=== PATIENT | male | born 1930 | race Caucasian/White ===

== ENCOUNTER 2016-12-16 08:09 | Emergency (ER) | payer OTHER ==
[2016-12-16 08:38] VITALS: TEMP 98; BMI 21.9
[2016-12-16] MEDS ORDERED: SODIUM CHLORIDE 1,000 ML IV STA (09:17)
--- NOTE | 2016-12-16 09:18 | PDOC ---
History of Present Illness - General Chief Complaint: Hematuria Stated Complaint: BLEEDING Time Seen by Provider: 12/16/16 08:31 - History of Present Illness Initial Comments: 12/16/16 09:13 85 yo M with h/o HTN, BPH, and Dementia who presents with hematuria. Patient is poor historian and speech is unclear. Patient a resident of [facility]. States that he is unsure why he presents to ED today. Denies current urinary complaints, but occasional endorses dysuria. Reports that he normally has davis catheter in place. + urinary hesitancy. + constipation with last BM 3 -4 days ago, + increased thirst with minimal oral PO hydration. Denies N/V, fevers/chills, chest pain, diaphoresis, SOB, lightheadedness, syncope, increased urinary frequency or urgency. PCP Dr. Stella Riddle. Paperwork from [facility] documents that last urinary output was 400 cc emptied at 7:30 AM. Currently 200 CC in davis bag. Per jail telephone encounter. The patient was transferred to the facility (12/13 )with 70 cc of blood in davis the following day (12/14). Orders were placed to hold ASA and observe. Patient davis was occluded internally with sediment and deflated on (12/15) with 800 cc tea colored urine drained. Recently admitted on 12/04-12/13 for AMS with bladder U/S revealing mod BL hydronephrosis 2/2 chronic bladder obx and diverticlua of bladder. Was recommenced he get cystocopic evaluation. Past History - Past Medical History Allergies/Adverse Reactions: Allergies Allergy/AdvReac Type Severity Reaction Status Date / Time No Known Allergies Allergy Verified 12/16/16 08:32 Home Medications: Ambulatory Orders Metoprolol Tartrate [Lopressor -] 50 mg PO DAILY 09/05/12 Memantine HCl [Namenda -] 5 mg PO BID #30 tab 12/13/16 Acetaminophen [Tylenol] 650 mg PO Q6H PRN 12/16/16 Levofloxacin [Levaquin] 750 mg PO DAILY #4 tab 12/16/16 Tamsulosin HCl [Flomax] 0.4 mg PO DAILY 12/16/16 Anemia: Yes COPD: No Dementia: Yes (ALZHEIMERS.) Disorders: Yes (BPH.) HTN: Yes Hypercholesterolemia: Yes - Suicide/Smoking/Psychosocial Hx Smoking History: Never smoked Have you smoked in the past 12 months: No Hx Alcohol Use: No Drug/Substance Use Hx: No Substance Use Type: None Hx Substance Use Treatment: No Review of Systems - Review of Systems Comments:: 12/16/16 09:20 GENERAL/CONSTITUTIONAL: No fever or chills. No weakness. HEAD, EYES, EARS, NOSE AND THROAT: No change in vision. No ear pain or discharge. No sore throat.- CARDIOVASCULAR: No chest pain or shortness of breath RESPIRATORY: No cough, wheezing, or hemoptysis. GASTROINTESTINAL: No nausea, vomiting, diarrhea or constipation. GENITOURINARY: + urinary hesitancy, No dysuria, frequency, or change in urination. MUSCULOSKELETAL: No joint or muscle swelling or pain. No neck or back pain. SKIN: No rash NEUROLOGIC: No headache, vertigo, loss of consciousness, or change in strength/ sensation. ENDOCRINE: No increased thirst. No abnormal weight change HEMATOLOGIC/LYMPHATIC: No anemia, easy bleeding, or history of blood clots. ALLERGIC/IMMUNOLOGIC: No hives or skin allergy. *Physical Exam - Vital Signs Last Vital Signs Temp Pulse Resp BP Pulse Ox 98 F 84 18 131/74 98 12/16/16 08:29 12/16/16 08:29 12/16/16 08:29 12/16/16 08:29 12/16/16 08:29 - Physical Exam Comments: 12/16/16 09:20 GENERAL: Awake, alert, and fully oriented, in no acute distress HEAD: No signs of trauma, normocephalic, atraumatic EYES: + conjuctival pallor. PERRLA, EOMI, sclera anicteric. ENT: Mucosal membranes dry. Auricles normal inspection, hearing grossly normal, nares patent, oropharynx clear without exudates. NECK: Normal ROM, supple, no lymphadenopathy, JVD, or masses LUNGS: No distress, speaks full sentences, clear to auscultation bilaterally HEART: Regular rate and rhythm, normal S1 and S2, no murmurs, rubs or gallops, peripheral pulses normal and equal bilaterally. ABDOMEN: + Davis catheter with dark red urine draining.200cc. Absent sediment or clots. + Suprpapubic ttp. Soft, nontender, normoactive bowel sounds. No guarding, no rebound. No masses. Neg CVA ttp. EXTREMITIES : Normal inspection, Normal range of motion, no edema. No clubbing or cyanosis. SKIN: Warm, Dry, normal turgor, no rashes or lesions noted. ED Treatment Course - LABORATORY CBC & Chemistry Diagram: 12/16/16 09:39 12/16/16 09:39 Medical Decision Making - Medical Decision Making 85 yo M with h/o HTN, BPH, and Dementia who presents with hematuria. Patient is poor historian and speech is unclear. No urinary complaints today, but occasionally endorses dysuria. No systemic complaints of fevers/chills, chest pain, diaphoresis, SOB, lightheadedness, syncope. Patient appears dehydrated with dry mucosal membranes and + suprapubic ttp. Davis catheter reveals dark red urine. Davis with obstruction (12/15). CT ( 12/07) Mod BL hydronephrosis 2/ 2 bladder obx. DDx: Hemmorhagic cystitis, UTI, Urolithiasis, davis obx. ED Course: UA, Urine Cx 12/16/16 10:39 CBC/CMP Unremarkable. UA: 12/16/16 10:39 + Nitirite, 3+ blood, 1 + Ketones Levofloxacin 750 mg. 12/16/16 11:59 Renal U/S bladder: Resolution of BL hydronephrosis ( 12/07). Continued slight prominence of right upper collecting system. *DC/Admit/Observation/Transfer Diagnosis at time of Disposition: Cystitis - Discharge Dispostion Disposition: HOME Admit: No - Prescriptions Prescriptions: Levofloxacin [Levaquin] 750 mg PO DAILY #4 tab - Referrals Referrals: Sean Riddle MD [Primary Care Provider] - - Patient Instructions Printed Discharge Instructions: DI for Acute Cystitis, DI for Hemorrhagic Cystitis Additional Instructions: Please return to ED if you experience fevers/chills, increased blood in urine, flank pain, worsening abdominal pain, or worsening symptoms. Please take Levauqin 750 mg PO QD x 4 days starting ( 12/17). - Attestations Physician Attestion: 12/16/16 12:29 I attest to the information in this chart
[2016-12-16 09:51] LABS: BASOPHIL 0.4 % (0-2.0); EOSINOPHIL 0.7 % (0-4.5); MCH 28.7 pg (25.7-33.7); MCHC 33.2 g/dl (32.0-35.9); MEAN CELL VOLUME 86.6 fl (80-96); MEAN PLT VOLUME 7.9 fl (7.5-11.1); NEUTROPHILS 82.3 % (42.8-82.8); PLATELET COUNT 280 K/MM3 (134-434); RDW 13.6 % (11.9-15.9); WHITE BLOOD COUNT 10.4 K/mm3 (4.0-10.0)
[2016-12-16 09:52] LABS: PH,URINE 6.5 (5.0-8.0); URINE BILIRUBIN 3+ (NEGATIVE); URINE BLOOD 3+ (NEGATIVE); URINE COLOR DK. RED; URINE GLUCOSE (UA) TRACE (NEGATIVE); URINE KETONE 1+ (NEGATIVE); URINE UROBILINOGEN 4.0 E.U/dl mg/dL (0.2-1.0)
[2016-12-16 09:53] LABS: URINE APPEARANCE HAZY; URINE NITRITE POSITIVE (NEGATIVE); URINE PROTEIN 3+ (NEGATIVE)
[2016-12-16 10:17] LABS: ALBUMIN 3.2 g/dl (3.4-5.0); ALK PHOS 70 U/L (45-117); ANION GAP 6 (8-16); BILIRUBIN,TOTAL 0.7 mg/dL (0.2-1.0); CALCIUM 9.1 mg/dL (8.5-10.1); CO2 28 mmol/L (21-32); CREATININE 1.1 mg/dL (0.7-1.3); GLUCOSE,RANDOM 112 mg/dL (74-106); SGOT/AST 18 U/L (15-37); SGPT/ALT 25 U/L (12-78); TOT PROT 6.4 g/dl (6.4-8.2)
[2016-12-16] MEDS ORDERED: LEVOFLOXACIN 750 MG TABLET PO SCH (11:00)
[2016-12-16] MEDS ORDERED: PRESCRIPTION PAD 1 EACH EACH NR ONE (12:28)
--- NOTE | 2016-12-16 12:35 | PDOC ---
Attending Attestation - Resident Resident Name: Adán Coello - ED Attending Attestation I have performed the following: I have examined & evaluated the patient, The case was reviewed & discussed with the resident, I agree w/resident's findings & plan, Exceptions are as noted - HPI HPI: 12/16/16 12:36 85 M with h/o HTN, BPH with chronic indwelling davis, presents to ER with hematuria. Pt denies abdominal pain. Denies F/C. Per longterm report, davis has still been draining freely without signs of obstruction. - Physicial Exam PE: 12/16/16 12:37 "GENERAL: Awake, alert, and fully oriented, in no acute distress HEAD: No signs of trauma EYES: PERRLA, EOMI, sclera anicteric, conjunctiva clear ENT: Auricles normal inspection, hearing grossly normal, nares patent, oropharynx clear without exudates. Moist mucosa NECK: Nontender, no stepoffs, Normal ROM, supple, no lymphadenopathy, JVD, or masses LUNGS: Breath sounds equal, clear to auscultation bilaterally. No wheezes, and no crackles HEART: Regular rate and rhythm, normal S1 and S2, no murmurs, rubs or gallops ABDOMEN: Soft, nontender, normoactive bowel sounds. No guarding, no rebound. No masses : Davis in place, draining red urine, no clots EXTREMITIES: Normal range of motion, no edema. No clubbing or cyanosis. No cords, erythema, or tenderness NEUROLOGICAL: Cranial nerves II through XII intact. 5/5 strength and sensation in all extremities, Normal speech, normal gait SKIN: Warm, Dry, normal turgor, no rashes or lesions noted. " - Medical Decision Making 12/16/16 12:45 85 M with hematuria. Likely UTI. Pt with no signs of obstruction at this time, davis flowing freely. - Renal US - UA 12/16/16 15:00 UA consistent with hemorrhagic cystitis. Pt reassessed - appears at baseline mentation with no complaints at this time. Davis continues to drain blood tinged urine, no evidence of clots or obstruction. Vitals normal, pt clinically stable for DC. Abx sent to pharmacy
[2016-12-16] MEDS ORDERED: LEVOFLOXACIN 250 MG TABLET (FP) ONE (12:53)
[2016-12-16] MEDS ORDERED: LEVOFLOXACIN 500 MG TABLET (FP) ONE (12:53)
[2016-12-16 13:37] VITALS: BP 129/67; PULSE 80
[2016-12-16 14:04] LABS: URINE LEUK ESTERASE 3+ (NEGATIVE)
--- NOTE | 2016-12-18 07:20 | PDOC ---
Patient Follow-up (Call Back) - Post ED Follow - Up Chief Complaint: Hematuria Condition at time of discharge: Stable Disposition at time of original discharge: SNF FACILITY Reason for Call Back: Abnwl. Microbiology (Urine cx (+) for staph coagulase neg. with colony count >100,000. Pt. appropriately treated with Levofloxacin.)
--- NOTE | 2016-12-24 11:57 | EKG ---
Test Reason : Blood Pressure : / mmHG Vent. Rate : 083 BPM Atrial Rate : 083 BPM P-R Int : 190 ms QRS Dur : 086 ms QT Int : 378 ms P-R-T Axes : 057 -19 039 degrees QTc Int : 444 ms NORMAL SINUS RHYTHM INFERIOR INFARCT , AGE UNDETERMINED ABNORMAL ECG WHEN COMPARED WITH ECG OF 06-DEC-2016 09:29, NO SIGNIFICANT CHANGE WAS FOUND Confirmed by JAMIE ROBLES MD ([id number]) on 12/24/2016 11:57:10 AM Referred By: Confirmed By:JAMIE ROBLES MD
== END 2016-12-16 13:43 ==
LOC: JER 08:09
PROC: 3E0337Z Introduction of Electrolytic and Water Balance Substance into Peripheral Vein, Percutaneous Approach (ICD-10-PCS; principal; 2016-12-16)
DX: N30.01 Acute cystitis with hematuria (principal); I10 Essential (primary) hypertension; E78.00 Pure hypercholesterolemia, unspecified; G30.9 Alzheimer's disease, unspecified; F02.80 Dementia in other diseases classified elsewhere, unspecified severity, without behavioral disturbance, psychotic disturbance, mood disturbance, and anxiety
CPT/HCPCS: 36415; 76775-TC; 80053; 81003; 81015; 85025; 87086; 87186; 93005; 93010; 99284-25

== ENCOUNTER 2017-01-31 11:52 | Day surgery (SDC) | payer OTHER ==
[2016-12-29 16:23] VITALS: BMI 22.8
[2017-01-31] MEDS ORDERED: PROPOFOL 20 ML ONE (13:24)
[2017-01-31] MEDS ORDERED: oxyCODONE HCL 5 MG TABLET PO PRN (14:32)
[2017-01-31] MEDS ORDERED: LIDOCAINE HCL/PF 2% SDV 5ML VIAL ONE (14:35)
[2017-01-31] MEDS ORDERED: LEVOFLOXACIN 500 MG IVPB 500 MG/100 ML BAG IVPB ONE ×2 (14:43→15:11)
[2017-01-31] MEDS ORDERED: LACTATED RINGERS SOLUTION 1,000 ML IV SCH (14:45)
[2017-01-31] MEDS ORDERED: LEVOFLOXACIN 500 MG PREMIX BAG IVPB ONE (14:50)
[2017-01-31] MEDS ORDERED: GENTAMICIN SO4 80 MG/2 ML VIAL IVPB ONE (15:07)
[2017-01-31] MEDS ORDERED: DEXAMETHASONE SOD PHOSPHATE 4 MG/1 ML VIAL ONE (15:10)
[2017-01-31] MEDS ORDERED: GENTAMICIN SO4 80 MG/2 ML VIAL ONE (15:11)
[2017-01-31 17:06] VITALS: TEMP 97.7
--- NOTE | 2017-01-31 17:09 | OP ---
Operative Note - Note: Operative Date: 01/31/17 Pre-Operative Diagnosis: left 1.5 cm ureteral stone Operation: cystoscopy/left retrograde pyelogram/left ureteroscopic laser lithotripsy/left ureteral stent placement Findings: 1.5cm left ureteral stone with 4/5 hydroureteronephrosis. Residual stones migrated to the left kidney Post-Operative Diagnosis: Same as Pre-op Surgeon: Jose Cruz Anesthesia: General Drains & Tubes with Location: 6 fr/24 cm left ureteral stent
[2017-01-31 19:55] VITALS: BP 153/73; PULSE 83
--- NOTE | 2017-01-31 22:46 | OP ---
DATE OF OPERATION: 01/31/2017 PREOPERATIVE DIAGNOSIS: Left ureteral stone. POSTOPERATIVE DIAGNOSIS: Left ureteral stone with a grade 4/5 hydroureteronephrosis. PROCEDURE: Cystoscopy, left retrograde pyelogram, left ureteroscopy, left ureteroscopic laser lithotripsy, left ureteral stone basketing, and left ureteral stent placement. ATTENDING: Jose Dias MD ANESTHESIA: General. DESCRIPTION OF OPERATION: The patient was brought in the operating room and placed in supine position on the operating room table. General anesthesia was administered, and the patient was placed in a dorsal lithotomy position. The patient was given a dose of gentamicin. The patient had been on Levaquin preoperatively. At this point, cystoscopy was performed. A 3+ obstructive prostate with 3+ bladder trabeculation was noted. The anatomy of the bladder was very difficult. There was gross pyuria noted on emptying the bladder. The bladder was irrigated free of all infected urine. At this point, a retrograde pyelogram was performed, which showed a 1.5+ lower left ureteral stone. A retrograde pyelogram showed a grade 4/5 hydroureteronephrosis. At this point, a wire was passed with difficulty into the kidney. With this accomplished, ureteroscopy was performed, and a large stone was noted. A holmium laser was utilized, and the stone was fragmented into multiple pieces. Stone basketing was then performed, and all remnants sent to the lab for pathology. A few fragments migrated into the kidney and will require shock wave lithotripsy at a later date. A 6-Serbian 26-cm stent was left in place. No complications were noted. The patient tolerated the procedure very well. Marybel [id number]
--- NOTE | 2017-02-02 18:06 | PATH ---
Surgical Pathology Report Patient Name: DAVID SOLIS [facility]. Rec. #: [id number] /Age/Gender: 1930 (Age: 86) / M Account: [id number] Location: U SURGICAL Taken: 01/31/2017 Received: 02/01/2017 Reported: 02/02/2017 Physicians: Jose Cruz Specimen(s) Received URETERAL STONE Clinical History Calculus of kidney Final Diagnosis URETERAL STONES, REMOVAL: URETERAL CALCULI. MACROSCOPIC DIAGNOSIS. Electronically Signed Maricruz Tuttle M.D. Gross Description Received fresh labeled "ureteral stones," is a 1.5 x 0.8 x 0.3 cm aggregate of black, irregular to fragmented calculi. The specimen is sent for chemical analysis. 02/01/201702/01/2017
[2017-02-11 00:06] LABS: CA OXALATE MONOHYDR. 95 % (.)
== END 2017-01-31 17:30 ==
LOC: JASU-SURG 11:52
PROVIDERS: ATTEND Urology
PROC: 0TF78ZZ Fragmentation in Left Ureter, Via Natural or Artificial Opening Endoscopic (ICD-10-PCS; principal; 2017-01-31 09:00)
PROC: 0T778DZ Dilation of Left Ureter with Intraluminal Device, Via Natural or Artificial Opening Endoscopic (ICD-10-PCS; 2017-01-31 09:00)
DX: N13.2 Hydronephrosis with renal and ureteral calculous obstruction (principal)
CPT/HCPCS: 36415; 76000-TC; 82360; 87086; 87186; 88300-TC; 94760

== ENCOUNTER 2017-02-04 12:19 | Inpatient (IN) | payer OTHER ==
--- NOTE | 2017-02-04 12:41 | PDOC ---
History of Present Illness - General Chief Complaint: Syncope/Near Syncope Stated Complaint: SYNCOPE Time Seen by Provider: 02/04/17 12:32 - History of Present Illness Initial Comments: 02/04/17 13:06 The patient is an 86 year old male with a history of dementia, UTI, BBH, CVA, HTN, Anemia who presents from [facility] for evaluation following a syncopal episode. The patient is a poor historian and the retirement was contacted for the history. The patient had a recent uretal stent placed on . They report that the patient had an unwitnessed fall earlier today at 3am. They report that the patient then had a syncopal episode after an hour of PT prompting his presentation to the ED today. It is unclear if the patient experienced any head trauma. The patient denies any complaints at this time besides some mild generalized weakness and does not recall the event. He denies fevers, chills, headache, SOB, chest pain, abdominal pain. Past History - Past Medical History Allergies/Adverse Reactions: Allergies Allergy/AdvReac Type Severity Reaction Status Date / Time No Known Allergies Allergy Verified 02/04/17 12:22 Home Medications: Ambulatory Orders Metoprolol Tartrate [Lopressor -] 50 mg PO DAILY 09/05/12 Memantine HCl [Namenda -] 5 mg PO BID #30 tab 12/13/16 Acetaminophen [Tylenol] 650 mg PO Q6H PRN 12/16/16 Tamsulosin HCl [Flomax] 0.4 mg PO DAILY 12/16/16 Atorvastatin Ca [Lipitor] 10 mg PO HS 12/20/16 Donepezil HCl [Aricept -] 5 mg PO DAILY 12/20/16 Mirtazapine [Remeron -] 15 mg PO HS 12/20/16 Bacitracin - [Bacitracin Topical Ointment -] 1 applic TP BID 02/04/17 Docusate Sodium [Colace -] 200 mg PO BID 02/04/17 Levofloxacin [Levaquin -] 500 mg PO DAILY 02/04/17 Polyethylene Glycol 3350 [Miralax (For Daily Use) -] 17 gm PO BID 02/04/17 Sennosides [Senna] 2 tab PO DAILY 02/04/17 Anemia: Yes CVA: No COPD: No Dementia: Yes (ALZHEIMERS.) Diabetes: No GI Disorders: No Disorders: Yes (BPH.) HTN: Yes Hypercholesterolemia: Yes Liver Disease: No Seizures: No Thyroid Disease: No - Surgical History Abdominal Surgery: No Appendectomy: No Cardiac Surgery: No Cholecystectomy: No Lung Surgery: No Neurologic Surgery: No Orthopedic Surgery: No - Suicide/Smoking/Psychosocial Hx Smoking History: Never smoked Have you smoked in the past 12 months: No Hx Alcohol Use: No Drug/Substance Use Hx: No Substance Use Type: None Hx Substance Use Treatment: No Review of Systems - Review of Systems Comments:: 02/04/17 13:12 Constitutional: No fevers, chills, fatigue, malaise HEENT: No Rhinorrhea, nasal congestion, visual changes Cardiovascular: Syncope. No chest pain, palpitations, lightheadedness Respiratory: No Cough, SOB, Hemoptysis, Gastrointestinal: No Abdominal pain, Nausea, Vomiting, Constipation, Diarrhea, Melena Genitourinary: No Dysuria, Frequency, Urgency, Hesitancy, Hematuria, Flank pain Musculoskeletal: No Myalgia, arthralgia Skin: No rashes, bruising, pallor Neurologic: No Headache, Dizziness, Numbness, or Tingling Psychiatric: No Hallucinations. No SI or HI *Physical Exam - Vital Signs Last Vital Signs Temp Pulse Resp BP Pulse Ox 97.8 F 74 18 116/71 100 02/04/17 12:22 02/04/17 12:22 02/04/17 12:22 02/04/17 12:22 02/04/17 12:22 - Physical Exam Comments: 02/04/17 13:14 General Appearance: Nourished. No Apparent Distress HEENT: EOMI, ASHLYN. No Pharyngeal Erythema, Tonsillar Exudate, Tonsillar Erythema Neck: No Cervical Lymphadenopathy Respiratory/Chest: Lungs Clear, Normal Breath Sounds. No Crackles, Rales, Rhonchi, Wheezing Cardiovascular: Regular Rhythm, Regular Rate. 2/6 systolic murmur noted on exam. No Gallops, Rubs Gastrointestinal/Abdominal: Normal Bowel Sounds, Soft. No Guarding, Rebound, Tenderness Musculoskeletal: No CVA Tenderness Extremity: Normal Capillary Refill Integumentary: Normal Color, Dry, Warm Neurologic: envelope addresser II-XII NML intact, Fully Oriented, Alert, Normal Mood/Affect, Normal Response, Heart Score/ECG Review #1 ECG reviewed & interpreted by me at: 14:01 General ECG Interpretation: Sinus Rhythm, Normal Rate, Normal Intervals, No acute ischemic changes Compared to previous ECG there are: No significant change (12/20/16) ED Treatment Course - LABORATORY CBC & Chemistry Diagram: 02/04/17 13:30 02/04/17 13:30 Medical Decision Making - Medical Decision Making 02/04/17 13:16 The patient is an 86 year old male with a history of dementia, UTI, BBH, CVA, HTN, Anemia who presents from [facility] for evaluation following a syncopal episode. Differential includes but is not limited to: Arrhythmia, ACS , dehydration, UTI, intracranial process, infectious, metabolic derangement. Given the patient's unclear history of head trauma we will obtain a head CT to evaluate for intracranial process. It is possible the patient's syncopal episode is due to his hour of PT, but given the unclear history, it is also possible that he experienced an acs or arrhythmic event. We will obtain a cbc, cmp, ua, urine culture, cardiac enzymes and EKG to evaluate for possible etiologies. We will continue to monitor and reassess. 02/04/17 18:24 cbc demonstrates an elevated wbc to 14. cmp, ua, troponin, ekg are unremarkable. Head CT is unremarkable. We believe that given the patient's syncopal episode, he requires tele obs admission for further monitoring and management. We have paged the admitting team and are awaiting callback. 02/04/17 21:28 Discussed the case with the hospitalist team who accepted the patient for admission. *DC/Admit/Observation/Transfer Diagnosis at time of Disposition: Syncope Qualifiers: Syncope type: unspecified Qualified Code(s): R55 - Syncope and collapse Fall Qualifiers: Encounter type: initial encounter Qualified Code(s): W19.XXXA - Unspecified fall, initial encounter - Discharge Dispostion Condition at time of disposition: Stable Admit: Yes - Referrals - Patient Instructions - Post Discharge Activity
[2017-02-04 13:53] LABS: BASO % 0.1 % (0-2.0); EOS % 0.1 % (0-4.5); HEMATOCRIT 31.8 % (35.4-49); HEMOGLOBIN 10.1 GM/dL (11.7-16.9); LYMPH % 3.8 % (8-40); MCH 26.8 pg (25.7-33.7); MCHC 31.6 g/dl (32.0-35.9); MEAN CELL VOLUME 84.6 fl (80-96); MEAN PLT VOLUME 8.1 fl (7.5-11.1); MONO % 3.1 % (3.8-10.2); NEUT % 92.9 % (42.8-82.8); PLATELET COUNT 243 K/MM3 (134-434); RBC 3.76 M/mm3 (4.00-5.60); RDW 14.9 % (11.9-15.9); WHITE BLOOD COUNT 14.8 K/mm3 (4.0-10.0)
[2017-02-04 14:31] LABS: ALBUMIN 2.5 g/dl (3.4-5.0); ANION GAP 11 (8-16); BILIRUBIN,TOTAL 0.4 mg/dL (0.2-1.0); BLOOD UREA NITROGEN 59 mg/dL (7-18); CALCIUM 8.7 mg/dL (8.5-10.1); CHLORIDE 106 mmol/L (98-107); CO2 25 mmol/L (21-32); CREATININE 2.2 mg/dL (0.7-1.3); GLUCOSE,RANDOM 116 mg/dL (74-106); POTASSIUM 4.5 mmol/L (3.5-5.1); SGOT/AST 31 U/L (15-37); SGPT/ALT 32 U/L (12-78); SODIUM 142 mmol/L (136-145); TOT PROT 6.9 g/dl (6.4-8.2)
[2017-02-04 14:34] LABS: ALK PHOS 87 U/L (45-117)
[2017-02-04] MEDS ORDERED: SODIUM CHLORIDE 500 ML IV STA (14:53)
--- NOTE | 2017-02-04 15:14 | PDOC ---
Attending Attestation - Resident Resident Name: Jose G Braga - ED Attending Attestation I have performed the following: I have examined & evaluated the patient, The case was reviewed & discussed with the resident, I agree w/resident's findings & plan, Exceptions are as noted - HPI HPI: 02/04/17 15:12 86-year-old with past medical history of urinary tract infection, dementia, hypertension, anemia, stroke, diabetes presents with fall versus syncope. There is a question at the retirement if the patient fell approximately 3 in the morning but the patient is unable to characterize. He also reportedly had syncope. Otherwise, per unable to obtain rest review systems given his dementia. - Physicial Exam PE: 02/04/17 15:12 GENERAL: Awake, alert. No apparent distress HEAD: No signs of trauma EYES: PERRLA, EOMI ENT: Auricles normal inspection, hearing grossly normal, nares patent, NECK: Normal ROM, supple LUNGS: Breath sounds equal, clear to auscultation bilaterally. No wheezes, and no crackles HEART: Regular rate and rhythm, normal S1 and S2, no murmurs, rubs or gallops ABDOMEN: Soft, nontender, normoactive bowel sounds. No guarding, no rebound. No masses EXTREMITIES: Normal range of motion, no edema. No clubbing or cyanosis. No cords, erythema, or tenderness NEUROLOGICAL: Cranial nerves II through XII grossly intact. SKIN: Warm, Dry, normal turgor, no rashes or lesions noted. - Medical Decision Making 02/04/17 15:12 Vital Signs Temp Pulse Resp BP Pulse Ox 97.8 F 74 18 116/71 100 02/04/17 12:22 02/04/17 12:22 02/04/17 12:22 02/04/17 12:22 02/04/17 12:22 We'll need to evaluate for syncope and potential cardiac etiology. Given the fall, we'll obtain a head CT. Labs including troponin. Cardiac telemetry. We'll obtain aUA to rule out urinary tract infection. Ultimately, the patient should be admitted to the hospital for further observation. Heart Score/ECG Review #1 ECG reviewed & interpreted by me at: 13:45 02/04/17 15:14 NSR 75, no std/tr, T wave aVL, QTC 422 msec
[2017-02-04 17:27] LABS: URINE APPEARANCE CLOUDY; URINE BILIRUBIN NEGATIVE (NEGATIVE); URINE BLOOD 2+ (NEGATIVE); URINE COLOR YELLOW; URINE GLUCOSE (UA) NEGATIVE (NEGATIVE); URINE KETONE NEGATIVE (NEGATIVE); URINE NITRITE NEGATIVE (NEGATIVE); URINE UROBILINOGEN NEGATIVE mg/dL (0.2-1.0)
[2017-02-04 18:04] LABS: URINE LEUK ESTERASE 3+ (NEGATIVE); URINE PROTEIN 2+ (NEGATIVE)
[2017-02-04 18:25] LABS: EPI CELLS RARE /HPF (FEW); URINE MUCUS RARE
[2017-02-04] MEDS ORDERED: VANCOMYCIN 1 GRAM (PRE-DOCKED) 1,000 MG/250 ML BAG IVPB ONE (20:10)
[2017-02-04] MEDS ORDERED: PIPERACIL/TAZOB 3.375 GM 3.375 GM/50 ML PREMIX IVPB ONE (20:11)
[2017-02-04] MEDS ORDERED: SODIUM CHLORIDE 1,000 ML IV SCH (20:15)
[2017-02-04] MEDS ORDERED: PIPERACILLIN/TAZOB 3.375 GM 3.375 GM in DEXTROSE 5%-WATER - 100 ML IVPB ONE (20:30)
[2017-02-04] MEDS ORDERED: VANCOMYCIN 1,000 MG in DEXTROSE 5%-WATER - 250 ML IVPB ONE (20:30)
[2017-02-04] MEDS ORDERED: PIPERACILLIN/TAZOB 3.375 GM 3.375 GM/50 ML BAG IVPB ONE (20:54)
--- NOTE | 2017-02-04 21:29 | HP ---
CHIEF COMPLAINT: PCP: HISTORY OF PRESENT ILLNESS: ER course was notable for: (1) (2) (3) Recent Travel: PAST MEDICAL HISTORY: PAST SURGICAL HISTORY: Social History: Smoking: Alcohol: Drugs: Family History: Allergies No Known Allergies Allergy (Verified 02/04/17 12:22) HOME MEDICATIONS: Home Medications Medication Instructions Recorded Metoprolol Tartrate [Lopressor -] 50 mg PO DAILY 09/05/12 Memantine HCl [Namenda -] 5 mg PO BID #30 tab 12/13/16 Acetaminophen [Tylenol] 650 mg PO Q6H PRN 12/16/16 Tamsulosin HCl [Flomax] 0.4 mg PO DAILY 12/16/16 Atorvastatin Ca [Lipitor] 10 mg PO HS 12/20/16 Donepezil HCl [Aricept -] 5 mg PO DAILY 12/20/16 Mirtazapine [Remeron -] 15 mg PO HS 12/20/16 Bacitracin - [Bacitracin Topical 1 applic TP BID 02/04/17 Ointment -] Docusate Sodium [Colace -] 200 mg PO BID 02/04/17 Levofloxacin [Levaquin -] 500 mg PO DAILY 02/04/17 Polyethylene Glycol 3350 [Miralax 17 gm PO BID 02/04/17 (For Daily Use) -] Sennosides [Senna] 2 tab PO DAILY 02/04/17 REVIEW OF SYSTEMS CONSTITUTIONAL: Absent: fever, chills, diaphoresis, generalized weakness, malaise, loss of appetite, weight change HEENT: Absent: rhinorrhea, nasal congestion, throat pain, throat swelling, difficulty swallowing, mouth swelling, ear pain, eye pain, visual changes CARDIOVASCULAR: Absent: chest pain, syncope, palpitations, irregular heart rate, lightheadedness , peripheral edema RESPIRATORY: Absent: cough, shortness of breath, dyspnea with exertion, orthopnea, wheezing, stridor, hemoptysis GASTROINTESTINAL: Absent: abdominal pain, abdominal distension, nausea, vomiting, diarrhea, constipation, melena, hematochezia GENITOURINARY: Absent: dysuria, frequency, urgency, hesitancy, hematuria, flank pain, genital pain MUSCULOSKELETAL: Absent: myalgia, arthralgia, joint swelling, back pain, neck pain SKIN: Absent: rash, itching, pallor HEMATOLOGIC/IMMUNOLOGIC: Absent: easy bleeding, easy bruising, lymphadenopathy, frequent infections ENDOCRINE: Absent: unexplained weight gain, unexplained weight loss, heat intolerance, cold intolerance NEUROLOGIC: Absent: headache, focal weakness or paresthesias, dizziness, unsteady gait, seizure, mental status changes, bladder or bowel incontinence PSYCHIATRIC: Absent: anxiety, depression, suicidal or homicidal ideation, hallucinations. PHYSICAL EXAMINATION Vital Signs - 24 hr 02/04/17 02/04/17 02/04/17 12:22 17:09 20:33 Temperature 97.8 F 98.9 F Pulse Rate 74 Pulse Rate [ 88 72 Apical] Respiratory 18 20 18 Rate Blood Pressure 116/71 Blood Pressure 146/92 98/67 [Left Arm] O2 Sat by Pulse 100 96 98 Oximetry (%) GENERAL: Awake, alert, and fully oriented, in no acute distress. HEAD: Normal with no signs of trauma. EYES: Pupils equal, round and reactive to light, extraocular movements intact, sclera anicteric, conjunctiva clear. No lid lag. EARS, NOSE, THROAT: Ears normal, nares patent, oropharynx clear without exudates. Moist mucous membranes. NECK: Normal range of motion, supple without lymphadenopathy, JVD, or masses. LUNGS: Breath sounds equal, clear to auscultation bilaterally. No wheezes, and no crackles. No accessory muscle use. HEART: Regular rate and rhythm, normal S1 and S2 without murmur, rub or gallop. ABDOMEN: Soft, nontender, not distended, normoactive bowel sounds, no guarding, no rebound, no masses. No hepatomegaly or splenomegaly. MUSCULOSKELETAL: Normal range of motion at all joints. No bony deformities or tenderness. No CVA tenderness. UPPER EXTREMITIES: 2+ pulses, warm, well-perfused. No cyanosis. No clubbing. No peripheral edema. LOWER EXTREMITIES: 2+ pulses, warm, well-perfused. No calf tenderness. No peripheral edema. NEUROLOGICAL: Cranial nerves II-XII intact. Normal speech. Normal gait. PSYCHIATRIC: Cooperative. Good eye contact. Appropriate mood and affect. SKIN: Warm, dry, normal turgor, no rashes or lesions noted, normal capillary refill. Laboratory Results - last 24 hr 02/04/17 02/04/17 02/04/17 13:30 13:30 17:00 WBC 14.8 H D RBC 3.76 L Hgb 10.1 L D Hct 31.8 L D MCV 84.6 MCH 26.8 MCHC 31.6 L RDW 14.9 Plt Count 243 D MPV 8.1 Absolute Neuts (auto) 13.7 L Absolute Lymphs (auto) 0.6 L Absolute Monos (auto) 0.5 L Absolute Eos (auto) 0.0 Absolute Basos (auto) 0.0 L Neutrophils % 92.9 H Lymphocytes % 3.8 L D Monocytes % 3.1 L Eosinophils % 0.1 Basophils % 0.1 Sodium 142 Potassium 4.5 Chloride 106 Carbon Dioxide 25 Anion Gap 11 BUN 59 H D Creatinine 2.2 H D Creat Clearance w eGFR 28.52 Random Glucose 116 H Calcium 8.7 Total Bilirubin 0.4 D AST 31 D ALT 32 D Alkaline Phosphatase 87 Creatine Kinase 32 L Troponin I < 0.02 Total Protein 6.9 Albumin 2.5 L D Urine Color Yellow Urine Appearance Cloudy Urine pH 5.0 Ur Specific [place] 1.015 Urine Protein 2+ H Urine Glucose (UA) Negative Urine Ketones Negative Urine Blood 2+ H Urine Nitrite Negative Urine Bilirubin Negative Urine Urobilinogen Negative Ur Leukocyte Esterase 2+ H Urine WBC (Auto) 163 Urine RBC (Auto) 10 Ur Epithelial Cells Rare Urine Mucus Rare ASSESSMENT/PLAN:
--- NOTE | 2017-02-04 22:12 | HP ---
CHIEF COMPLAINT: syncope PCP: Elkin Willimason HISTORY OF PRESENT ILLNESS: 86M w/ hx of dementia, UTI, BPH, nephrolithiasis s/p recent ureteral stent (), DM, CVA, BPH, HTN, anemia, and HLD presenting from [facility] after syncopal episode. Pt is a poor historian, and so history gathered from EMR and PA. Per PA, pt had an unwitnessed fall at 3am. It is unknown if the pt underwent head trauma or LOC. Later on, pt had physical therapy for one hour, after which he had a syncopal episode. The pt denies headache, fevers, chills, chest pain, SOB, abdominal pain, n/v/d/c, dysuria, urgency, and frequency. He endorses generalized weakness. ER course was notable for: (1) leukocytosis (2) KIMBERLY, UA (3) CK, Hgb Recent Travel: no PAST MEDICAL HISTORY: dementia, UTI, BPH, nephrolithiasis s/p recent ureteral stent (01/31/17), DM, CVA, BPH, HTN, anemia,, and HLD PAST SURGICAL HISTORY: Social History: Smoking: no Alcohol: no Drugs: no Family History: Allergies No Known Allergies Allergy (Verified 02/04/17 12:22) HOME MEDICATIONS: Home Medications Medication Instructions Recorded Metoprolol Tartrate [Lopressor -] 50 mg PO DAILY 09/05/12 Memantine HCl [Namenda -] 5 mg PO BID #30 tab 12/13/16 Acetaminophen [Tylenol] 650 mg PO Q6H PRN 12/16/16 Tamsulosin HCl [Flomax] 0.4 mg PO DAILY 12/16/16 Atorvastatin Ca [Lipitor] 10 mg PO HS 12/20/16 Donepezil HCl [Aricept -] 5 mg PO DAILY 12/20/16 Mirtazapine [Remeron -] 15 mg PO HS 12/20/16 Bacitracin - [Bacitracin Topical 1 applic TP BID 02/04/17 Ointment -] Docusate Sodium [Colace -] 200 mg PO BID 02/04/17 Levofloxacin [Levaquin -] 500 mg PO DAILY 02/04/17 Polyethylene Glycol 3350 [Miralax 17 gm PO BID 02/04/17 (For Daily Use) -] Sennosides [Senna] 2 tab PO DAILY 02/04/17 REVIEW OF SYSTEMS CONSTITUTIONAL: Absent: fever, chills, diaphoresis, malaise, loss of appetite, weight change present: generalized weakness HEENT: Absent: rhinorrhea, nasal congestion, throat pain, throat swelling, difficulty swallowing, mouth swelling, ear pain, eye pain, visual changes CARDIOVASCULAR: Absent: chest pain, syncope, palpitations, irregular heart rate, lightheadedness , peripheral edema RESPIRATORY: Absent: cough, shortness of breath, dyspnea with exertion, orthopnea, wheezing, stridor, hemoptysis GASTROINTESTINAL: Absent: abdominal pain, abdominal distension, nausea, vomiting, diarrhea, constipation, melena, hematochezia GENITOURINARY: Absent: dysuria, frequency, urgency, hesitancy, hematuria, flank pain, genital pain MUSCULOSKELETAL: Absent: myalgia, arthralgia, joint swelling, back pain, neck pain SKIN: Absent: rash, itching, pallor HEMATOLOGIC/IMMUNOLOGIC: Absent: easy bleeding, easy bruising, lymphadenopathy, frequent infections ENDOCRINE: Absent: unexplained weight gain, unexplained weight loss, heat intolerance, cold intolerance NEUROLOGIC: Absent: headache, focal weakness or paresthesias, dizziness, unsteady gait, seizure, mental status changes, bladder or bowel incontinence PSYCHIATRIC: Absent: anxiety, depression, suicidal or homicidal ideation, hallucinations. PHYSICAL EXAMINATION Vital Signs - 24 hr 02/04/17 02/04/17 02/04/17 12:22 17:09 20:33 Temperature 97.8 F 98.9 F Pulse Rate 74 Pulse Rate [ 88 72 Apical] Respiratory 18 20 18 Rate Blood Pressure 116/71 Blood Pressure 146/92 98/67 [Left Arm] O2 Sat by Pulse 100 96 98 Oximetry (%) GENERAL: elderly male, lying in bed, awake, alert, AAOx1 (name) HEENT: dry mucous membranes NECK: Normal range of motion, supple without lymphadenopathy, JVD, or masses. LUNGS: Breath sounds equal, clear to auscultation bilaterally. No wheezes, and no crackles. No accessory muscle use. HEART: Regular rate and rhythm, normal S1 and S2 without murmur, rub or gallop. ABDOMEN: Soft, nontender, not distended, normoactive bowel sounds, no guarding, no rebound, no masses. No hepatomegaly or splenomegaly. davis inserted. MUSCULOSKELETAL: no LE edema NEUROLOGICAL: Cranial nerves II-XII intact. mumbled speech, gait not observed SKIN: stage 2 sacral decubitus ulcer Laboratory Results - last 24 hr 02/04/17 02/04/17 02/04/17 13:30 13:30 17:00 WBC 14.8 H D RBC 3.76 L Hgb 10.1 L D Hct 31.8 L D MCV 84.6 MCH 26.8 MCHC 31.6 L RDW 14.9 Plt Count 243 D MPV 8.1 Absolute Neuts (auto) 13.7 L Absolute Lymphs (auto) 0.6 L Absolute Monos (auto) 0.5 L Absolute Eos (auto) 0.0 Absolute Basos (auto) 0.0 L Neutrophils % 92.9 H Lymphocytes % 3.8 L D Monocytes % 3.1 L Eosinophils % 0.1 Basophils % 0.1 Sodium 142 Potassium 4.5 Chloride 106 Carbon Dioxide 25 Anion Gap 11 BUN 59 H D Creatinine 2.2 H D Creat Clearance w eGFR 28.52 Random Glucose 116 H Calcium 8.7 Total Bilirubin 0.4 D AST 31 D ALT 32 D Alkaline Phosphatase 87 Creatine Kinase 32 L Troponin I < 0.02 Total Protein 6.9 Albumin 2.5 L D Urine Color Yellow Urine Appearance Cloudy Urine pH 5.0 Ur Specific [place] 1.015 Urine Protein 2+ H Urine Glucose (UA) Negative Urine Ketones Negative Urine Blood 2+ H Urine Nitrite Negative Urine Bilirubin Negative Urine Urobilinogen Negative Ur Leukocyte Esterase 2+ H Urine WBC (Auto) 163 Urine RBC (Auto) 10 Ur Epithelial Cells Rare Urine Mucus Rare CXR: negative for acute pathology CT Head: negative for any acute pathology ASSESSMENT/PLAN: 86M w/ hx of dementia, UTI, BPH, nephrolithiasis s/p recent ureteral stent (), DM, CVA, BPH, HTN, anemia, and HLD presenting from [facility] after syncopal episode, found to have leukocytosis, elevated creatinine, and UA consistent with UTI. #syncopal episode -likely 2/2 volume depletion in setting of UTI -orthostatics -EKG -echo #UTI -UA shows 2+ leukocyte esterase, 163 wbc, rare epithelial cells -leukocytosis of 14.8 with left shift -afebrile, does not meet other criteria for sepsis -vancomycin and zosyn for empiric coverage considering pt presenting from NH -normal saline @ 100cc/hr -APAP for fever -f/u Ucx, Bcx and sensitivities #KIMBERLY -creatinine of 2.2, baseline of 1 -likely pre-renal in setting of UTI and supported by BUN:creatinine of more than 20:1 -normal saline @ 100cc/hr -trend creatinine -hold nephrotoxic drugs #normocytic anemia -Hgb of 10.1, most recently 13 in 12/2016 -FOBT -trend Hgb for now -iron studies, folate, B12 -if continues to downtrend, consider GI consult #dementia -memantine aand aricept #BPH -flomax #HTN -continue home lopressor #HLD -continue home lipitor #FEN/ppx -NS @ 100 -electrolytes wnl -sodium controlled diet -no GI ppx -heparin 5000U TID -Sarbjit Washington MD PGY1 Visit type - Emergency Visit Emergency Visit: Yes ED Registration Date: 02/04/17 Care time: The patient presented to the Emergency Department on the above date and was hospitalized for further evaluation of their emergent condition. - New Patient This patient is new to me today: Yes Date on this admission: 02/04/17 - Critical Care Critical Care patient: No
--- NOTE | 2017-02-05 01:40 | PN ---
Teaching Attending Note Name of Resident: Sarbjit Washington ATTENDING PHYSICIAN STATEMENT I saw and evaluated the patient. I reviewed the resident's note and discussed the case with the resident. I agree with the resident's findings and plan as documented. SUBJECTIVE: patient presented to the ER for fall vs syncope was found to have elevated WBC, and dehydrated with KIMBERLY OBJECTIVE: class II decubitus ulcer AAOx2 lungs CTA abdomen soft non-tender s1 and S2 RRR ASSESSMENT AND PLAN: 86 y/o male patient presented for fall patient was found to be in KIMBERLY, elevated WBC admitted for SEPSIS with KIMBERLY start Vancomycin renal dose start zosyn renal dose ID evaluation IVF hydration CXR fal risk
[2017-02-05 02:14] VITALS: BMI 18.1
[2017-02-05] MEDS: HEPARIN NA (PORCINE) 5,000 UNITS/ML 1ML VIAL SQ SCH ×3 (06:40→22:16)
[2017-02-05 08:09] LABS: BASO % 0.4 % (0-2.0); EOS % 0.4 % (0-4.5); HEMATOCRIT 28.4 % (35.4-49); HEMOGLOBIN 9.2 GM/dL (11.7-16.9); LYMPH % 7.5 % (8-40); MCH 27.4 pg (25.7-33.7); MCHC 32.5 g/dl (32.0-35.9); MEAN CELL VOLUME 84.4 fl (80-96); NEUT % 87.7 % (42.8-82.8); PLATELET COUNT 227 K/MM3 (134-434); RBC 3.36 M/mm3 (4.00-5.60); RDW 14.8 % (11.9-15.9); WHITE BLOOD COUNT 8.5 K/mm3 (4.0-10.0)
[2017-02-05 08:33] LABS: CHLORIDE 112 mmol/L (98-107); POTASSIUM 3.6 mmol/L (3.5-5.1); SODIUM 147 mmol/L (136-145)
[2017-02-05 08:52] LABS: ALBUMIN 2.2 g/dl (3.4-5.0); ALK PHOS 75 U/L (45-117); ANION GAP 10 (8-16); BILIRUBIN,TOTAL 0.5 mg/dL (0.2-1.0); BLOOD UREA NITROGEN 51 mg/dL (7-18); CALCIUM 8.7 mg/dL (8.5-10.1); CO2 25 mmol/L (21-32); CREATININE 1.7 mg/dL (0.7-1.3); GLUCOSE,RANDOM 92 mg/dL (74-106); MAGNESIUM 2.4 mg/dL (1.8-2.4); PHOSPHOROUS 2.6 mg/dL (2.5-4.9); SGOT/AST 43 U/L (15-37); SGPT/ALT 39 U/L (12-78)
[2017-02-05] MEDS ORDERED: PNEUMOC 13-VAL CONJ-DIP CRM/PF 0.5 ML DISP.SYRIN IM ONE (09:00)
[2017-02-05] MEDS ORDERED: FLU VACCINE QUAD 60 MCG/0.5 ML (MDV 17-18) IM ONE (09:00)
[2017-02-05] MEDS ORDERED: PT OWN MED DRAWER 7, Y5N ONE (09:42)
[2017-02-05] MEDS: DOCUSATE SODIUM 100 MG CAPSULE (FP) PO SCH ×3 (10:05→22:26)
[2017-02-05] MEDS: METOPROLOL TARTRATE 50 MG TABLET (FP) PO SCH (10:06)
[2017-02-05] MEDS: MEMANTINE HCL 5 MG TABLET (UD) PO SCH ×2 (10:06→22:16)
[2017-02-05] MEDS: SENNOSIDES 8.6MG TABLET (FP) PO SCH (10:06)
[2017-02-05] MEDS: TAMSULOSIN HCL 0.4 MG CAP.ER.24H (FP) PO SCH (10:06)
[2017-02-05] MEDS: POLYETHYLENE GLYCOL 3350 119 GM BTL PO SCH ×2 (10:06→22:25)
[2017-02-05] MEDS: DEXTROSE 5%-0.45% SALINE 1,000 ML IV SCH (11:39)
[2017-02-05] MEDS: CEFTRIAXONE 1 G/50 ML PREMIX 50 ML IVPB SCH (13:40)
--- NOTE | 2017-02-05 15:22 | PN ---
Progress Note (short form) - Note Progress Note: pt seen/ examined chart reviewed awake/ comfortable poor historian. low grade temp. Vital Signs Temp 99.2 F 02/05/17 09:00 Pulse 85 02/05/17 09:00 Resp 20 02/05/17 09:00 BP 132/71 02/05/17 09:00 Pulse Ox 97 02/05/17 09:00 Intake & Output 02/04/17 02/05/17 02/05/17 23:59 11:59 23:59 Intake Total 0 50 Output Total 500 300 Balance -500 -300 50 Weight 150 lb 123 lb 3.2 oz Intake: IV 0 Normal Saline - 1,000 ml 0 @ 100 mls/hr IV ASDIR [facility] Rx#:[id number] Oral 50 Output: Urine 500 300 Singh 500 300 Other: Voiding Method Indwelling Catheter Indwelling Catheter Indwelling Catheter Bowel Movement No Height 5 ft 9 in 5 ft 9 in Body Mass Index (BMI) 22.1 18.1 Weight Measurement Method Standing Scale Active Medications Atorvastatin Calcium (Lipitor -) 10 mg PO HS [facility] Docusate Sodium (Colace -) 200 mg PO BID [facility] Last Admin: 02/05/17 10:05 Dose: 200 mg Donepezil HCl (Aricept -) 5 mg PO HS [facility] Heparin Sodium (Porcine) (Heparin -) 5,000 unit SQ TID [facility] Last Admin: 02/05/17 14:16 Dose: 5,000 unit CEFTRIAXONE 1 G/50 ML PREMIX (Ceftriaxone 1 Gm-D5w Bag) 50 mls @ 100 mls/hr IVPB DAILY [facility] Last Admin: 02/05/17 13:40 Dose: 100 mls/hr Dextrose/Sodium Chloride (D5-1/2ns -) 1,000 mls @ 100 mls/hr IV ASDIR [facility] Last Admin: 02/05/17 11:39 Dose: 100 mls/hr Memantine (Namenda -) 5 mg PO BID [facility] Last Admin: 02/05/17 10:06 Dose: 5 mg Metoprolol Tartrate (Lopressor -) 50 mg PO DAILY [facility] Last Admin: 02/05/17 10:06 Dose: 50 mg Mirtazapine (Remeron -) 15 mg PO HS [facility] Polyethylene Glycol (Miralax (For Daily Use) -) 17 gm PO BID [facility] Last Admin: 02/05/17 10:06 Dose: 17 grams Senna (Senna -) 2 tab PO DAILY [facility] Last Admin: 02/05/17 10:06 Dose: 2 tab Tamsulosin HCl (Flomax -) 0.4 mg PO DAILY@0830 [facility] Last Admin: 02/05/17 10:06 Dose: 0.4 mg CBC, BMP 02/05/17 05:48 02/05/17 05:48 u/s - carotid -ok Physical Exam. awake/ comfortable. lungs- claer cvs- s1, s2 rrr abd - soft ext- no edema neuro- awake. not oriented ASSESSMENT/PLAN: 86M w/ hx of dementia, UTI, BPH, nephrolithiasis s/p recent ureteral stent (), DM, CVA, BPH, HTN, anemia, and HLD presenting from [facility] after syncopal episode, found to have leukocytosis, elevated creatinine, and UA consistent with UTI. #syncopal episode -likely 2/2 volume depletion in setting of UTI -orthostatics -EKG -echo -abx f/u cultures change fluids due to hypernatremia cr better increased ferritin-- repeat continue other meds cardiology consult monitor on tele dvt prophylaxis. will follow. Problem List - Problems (1) Dementia Code(s): F03.90 - UNSPECIFIED DEMENTIA WITHOUT BEHAVIORAL DISTURBANCE (2) Fall Code(s): W19.XXXA - UNSPECIFIED FALL, INITIAL ENCOUNTER Qualifiers: Encounter type: initial encounter Qualified Code(s): W19.XXXA - Unspecified fall, initial encounter (3) Syncope Code(s): R55 - SYNCOPE AND COLLAPSE Qualifiers: Syncope type: unspecified Qualified Code(s): R55 - Syncope and collapse (4) Diabetes mellitus Code(s): E11.9 - TYPE 2 DIABETES MELLITUS WITHOUT COMPLICATIONS (5) Urinary retention due to benign prostatic hyperplasia Code(s): N40.1 - BENIGN PROSTATIC HYPERPLASIA WITH LOWER URINARY TRACT SYMP; R33.8 - OTHER RETENTION OF URINE
--- NOTE | 2017-02-05 16:27 | EKG ---
Test Reason : Blood Pressure : / mmHG Vent. Rate : 075 BPM Atrial Rate : 075 BPM P-R Int : 148 ms QRS Dur : 084 ms QT Int : 378 ms P-R-T Axes : 035 -02 064 degrees QTc Int : 422 ms NORMAL SINUS RHYTHM NORMAL ECG WHEN COMPARED WITH ECG OF 20-DEC-2016 05:06, NO SIGNIFICANT CHANGE WAS FOUND Confirmed by RAJ GONZALEZ MD ([id number]) on 02/05/2017 4:26:36 PM Referred By: Confirmed By:RAJ GONZALEZ MD
--- NOTE | 2017-02-05 17:14 | CON.CARD ---
Consult Consult Specialty:: cardiology Reason for Consultation:: syncope - History of Present Illness Chief Complaint: Pt is not aware of fall. History of Present Illness: The patient is an 86 year old white male with a history of dementia, UTI, BBH, CVA, HTN, Anemia who presents from [facility] for evaluation following a syncopal episode. The patient is a poor historian and the retirement was contacted for the history. The patient had a ureteral stent placed on 01/31/17. They report that the patient had an unwitnessed fall earlier today at 3am. They report that the patient then had a syncopal episode after an hour of PT prompting his presentation to the ED today. It is unclear if the patient experienced any head trauma. The patient denies any complaints at this time besides some mild generalized weakness and does not recall the event. He denies fevers, chills, headache, SOB, chest pain, abdominal pain. - History Source History Provided By: Family Member, Medical Record Limitations to Obtaining History: Dementia - Past Medical History [employer]: Yes: Dementia, Syncope Cardio/Vascular: Yes: HTN Heme/Onc: Yes: Anemia Psych: Yes: Other (dementia) Endocrine: Yes: Diabetes Mellitus (NIIDM) - Alcohol/Substance Use Hx Alcohol Use: No - Smoking History Smoking history: Never smoked Have you smoked in the past 12 months: No Home Medications - Allergies Allergies/Adverse Reactions: Allergies Allergy/AdvReac Type Severity Reaction Status Date / Time No Known Allergies Allergy Verified 02/04/17 12:22 - Home Medications Home Medications: Ambulatory Orders Metoprolol Tartrate [Lopressor -] 50 mg PO DAILY 09/05/12 Memantine HCl [Namenda -] 5 mg PO BID #30 tab 12/13/16 Acetaminophen [Tylenol] 650 mg PO Q6H PRN 12/16/16 Tamsulosin HCl [Flomax] 0.4 mg PO DAILY 12/16/16 Atorvastatin Ca [Lipitor] 10 mg PO HS 12/20/16 Donepezil HCl [Aricept -] 5 mg PO DAILY 12/20/16 Mirtazapine [Remeron -] 15 mg PO HS 12/20/16 Bacitracin - [Bacitracin Topical Ointment -] 1 applic TP BID 02/04/17 Docusate Sodium [Colace -] 200 mg PO BID 02/04/17 Polyethylene Glycol 3350 [Miralax 119 gm Btl -] 17 gm PO BID 02/04/17 Sennosides [Senna -] 2 tab PO DAILY 02/04/17 Alprazolam [Xanax] 0.25 mg PO Q8H PRN #30 tablet MDD 3 02/10/17 Heparin - 5,000 unit SQ TID vial 02/10/17 Family Disease History - Family Disease History Family History: Denies Review of Systems - Review of Systems Constitutional: reports: Weakness, Other (dementia) Eyes: reports: No Symptoms HENT: reports: No Symptoms Neck: reports: No Symptoms Cardiovascular: reports: No Symptoms Respiratory: reports: No Symptoms Gastrointestinal: reports: No Symptoms Genitourinary: reports: No Symptoms Breasts: reports: No Symptoms Reported Musculoskeletal: reports: Muscle Weakness Neurological: reports: Confusion, Syncope, Weakness Psychiatric: reports: Other - Risk Factors Known Risk Factors: Yes: Age, Gender, Physical Inactivity, Other (dementia; syncope) Vital Signs: Vital Signs Temperature 98.6 F 02/05/17 14:00 Pulse Rate 79 02/05/17 14:00 Respiratory Rate 20 02/05/17 09:00 Blood Pressure 126/54 02/05/17 14:00 O2 Sat by Pulse Oximetry (%) 97 02/05/17 09:00 Constitutional: Yes: Anxious, Thin Eyes: Yes: WNL HENT: Yes: WNL Neck: Yes: WNL Respiratory: Yes: Regular Gastrointestinal: Yes: Soft Renal/: No: Anuria Cardiovascular: Yes: Regular Rate and Rhythm JVD: No Carotid Bruit: No PMI: Non-Displaced Heart Sounds: Yes: S1, S2 Murmur: Yes: Systolic Murmur, Grade 1 Musculoskeletal: Yes: Muscle Weakness Extremities: Yes: Cool Edema: No Peripheral Pulses WNL: No Peripheral Pulses: 1+ Left Doralis Pedis, 1+ Right Dorsalis Pedis Integumentary: Yes: WNL Neurological: Yes: Confusion, Weakness Psychiatric: Yes: Other - Other Data Labs, Other Data: CBC, BMP 02/05/17 05:48 02/05/17 05:48 Abnormal Lab Results 02/16/17 02/18/17 02/18/17 06:00 07:05 07:05 RBC 2.92 L Hgb 8.0 L Hct 24.5 L Chloride 109 H Random Glucose 113 H D Calcium 7.7 L AST 45 H D Total Protein 5.5 L Albumin 1.7 L Hepatitis A Ab Total Positive H Imaging - Results Chest X-ray: Image Reviewed (no acute pathology) EKG: Image Reviewed (normal study) Problem List - Problems (1) Dementia Assessment/Plan: f/u with psychiatry,neurology. Code(s): F03.90 - UNSPECIFIED DEMENTIA WITHOUT BEHAVIORAL DISTURBANCE (2) Anemia Code(s): D64.9 - ANEMIA, UNSPECIFIED Qualifiers: Other causes of anemia: acute posthemorrhagic (3) Fall Code(s): W19.XXXA - UNSPECIFIED FALL, INITIAL ENCOUNTER Qualifiers: Encounter type: initial encounter Qualified Code(s): W19.XXXA - Unspecified fall, initial encounter (4) Syncope Assessment/Plan: orthostatic VS EKG: normal study. CXR: no acute changes. Normal LVEF on ECHO; no significant . Maintain hydration. F/u carotid US. F/u CT headf Code(s): R55 - SYNCOPE AND COLLAPSE Qualifiers: Syncope type: unspecified Qualified Code(s): R55 - Syncope and collapse (5) Diabetes mellitus Code(s): E11.9 - TYPE 2 DIABETES MELLITUS WITHOUT COMPLICATIONS
[2017-02-05] MEDS: MIRTAZAPINE 15 MG TABLET (FP) PO SCH (22:16)
[2017-02-05] MEDS: DONEPEZIL HCL 5 MG TABLET (FP) PO SCH (22:16)
[2017-02-05] MEDS: ATORVASTATIN CA 10 MG TABLET (FP) PO SCH (22:16)
[2017-02-06] MEDS: HEPARIN NA (PORCINE) 5,000 UNITS/ML 1ML VIAL SQ SCH ×3 (06:31→22:37)
[2017-02-06 06:36] LABS: SERUM IRON SATURATION 32 % (15-55); TOTAL IRON BINDING CAPACITY 129 ug/dL (250-450); UIBC 88 ug/dL (111-343)
[2017-02-06 07:59] LABS: BASO % 0.4 % (0-2.0); EOS % 1.4 % (0-4.5); HEMOGLOBIN 8.8 GM/dL (11.7-16.9); LYMPH % 11.6 % (8-40); MCH 26.8 pg (25.7-33.7); MCHC 31.6 g/dl (32.0-35.9); MEAN CELL VOLUME 84.8 fl (80-96); MONO % 5.6 % (3.8-10.2); PLATELET COUNT 224 K/MM3 (134-434); RDW 15.2 % (11.9-15.9); WHITE BLOOD COUNT 7.6 K/mm3 (4.0-10.0)
[2017-02-06 08:25] LABS: ALBUMIN 2.1 g/dl (3.4-5.0); ALK PHOS 66 U/L (45-117); ANION GAP 8 (8-16); BILIRUBIN,TOTAL 0.4 mg/dL (0.2-1.0); BLOOD UREA NITROGEN 38 mg/dL (7-18); CALCIUM 7.8 mg/dL (8.5-10.1); CHLORIDE 114 mmol/L (98-107); CO2 26 mmol/L (21-32); CREATININE 1.4 mg/dL (0.7-1.3); GLUCOSE,RANDOM 125 mg/dL (74-106); POTASSIUM 3.5 mmol/L (3.5-5.1); SGOT/AST 26 U/L (15-37); SGPT/ALT 33 U/L (12-78); SODIUM 148 mmol/L (136-145); TOT PROT 5.5 g/dl (6.4-8.2)
[2017-02-06] MEDS: POLYETHYLENE GLYCOL 3350 119 GM BTL PO SCH ×2 (09:09→22:37)
[2017-02-06] MEDS: SENNOSIDES 8.6MG TABLET (FP) PO SCH (09:09)
[2017-02-06] MEDS: MEMANTINE HCL 5 MG TABLET (UD) PO SCH ×2 (09:09→22:37)
[2017-02-06] MEDS: TAMSULOSIN HCL 0.4 MG CAP.ER.24H (FP) PO SCH (09:09)
[2017-02-06] MEDS: METOPROLOL TARTRATE 50 MG TABLET (FP) PO SCH (09:09)
[2017-02-06] MEDS: DOCUSATE SODIUM 100 MG CAPSULE (FP) PO SCH ×2 (09:09→22:37)
[2017-02-06] MEDS: CEFTRIAXONE 1 G/50 ML PREMIX 50 ML IVPB SCH (09:09)
[2017-02-06] MEDS: DEXTROSE 5%-0.45% SALINE 1,000 ML IV SCH (09:17)
--- NOTE | 2017-02-06 13:01 | CONSULT ---
Consult Consult Specialty:: Hematology Referred by:: Medicine Reason for Consultation:: Elevated ferritin - History of Present Illness Chief Complaint: Patient with history as reported by admitting MD below: "The patient is an 86 year old male with a history of dementia, UTI, BBH, CVA, HTN, Anemia who presents from [facility] for evaluation following a syncopal episode. The patient is a poor historian and the [facility] was contacted for the history. The patient had a recent uretal stent placed on . They report that the patient had an unwitnessed fall earlier today at 3am. They report that the patient then had a syncopal episode after an hour of PT prompting his presentation to the ED today. It is unclear if the patient experienced any head trauma. The patient denies any complaints at this time besides some mild generalized weakness and does not recall the event. He denies fevers, chills, headache, SOB, chest pain, abdominal pain.". Since admission has been treated with empiric Abics and IV fluids, with resolution of leukocytosis and improvementin mental status. Current consult for reported ferritin > 3000 yesterday. - History Source History Provided By: Medical Record Limitations to Obtaining History: Dementia - Past Medical History Cardio/Vascular: Yes: HTN Endocrine: Yes: Diabetes Mellitus (NIIDM) - Alcohol/Substance Use Hx Alcohol Use: No - Smoking History Smoking history: Never smoked Have you smoked in the past 12 months: No Home Medications - Allergies Allergies/Adverse Reactions: Allergies Allergy/AdvReac Type Severity Reaction Status Date / Time No Known Allergies Allergy Verified 02/04/17 12:22 - Home Medications Home Medications: Ambulatory Orders Metoprolol Tartrate [Lopressor -] 50 mg PO DAILY 09/05/12 Memantine HCl [Namenda -] 5 mg PO BID #30 tab 12/13/16 Acetaminophen [Tylenol] 650 mg PO Q6H PRN 12/16/16 Tamsulosin HCl [Flomax] 0.4 mg PO DAILY 12/16/16 Atorvastatin Ca [Lipitor] 10 mg PO HS 12/20/16 Donepezil HCl [Aricept -] 5 mg PO DAILY 12/20/16 Mirtazapine [Remeron -] 15 mg PO HS 12/20/16 Bacitracin - [Bacitracin Topical Ointment -] 1 applic TP BID 02/04/17 Docusate Sodium [Colace -] 200 mg PO BID 02/04/17 Levofloxacin [Levaquin -] 500 mg PO DAILY 02/04/17 Polyethylene Glycol 3350 [Miralax (For Daily Use) -] 17 gm PO BID 02/04/17 Sennosides [Senna] 2 tab PO DAILY 02/04/17 Physical Exam Vital Signs: Vital Signs Temperature 98.3 F 02/06/17 07:14 Pulse Rate 67 02/06/17 07:14 Respiratory Rate 18 02/06/17 07:19 Blood Pressure 134/66 02/06/17 07:14 O2 Sat by Pulse Oximetry (%) 98 02/06/17 07:19 Constitutional: Yes: No Distress, Cachectic, Other (Dry mucosa) Eyes: Yes: Conjunctiva Clear, EOM Intact HENT: Yes: Normocephalic Neck: Yes: Supple, Trachea Midline. No: Lymphadenopathy Cardiovascular: Yes: Regular Rate and Rhythm, S1, S2. No: Gallop, Murmur Respiratory: Yes: Regular, CTA Bilaterally. No: Diminished, Rales, Rhonchi Gastrointestinal: Yes: Normal Bowel Sounds, Soft. No: Ascites, Hepatomegaly, Palpable Mass, Splenomegaly Edema: No Peripheral Pulses WNL: Yes Integumentary: No: Rash Neurological: Yes: Alert, Confusion, Dysarthria. No: Oriented ...Motor Strength: WNL Psychiatric: No: Agitated Labs: CBC, BMP 02/06/17 05:45 02/06/17 05:45 Assessment/Plan Elderly male, [place] resident, dementia, presnents with syncopal epsiode, likely attributable to URI (Pseudomonas in urine) and dehydration. Doing better with Abics an dIV fluid. Appears to still be behind on fluids. Elevated ferritin is attributable to inflammation and not reflective of increased iron stores - would expect serum ferritin levels to diminish rapidly with resolution of his acute issue. Observe only. Noted to have mild normocytic anemia - possibly anemia of chronic disease, but with possibly elevated protein gap would not be unreasonable to screen for myeloma.
--- NOTE | 2017-02-06 13:15 | PN ---
Progress Note (short form) - Note Progress Note: comfortable no complains poor historian. denies pain. Vital Signs Temp 98.3 F 02/06/17 07:14 Pulse 67 02/06/17 07:14 Resp 18 02/06/17 07:19 BP 134/66 02/06/17 07:14 Pulse Ox 98 02/06/17 07:19 Intake & Output 02/05/17 02/06/17 02/06/17 23:59 11:59 23:59 Intake Total 810 820 Output Total 500 375 Balance 310 445 Intake: IV 400 700 D5-1/2Ns - 1,000 ml @ 100 400 700 mls/hr IV ASDIR [facility] Rx#: [id number] Oral 410 120 Output: Urine 500 375 Davis 500 375 Other: Voiding Method Indwelling Catheter Indwelling Catheter Bowel Movement No Active Medications Atorvastatin Calcium (Lipitor -) 10 mg PO HS [facility] Last Admin: 02/05/17 22:16 Dose: 10 mg Docusate Sodium (Colace -) 200 mg PO BID [facility] Last Admin: 02/06/17 09:09 Dose: 200 mg Donepezil HCl (Aricept -) 5 mg PO HS [facility] Last Admin: 02/05/17 22:16 Dose: 5 mg Heparin Sodium (Porcine) (Heparin -) 5,000 unit SQ TID [facility] Last Admin: 02/06/17 06:31 Dose: 5,000 unit CEFTRIAXONE 1 G/50 ML PREMIX (Ceftriaxone 1 Gm-D5w Bag) 50 mls @ 100 mls/hr IVPB DAILY [facility] Last Admin: 02/06/17 09:09 Dose: 100 mls/hr Dextrose/Sodium Chloride (D5-1/2ns -) 1,000 mls @ 100 mls/hr IV ASDIR [facility] Last Admin: 02/06/17 09:17 Dose: 100 mls/hr Memantine (Namenda -) 5 mg PO BID [facility] Last Admin: 02/06/17 09:09 Dose: 5 mg Metoprolol Tartrate (Lopressor -) 50 mg PO DAILY [facility] Last Admin: 02/06/17 09:09 Dose: 50 mg Mirtazapine (Remeron -) 15 mg PO HS [facility] Last Admin: 02/05/17 22:16 Dose: 15 mg Polyethylene Glycol (Miralax (For Daily Use) -) 17 gm PO BID [facility] Last Admin: 02/06/17 09:09 Dose: 17 grams Senna (Senna -) 2 tab PO DAILY [facility] Last Admin: 02/06/17 09:09 Dose: 2 tab Tamsulosin HCl (Flomax -) 0.4 mg PO DAILY@0830 [facility] Last Admin: 02/06/17 09:09 Dose: 0.4 mg CBC, BMP 02/06/17 05:45 02/06/17 05:45 Microbiology 02/04/17 17:00 Urine Culture - Preliminary Urine - Urine Davis Pseudomonas Species 02/04/17 20:30 Blood Culture - Preliminary Blood - Peripheral Venous NO GROWTH OBTAINED AFTER 24 HOURS, INCUBATION TO CONTINUE FOR 4 DAYS. 02/04/17 20:30 Blood Culture - Preliminary Blood - Peripheral Venous NO GROWTH OBTAINED AFTER 24 HOURS, INCUBATION TO CONTINUE FOR 4 DAYS. Physical Exam. awake/ comfortable. lungs- clear cvs- s1, s2 rrr abd - soft/ non tender ext- no edema neuro- awake. not oriented. davis + ASSESSMENT/PLAN: 86M w/ hx of dementia, UTI, BPH, nephrolithiasis s/p recent ureteral stent (), DM, CVA, BPH, HTN, anemia, and HLD presenting from [facility] after syncopal episode, found to have leukocytosis, elevated creatinine, and UA consistent with UTI. #syncopal episode -likely 2/2 volume depletion in setting of UTI -orthostatics -EKG -echo -abx f/u cultures-- growing psudo- sensitivity pending . change fluids due to hypernatremia cr better increased ferritin-- repeat continue other meds cardiology consult-- monitor on tele dvt prophylaxis. will follow. will consult urology also to follow- recent stent/ davis hematology consult also requested for elevated ferritin significantly high for me to say that its only reactive will follow. Problem List - Problems (1) Dementia Code(s): F03.90 - UNSPECIFIED DEMENTIA WITHOUT BEHAVIORAL DISTURBANCE (2) Fall Code(s): W19.XXXA - UNSPECIFIED FALL, INITIAL ENCOUNTER Qualifiers: Encounter type: initial encounter Qualified Code(s): W19.XXXA - Unspecified fall, initial encounter (3) Syncope Code(s): R55 - SYNCOPE AND COLLAPSE Qualifiers: Syncope type: unspecified Qualified Code(s): R55 - Syncope and collapse (4) Diabetes mellitus Code(s): E11.9 - TYPE 2 DIABETES MELLITUS WITHOUT COMPLICATIONS (5) Urinary retention due to benign prostatic hyperplasia Code(s): N40.1 - BENIGN PROSTATIC HYPERPLASIA WITH LOWER URINARY TRACT SYMP; R33.8 - OTHER RETENTION OF URINE
[2017-02-06] MEDS: MIRTAZAPINE 15 MG TABLET (FP) PO SCH (22:37)
[2017-02-06] MEDS: DONEPEZIL HCL 5 MG TABLET (FP) PO SCH (22:37)
[2017-02-06] MEDS: ATORVASTATIN CA 10 MG TABLET (FP) PO SCH (22:37)
[2017-02-07] MEDS: HEPARIN NA (PORCINE) 5,000 UNITS/ML 1ML VIAL SQ SCH ×3 (06:14→22:09)
[2017-02-07 07:44] LABS: BASO % 0.4 % (0-2.0); EOS % 1.7 % (0-4.5); HEMATOCRIT 26.7 % (35.4-49); HEMOGLOBIN 8.4 GM/dL (11.7-16.9); LYMPH % 13.1 % (8-40); MCH 26.8 pg (25.7-33.7); MCHC 31.6 g/dl (32.0-35.9); MEAN CELL VOLUME 84.7 fl (80-96); MEAN PLT VOLUME 7.8 fl (7.5-11.1); MONO % 7.2 % (3.8-10.2); NEUT % 77.6 % (42.8-82.8); PLATELET COUNT 213 K/MM3 (134-434); RBC 3.15 M/mm3 (4.00-5.60); RDW 14.9 % (11.9-15.9); WHITE BLOOD COUNT 6.9 K/mm3 (4.0-10.0)
[2017-02-07 08:48] LABS: ALBUMIN 1.9 g/dl (3.4-5.0); ALK PHOS 68 U/L (45-117); ANION GAP 6 (8-16); BILIRUBIN,TOTAL 0.3 mg/dL (0.2-1.0); BLOOD UREA NITROGEN 28 mg/dL (7-18); CALCIUM 7.3 mg/dL (8.5-10.1); CHLORIDE 117 mmol/L (98-107); CO2 25 mmol/L (21-32); CREATININE 1.2 mg/dL (0.7-1.3); GLUCOSE,RANDOM 110 mg/dL (74-106); POTASSIUM 3.6 mmol/L (3.5-5.1); SGOT/AST 32 U/L (15-37); SGPT/ALT 38 U/L (12-78); SODIUM 148 mmol/L (136-145); TOT PROT 5.3 g/dl (6.4-8.2)
[2017-02-07] MEDS: MEMANTINE HCL 5 MG TABLET (UD) PO SCH ×2 (09:08→22:09)
[2017-02-07] MEDS: DEXTROSE 5%-0.45% SALINE 1,000 ML IV SCH ×2 (09:08→11:10)
[2017-02-07] MEDS: TAMSULOSIN HCL 0.4 MG CAP.ER.24H (FP) PO SCH (09:08)
[2017-02-07] MEDS: SENNOSIDES 8.6MG TABLET (FP) PO SCH (09:08)
[2017-02-07] MEDS: METOPROLOL TARTRATE 50 MG TABLET (FP) PO SCH (09:08)
[2017-02-07] MEDS: DOCUSATE SODIUM 100 MG CAPSULE (FP) PO SCH ×2 (09:08→22:09)
[2017-02-07] MEDS: CEFTRIAXONE 1 G/50 ML PREMIX 50 ML IVPB SCH (09:08)
[2017-02-07] MEDS: POLYETHYLENE GLYCOL 3350 119 GM BTL PO SCH ×2 (09:09→22:10)
--- NOTE | 2017-02-07 12:35 | PN ---
Progress Note (short form) - Note Progress Note: comfortable no complains feels ok eating lunch poor historian. denies pain. Vital Signs Temp 97.6 F 02/07/17 07:15 Pulse 70 02/07/17 07:15 Resp 18 02/07/17 07:17 BP 123/69 02/07/17 07:15 Pulse Ox 96 02/07/17 07:17 Intake & Output 02/06/17 02/07/17 02/07/17 23:59 11:59 23:59 Intake Total 1260 820 Output Total 175 200 Balance 1085 620 Intake: IV 800 820 D5-1/2Ns - 1,000 ml @ 100 800 820 mls/hr IV ASDIR [facility] Rx#: [id number] IVPB 100 Oral 360 Output: Urine 175 200 Davis 175 200 Other: Voiding Method Indwelling Catheter Indwelling Catheter # Unmeasured Voids Davis 1 Bowel Movement No Active Medications Atorvastatin Calcium (Lipitor -) 10 mg PO HS [facility] Last Admin: 02/06/17 22:37 Dose: 10 mg Docusate Sodium (Colace -) 200 mg PO BID [facility] Last Admin: 02/07/17 09:08 Dose: 200 mg Donepezil HCl (Aricept -) 5 mg PO HS [facility] Last Admin: 02/06/17 22:37 Dose: 5 mg Heparin Sodium (Porcine) (Heparin -) 5,000 unit SQ TID [facility] Last Admin: 02/07/17 06:14 Dose: 5,000 unit CEFTRIAXONE 1 G/50 ML PREMIX (Ceftriaxone 1 Gm-D5w Bag) 50 mls @ 100 mls/hr IVPB DAILY [facility] Last Admin: 02/07/17 09:08 Dose: 100 mls/hr Dextrose/Sodium Chloride (D5-1/2ns -) 1,000 mls @ 100 mls/hr IV ASDIR [facility] Last Admin: 02/07/17 11:10 Dose: Not Given Memantine (Namenda -) 5 mg PO BID [facility] Last Admin: 02/07/17 09:08 Dose: 5 mg Metoprolol Tartrate (Lopressor -) 50 mg PO DAILY [facility] Last Admin: 02/07/17 09:08 Dose: 50 mg Mirtazapine (Remeron -) 15 mg PO HS [facility] Last Admin: 02/06/17 22:37 Dose: 15 mg Polyethylene Glycol (Miralax (For Daily Use) -) 17 gm PO BID [facility] Last Admin: 02/07/17 09:09 Dose: 17 grams Senna (Senna -) 2 tab PO DAILY [facility] Last Admin: 02/07/17 09:08 Dose: 2 tab Tamsulosin HCl (Flomax -) 0.4 mg PO DAILY@0830 [facility] Last Admin: 02/07/17 09:08 Dose: 0.4 mg CBC, BMP 02/07/17 05:45 02/07/17 05:45 Microbiology 02/04/17 17:00 Urine Culture - Final Urine - Urine [facility] Pseudomonas Aeruginosa 02/04/17 20:30 Blood Culture - Preliminary Blood - Peripheral Venous NO GROWTH OBTAINED AFTER 48 HOURS, INCUBATION TO CONTINUE FOR 3 DAYS. 02/04/17 20:30 Blood Culture - Preliminary Blood - Peripheral Venous NO GROWTH OBTAINED AFTER 48 HOURS, INCUBATION TO CONTINUE FOR 3 DAYS. Physical Exam. awake/ comfortable. lungs- clear cvs- s1, s2 rrr abd - soft/ non tender ext- no edema neuro- awake. not oriented. davis + ASSESSMENT/PLAN: clinically stable abx decrease in h/h no jean bleeding stool for occult blood pending f/u [facility] urology consult pending will follow Problem List - Problems (1) Dementia Code(s): F03.90 - UNSPECIFIED DEMENTIA WITHOUT BEHAVIORAL DISTURBANCE (2) Fall Code(s): W19.XXXA - UNSPECIFIED FALL, INITIAL ENCOUNTER Qualifiers: Encounter type: initial encounter Qualified Code(s): W19.XXXA - Unspecified fall, initial encounter (3) Syncope Code(s): R55 - SYNCOPE AND COLLAPSE Qualifiers: Syncope type: unspecified Qualified Code(s): R55 - Syncope and collapse (4) Diabetes mellitus Code(s): E11.9 - TYPE 2 DIABETES MELLITUS WITHOUT COMPLICATIONS (5) Urinary retention due to benign prostatic hyperplasia Code(s): N40.1 - BENIGN PROSTATIC HYPERPLASIA WITH LOWER URINARY TRACT SYMP; R33.8 - OTHER RETENTION OF URINE
--- NOTE | 2017-02-07 14:36 | PN ---
Progress Note (short form) - Note Progress Note: Last Vital Signs Temp Pulse Resp BP Pulse Ox 97.6 F 70 18 123/69 96 02/07/17 07:15 02/07/17 07:15 02/07/17 07:17 02/07/17 07:15 02/07/17 07:17 CBC, BMP 02/07/17 05:45 02/07/17 05:45 Current Medications Generic Name Dose Route Start Last Admin Trade Name Donaldo PRN Reason Stop Dose Admin Atorvastatin Calcium 10 mg 02/05/17 22:00 02/06/17 22:37 Lipitor - PO 10 mg HS [facility] Administration Docusate Sodium 200 mg 02/05/17 10:00 02/07/17 09:08 Colace - PO 200 mg BID [facility] Administration Donepezil HCl 5 mg 02/05/17 22:00 02/06/17 22:37 Aricept - PO 5 mg HS [facility] Administration Heparin Sodium (Porcine) 5,000 unit 02/05/17 06:00 02/07/17 13:38 Heparin - SQ 5,000 unit TID [facility] Administration CEFTRIAXONE 1 G/50 ML PREMIX 50 mls @ 100 mls/hr 02/05/17 10:45 02/07/17 09: 08 Ceftriaxone 1 Gm-D5w Bag IVPB 100 mls/hr DAILY [facility] Administration Dextrose/Sodium Chloride 1,000 mls @ 100 mls/hr 02/05/17 10:15 02/07/17 11:10 D5-1/2ns - IV Not Given ASDIR [facility] Memantine 5 mg 02/05/17 10:00 02/07/17 09:08 Namenda - PO 5 mg BID [facility] Administration Metoprolol Tartrate 50 mg 02/05/17 10:00 02/07/17 09:08 Lopressor - PO 50 mg DAILY [facility] Administration Mirtazapine 15 mg 02/05/17 22:00 02/06/17 22:37 Remeron - PO 15 mg HS [facility] Administration Polyethylene Glycol 17 gm 02/05/17 10:00 02/07/17 09:09 Miralax (For Daily Use) - PO 17 grams BID [facility] Administration Senna 2 tab 02/05/17 10:00 02/07/17 09:08 Senna - PO 2 tab DAILY [facility] Administration Tamsulosin HCl 0.4 mg 02/05/17 08:30 02/07/17 09:08 Flomax - PO 0.4 mg DAILY@0830 [facility] Administration
[2017-02-07] MEDS: DONEPEZIL HCL 5 MG TABLET (FP) PO SCH (22:09)
[2017-02-07] MEDS: ATORVASTATIN CA 10 MG TABLET (FP) PO SCH (22:09)
[2017-02-07] MEDS: MIRTAZAPINE 15 MG TABLET (FP) PO SCH (22:09)
[2017-02-08] MEDS: HEPARIN NA (PORCINE) 5,000 UNITS/ML 1ML VIAL SQ SCH ×3 (06:24→22:17)
[2017-02-08 06:54] LABS: BASO % 0.3 % (0-2.0); EOS % 2.3 % (0-4.5); HEMATOCRIT 27.6 % (35.4-49); LYMPH % 14.1 % (8-40); MCH 27.6 pg (25.7-33.7); MCHC 32.7 g/dl (32.0-35.9); MEAN CELL VOLUME 84.6 fl (80-96); MEAN PLT VOLUME 7.8 fl (7.5-11.1); MONO % 6.1 % (3.8-10.2); NEUT % 77.2 % (42.8-82.8); PLATELET COUNT 242 K/MM3 (134-434); RBC 3.27 M/mm3 (4.00-5.60); RDW 15.1 % (11.9-15.9); WHITE BLOOD COUNT 6.2 K/mm3 (4.0-10.0)
[2017-02-08 07:25] LABS: CHLORIDE 112 mmol/L (98-107); POTASSIUM 3.7 mmol/L (3.5-5.1); SODIUM 145 mmol/L (136-145)
[2017-02-08 07:35] LABS: ALK PHOS 68 U/L (45-117); ANION GAP 9 (8-16); BILIRUBIN,TOTAL 0.6 mg/dL (0.2-1.0); BLOOD UREA NITROGEN 20 mg/dL (7-18); CALCIUM 7.9 mg/dL (8.5-10.1); CO2 24 mmol/L (21-32); GLUCOSE,RANDOM 92 mg/dL (74-106); SGOT/AST 27 U/L (15-37); SGPT/ALT 34 U/L (12-78); TOT PROT 5.5 g/dl (6.4-8.2)
[2017-02-08] MEDS ORDERED: PT OWN MED DRAWER 7, Y5N ONE (08:31)
[2017-02-08] MEDS: TAMSULOSIN HCL 0.4 MG CAP.ER.24H (FP) PO SCH (08:41)
[2017-02-08] MEDS: DOCUSATE SODIUM 100 MG CAPSULE (FP) PO SCH ×2 (09:25→22:16)
[2017-02-08] MEDS: METOPROLOL TARTRATE 50 MG TABLET (FP) PO SCH (09:25)
[2017-02-08] MEDS: SENNOSIDES 8.6MG TABLET (FP) PO SCH (09:25)
[2017-02-08] MEDS: CEFTRIAXONE 1 G/50 ML PREMIX 50 ML IVPB SCH (09:26)
[2017-02-08] MEDS: MEMANTINE HCL 5 MG TABLET (UD) PO SCH ×2 (09:26→22:16)
[2017-02-08] MEDS: POLYETHYLENE GLYCOL 3350 119 GM BTL PO SCH ×2 (09:33→22:17)
--- NOTE | 2017-02-08 11:03 | PN ---
Progress Note (short form) - Note Progress Note: patient seen and examined. Comfortable Sitting in the chair. No complaints Vital Signs Temp 97.4 F L 02/08/17 10:00 Pulse 68 02/08/17 10:00 Resp 20 02/08/17 10:00 BP 132/66 02/08/17 10:00 Pulse Ox 95 02/08/17 09:00 Intake & Output 02/07/17 02/07/17 02/08/17 11:59 23:59 11:59 Intake Total 820 800 Output Total 200 750 700 Balance 620 50 -700 Intake: IV 820 800 D5-1/2Ns - 1,000 ml @ 100 820 800 mls/hr IV ASDIR [facility] Rx#: [id number] Output: Urine 200 750 700 Davis 200 750 700 Other: Voiding Method Indwelling Catheter Indwelling Catheter Indwelling Catheter Bowel Movement Yes Active Medications Atorvastatin Calcium (Lipitor -) 10 mg PO HS [facility] Last Admin: 02/07/17 22:09 Dose: 10 mg Docusate Sodium (Colace -) 200 mg PO BID [facility] Last Admin: 02/08/17 09:25 Dose: 200 mg Donepezil HCl (Aricept -) 5 mg PO HS [facility] Last Admin: 02/07/17 22:09 Dose: 5 mg Heparin Sodium (Porcine) (Heparin -) 5,000 unit SQ TID [facility] Last Admin: 02/08/17 06:24 Dose: 5,000 unit CEFTRIAXONE 1 G/50 ML PREMIX (Ceftriaxone 1 Gm-D5w Bag) 50 mls @ 100 mls/hr IVPB DAILY [facility] Last Admin: 02/08/17 09:26 Dose: 100 mls/hr Dextrose/Sodium Chloride (D5-1/2ns -) 1,000 mls @ 100 mls/hr IV ASDIR [facility] Last Admin: 02/07/17 11:10 Dose: Not Given Memantine (Namenda -) 5 mg PO BID [facility] Last Admin: 02/08/17 09:26 Dose: 5 mg Metoprolol Tartrate (Lopressor -) 50 mg PO DAILY [facility] Last Admin: 02/08/17 09:25 Dose: 50 mg Mirtazapine (Remeron -) 15 mg PO HS [facility] Last Admin: 02/07/17 22:09 Dose: 15 mg Polyethylene Glycol (Miralax (For Daily Use) -) 17 gm PO BID [facility] Last Admin: 02/08/17 09:33 Dose: 17 grams Senna (Senna -) 2 tab PO DAILY [facility] Last Admin: 02/08/17 09:25 Dose: 2 tab Tamsulosin HCl (Flomax -) 0.4 mg PO DAILY@0830 [facility] Last Admin: 02/08/17 08:41 Dose: 0.4 mg CBC, BMP 02/08/17 06:40 02/08/17 06:40 sob - ve. Physical Exam. awake/ comfortable. lungs- clear cvs- s1, s2 rrr abd - soft/ non tender ext- no edema neuro- awake. not oriented. davis + ASSESSMENT/PLAN: clinically stable abx---discontinue in a.m. hemoglobin stable stool for occult blood negative hematology on case--for elevated ferritin urology consult pending discontinue IV fluids Discharge planning Family requesting to go to different [facility]. will follow Problem List - Problems (1) Dementia Code(s): F03.90 - UNSPECIFIED DEMENTIA WITHOUT BEHAVIORAL DISTURBANCE (2) Fall Code(s): W19.XXXA - UNSPECIFIED FALL, INITIAL ENCOUNTER Qualifiers: Encounter type: initial encounter Qualified Code(s): W19.XXXA - Unspecified fall, initial encounter (3) Syncope Code(s): R55 - SYNCOPE AND COLLAPSE Qualifiers: Syncope type: unspecified Qualified Code(s): R55 - Syncope and collapse (4) Diabetes mellitus Code(s): E11.9 - TYPE 2 DIABETES MELLITUS WITHOUT COMPLICATIONS (5) Urinary retention due to benign prostatic hyperplasia Code(s): N40.1 - BENIGN PROSTATIC HYPERPLASIA WITH LOWER URINARY TRACT SYMP; R33.8 - OTHER RETENTION OF URINE
[2017-02-08] MEDS: DEXTROSE 5%-0.45% SALINE 1,000 ML IV SCH (11:56)
[2017-02-08] MEDS: ATORVASTATIN CA 10 MG TABLET (FP) PO SCH (22:16)
[2017-02-08] MEDS: MIRTAZAPINE 15 MG TABLET (FP) PO SCH (22:16)
[2017-02-08] MEDS: DONEPEZIL HCL 5 MG TABLET (FP) PO SCH (22:17)
[2017-02-09] MEDS: HEPARIN NA (PORCINE) 5,000 UNITS/ML 1ML VIAL SQ SCH ×3 (06:33→21:44)
[2017-02-09] MEDS: TAMSULOSIN HCL 0.4 MG CAP.ER.24H (FP) PO SCH (09:50)
--- NOTE | 2017-02-09 09:58 | PN ---
Progress Note, Physician Chief Complaint: Pt responds to verbal quiries; denies chest pain or SOB History of Present Illness: The patient is an 86 year old male with a history of dementia, UTI, BBH, CVA, HTN, Anemia who presents from [facility] for evaluation following a syncopal episode. The patient is a poor historian and the [facility] was contacted for the history. The patient had a ureteral stent placed on . They report that the patient had an unwitnessed fall earlier today at 3am. They report that the patient then had a syncopal episode after an hour of PT prompting his presentation to the ED today. It is unclear if the patient experienced any head trauma. The patient denies any complaints at this time besides some mild generalized weakness and does not recall the event. He denies fevers, chills, headache, SOB, chest pain, abdominal pain. - Current Medication List Current Medications: Active Medications Atorvastatin Calcium (Lipitor -) 10 mg PO HS [facility] Last Admin: 02/08/17 22:16 Dose: 10 mg Docusate Sodium (Colace -) 200 mg PO BID [facility] Last Admin: 02/08/17 22:16 Dose: 200 mg Donepezil HCl (Aricept -) 5 mg PO HS [facility] Last Admin: 02/08/17 22:17 Dose: 5 mg Heparin Sodium (Porcine) (Heparin -) 5,000 unit SQ TID [facility] Last Admin: 02/09/17 06:33 Dose: 5,000 unit CEFTRIAXONE 1 G/50 ML PREMIX (Ceftriaxone 1 Gm-D5w Bag) 50 mls @ 100 mls/hr IVPB DAILY [facility] Last Admin: 02/08/17 09:26 Dose: 100 mls/hr Memantine (Namenda -) 5 mg PO BID [facility] Last Admin: 02/08/17 22:16 Dose: 5 mg Metoprolol Tartrate (Lopressor -) 50 mg PO DAILY [facility] Last Admin: 02/08/17 09:25 Dose: 50 mg Mirtazapine (Remeron -) 15 mg PO HS [facility] Last Admin: 02/08/17 22:16 Dose: 15 mg Polyethylene Glycol (Miralax (For Daily Use) -) 17 gm PO BID [facility] Last Admin: 02/08/17 22:17 Dose: 17 grams Senna (Senna -) 2 tab PO DAILY [facility] Last Admin: 02/08/17 09:25 Dose: 2 tab Tamsulosin HCl (Flomax -) 0.4 mg PO DAILY@0830 [facility] Last Admin: 02/09/17 09:50 Dose: 0.4 mg - Objective Vital Signs: Vital Signs Temperature 98.1 F 02/09/17 06:00 Pulse Rate 105 H 02/09/17 06:00 Respiratory Rate 18 02/09/17 06:00 Blood Pressure 124/93 02/09/17 06:00 O2 Sat by Pulse Oximetry (%) 96 02/08/17 21:00 Constitutional: Yes: Calm Eyes: Yes: WNL HENT: Yes: WNL Neck: Yes: WNL Cardiovascular: Yes: Pulse Irregular Respiratory: Yes: Regular Gastrointestinal: Yes: Soft Genitourinary: No: Anuria Musculoskeletal: Yes: Back Pain Extremities: Yes: Cool Edema: No Peripheral Pulses WNL: No Peripheral Pulses: Left Doralis Pedis: 1+, Right Dorsalis Pedis: 1+ Neurological: Yes: Weakness Psychiatric: Yes: Other Labs: CBC, BMP 02/08/17 06:40 02/08/17 06:40 Problem List - Problems (1) Dementia Code(s): F03.90 - UNSPECIFIED DEMENTIA WITHOUT BEHAVIORAL DISTURBANCE (2) Anemia Code(s): D64.9 - ANEMIA, UNSPECIFIED (3) Fall Code(s): W19.XXXA - UNSPECIFIED FALL, INITIAL ENCOUNTER Qualifiers: Encounter type: initial encounter Qualified Code(s): W19.XXXA - Unspecified fall, initial encounter (4) Syncope Assessment/Plan: orthostatic VS Normal LVEF on ECHo; no significant . Maintain hydration. Code(s): R55 - SYNCOPE AND COLLAPSE Qualifiers: Syncope type: unspecified Qualified Code(s): R55 - Syncope and collapse (5) Diabetes mellitus Code(s): E11.9 - TYPE 2 DIABETES MELLITUS WITHOUT COMPLICATIONS
[2017-02-09] MEDS: DOCUSATE SODIUM 100 MG CAPSULE (FP) PO SCH ×2 (10:15→21:44)
[2017-02-09] MEDS: METOPROLOL TARTRATE 50 MG TABLET (FP) PO SCH (10:15)
[2017-02-09] MEDS: SENNOSIDES 8.6MG TABLET (FP) PO SCH (10:16)
[2017-02-09] MEDS: POLYETHYLENE GLYCOL 3350 119 GM BTL PO SCH ×2 (10:16→22:14)
[2017-02-09] MEDS: MEMANTINE HCL 5 MG TABLET (UD) PO SCH ×2 (10:17→21:44)
[2017-02-09] MEDS: CEFTRIAXONE 1 G/50 ML PREMIX 50 ML IVPB SCH (10:17)
--- NOTE | 2017-02-09 11:19 | PN ---
Progress Note (short form) - Note Progress Note: comfortable no distress poor historian periods of agitation Vital Signs Temp 98.1 F 02/09/17 06:00 Pulse 105 H 02/09/17 06:00 Resp 18 02/09/17 06:00 BP 124/93 02/09/17 06:00 Pulse Ox 96 02/08/17 21:00 Intake & Output 02/08/17 02/08/17 02/09/17 11:59 23:59 11:59 Intake Total 308 820 Output Total 700 1200 500 Balance -700 -892 320 Intake: IV 700 D5-1/2Ns - 1,000 ml @ 100 700 mls/hr IV ASDIR [facility] Rx#: [id number] IVPB 100 Oral 208 120 Output: Urine 700 1200 500 Davis 700 1200 500 Other: Voiding Method Indwelling Catheter External Catheter Indwelling Catheter Bowel Movement Yes Yes Active Medications Alprazolam (Xanax -) 0.25 mg PO Q8H PRN PRN Reason: ANXIETY Atorvastatin Calcium (Lipitor -) 10 mg PO [facility] Last Admin: 02/08/17 22:16 Dose: 10 mg Docusate Sodium (Colace -) 200 mg PO BID [facility] Last Admin: 02/09/17 10:15 Dose: Not Given Donepezil HCl (Aricept -) 5 mg PO [facility] Last Admin: 02/08/17 22:17 Dose: 5 mg Heparin Sodium (Porcine) (Heparin -) 5,000 unit SQ TID [facility] Last Admin: 02/09/17 06:33 Dose: 5,000 unit Memantine (Namenda -) 5 mg PO BID [facility] Last Admin: 02/09/17 10:17 Dose: 5 mg Metoprolol Tartrate (Lopressor -) 50 mg PO DAILY [facility] Last Admin: 02/09/17 10:15 Dose: 50 mg Mirtazapine (Remeron -) 15 mg PO [facility] Last Admin: 02/08/17 22:16 Dose: 15 mg Polyethylene Glycol (Miralax (For Daily Use) -) 17 gm PO BID [facility] Last Admin: 02/09/17 10:16 Dose: Not Given Senna (Senna -) 2 tab PO DAILY [facility] Last Admin: 02/09/17 10:16 Dose: Not Given Tamsulosin HCl (Flomax -) 0.4 mg PO DAILY@0830 [facility] Last Admin: 02/09/17 09:50 Dose: 0.4 mg CBC, BMP 02/08/17 06:40 02/08/17 06:40 Microbiology 02/04/17 20:30 Blood Culture - Preliminary Blood - Peripheral Venous NO GROWTH OBTAINED AFTER 96 HOURS, INCUBATION TO CONTINUE FOR 1 DAYS. 02/04/17 20:30 Blood Culture - Preliminary Blood - Peripheral Venous NO GROWTH OBTAINED AFTER 96 HOURS, INCUBATION TO CONTINUE FOR 1 DAYS. Physical Exam. awake/ comfortable. lungs- clear cvs- s1, s2 rrr abd - soft/ non tender ext- no edema neuro- awake. not oriented. davis + ASSESSMENT/PLAN: clinically stable d/c abx--- hemoglobin stable stool for occult blood negative hematology on case--for elevated ferritin urology consult pending Discharge planning Family requesting to go to different [facility] anticipate d/c tomorrow will follow Problem List - Problems (1) Dementia Code(s): F03.90 - UNSPECIFIED DEMENTIA WITHOUT BEHAVIORAL DISTURBANCE (2) Fall Code(s): W19.XXXA - UNSPECIFIED FALL, INITIAL ENCOUNTER Qualifiers: Encounter type: initial encounter Qualified Code(s): W19.XXXA - Unspecified fall, initial encounter (3) Syncope Code(s): R55 - SYNCOPE AND COLLAPSE Qualifiers: Syncope type: unspecified Qualified Code(s): R55 - Syncope and collapse (4) Diabetes mellitus Code(s): E11.9 - TYPE 2 DIABETES MELLITUS WITHOUT COMPLICATIONS (5) Urinary retention due to benign prostatic hyperplasia Code(s): N40.1 - BENIGN PROSTATIC HYPERPLASIA WITH LOWER URINARY TRACT SYMP; R33.8 - OTHER RETENTION OF URINE
[2017-02-09] MEDS: ALPRAZolam 0.25 MG TABLET PO PRN ×2 (11:43→21:44)
--- NOTE | 2017-02-09 16:18 | PN ---
Progress Note, Physician History of Present Illness: The patient is an 86 year old male with a history of dementia, UTI, BBH, CVA, HTN, Anemia who presents from [facility] for evaluation following a syncopal episode. The patient is a poor historian and the long-term was contacted for the history. The patient had a ureteral stent placed on . They report that the patient had an unwitnessed fall earlier today at 3am. They report that the patient then had a syncopal episode after an hour of PT prompting his presentation to the ED today. It is unclear if the patient experienced any head trauma. The patient denies any complaints at this time besides some mild generalized weakness and does not recall the event. He denies fevers, chills, headache, SOB, chest pain, abdominal pain. - Current Medication List Current Medications: Active Medications Alprazolam (Xanax -) 0.25 mg PO Q8H PRN PRN Reason: ANXIETY Last Admin: 02/09/17 11:43 Dose: 0.25 mg Atorvastatin Calcium (Lipitor -) 10 mg PO HS [facility] Last Admin: 02/08/17 22:16 Dose: 10 mg Docusate Sodium (Colace -) 200 mg PO BID [facility] Last Admin: 02/09/17 10:15 Dose: Not Given Donepezil HCl (Aricept -) 5 mg PO HS [facility] Last Admin: 02/08/17 22:17 Dose: 5 mg Heparin Sodium (Porcine) (Heparin -) 5,000 unit SQ TID [facility] Last Admin: 02/09/17 06:33 Dose: 5,000 unit Memantine (Namenda -) 5 mg PO BID [facility] Last Admin: 02/09/17 10:17 Dose: 5 mg Metoprolol Tartrate (Lopressor -) 50 mg PO DAILY [facility] Last Admin: 02/09/17 10:15 Dose: 50 mg Mirtazapine (Remeron -) 15 mg PO HS [facility] Last Admin: 02/08/17 22:16 Dose: 15 mg Polyethylene Glycol (Miralax (For Daily Use) -) 17 gm PO BID [facility] Last Admin: 02/09/17 10:16 Dose: Not Given Senna (Senna -) 2 tab PO DAILY [facility] Last Admin: 02/09/17 10:16 Dose: Not Given Tamsulosin HCl (Flomax -) 0.4 mg PO DAILY@0830 [facility] Last Admin: 02/09/17 09:50 Dose: 0.4 mg - Objective Vital Signs: Vital Signs Temperature 99.7 F H 02/09/17 14:06 Pulse Rate 83 02/09/17 14:06 Respiratory Rate 22 02/09/17 14:06 Blood Pressure 143/72 02/09/17 14:06 O2 Sat by Pulse Oximetry (%) 94 L 02/09/17 09:00 Eyes: Yes: WNL, Conjunctiva Clear, EOM Intact HENT: Yes: WNL, Atraumatic, Normocephalic Neck: Yes: WNL, Supple, Trachea Midline Cardiovascular: Yes: WNL, Regular Rate and Rhythm Respiratory: Yes: WNL, Regular, CTA Bilaterally Gastrointestinal: Yes: WNL, Normal Bowel Sounds Genitourinary: Yes: WNL Musculoskeletal: Yes: WNL Extremities: Yes: WNL Edema: No Integumentary: Yes: WNL ...Motor Strength: WNL Psychiatric: Yes: WNL Labs: CBC, BMP 02/08/17 06:40 02/08/17 06:40 Assessment/Plan - Problems (1) Dementia Code(s): F03.90 - UNSPECIFIED DEMENTIA WITHOUT BEHAVIORAL DISTURBANCE (2) Anemia Code(s): D64.9 - ANEMIA, UNSPECIFIED (3) Fall Code(s): W19.XXXA - UNSPECIFIED FALL, INITIAL ENCOUNTER Qualifiers: Encounter type: initial encounter Qualified Code(s): W19.XXXA - Unspecified fall, initial encounter (4) Syncope Assessment/Plan: orthostatic VS Normal LVEF on ECHo; no significant . Maintain hydration. Code(s): R55 - SYNCOPE AND COLLAPSE Qualifiers: Syncope type: unspecified Qualified Code(s): R55 - Syncope and collapse (5) Diabetes mellitus Code(s): E11.9 - TYPE 2 DIABETES MELLITUS WITHOUT COMPLICATIONS
[2017-02-09] MEDS: ATORVASTATIN CA 10 MG TABLET (FP) PO SCH (21:44)
[2017-02-09] MEDS: MIRTAZAPINE 15 MG TABLET (FP) PO SCH (21:44)
[2017-02-09] MEDS: DONEPEZIL HCL 5 MG TABLET (FP) PO SCH (21:44)
[2017-02-10 00:06] LABS: FREE KAPPA,SERUM 91.5 mg/L (3.3-19.4)
[2017-02-10] MEDS: HEPARIN NA (PORCINE) 5,000 UNITS/ML 1ML VIAL SQ SCH ×3 (05:13→21:55)
[2017-02-10] MEDS: TAMSULOSIN HCL 0.4 MG CAP.ER.24H (FP) PO SCH (08:20)
[2017-02-10] MEDS: ALPRAZolam 0.25 MG TABLET PO PRN (08:20)
--- NOTE | 2017-02-10 08:27 | CONSULT ---
Consult Consult Specialty:: urology Referred by:: Venkatesh Reason for Consultation:: bph - History of Present Illness Chief Complaint: urinary retention History of Present Illness: Patient is s/p left ureteral stone laser lithotripsy with stone basketing and stent. Patient is a poor historian. Patient had the davis catheter removed. Patient has voided. Patient is comfortable. - History Source History Provided By: Medical Record, Caregiver Limitations to Obtaining History: Dementia - Past Medical History Cardio/Vascular: Yes: HTN Endocrine: Yes: Diabetes Mellitus (NIIDM) - Alcohol/Substance Use Hx Alcohol Use: No - Smoking History Smoking history: Never smoked Have you smoked in the past 12 months: No Home Medications - Allergies Allergies/Adverse Reactions: Allergies Allergy/AdvReac Type Severity Reaction Status Date / Time No Known Allergies Allergy Verified 02/04/17 12:22 - Home Medications Home Medications: Ambulatory Orders Metoprolol Tartrate [Lopressor -] 50 mg PO DAILY 09/05/12 Memantine HCl [Namenda -] 5 mg PO BID #30 tab 12/13/16 Acetaminophen [Tylenol] 650 mg PO Q6H PRN 12/16/16 Tamsulosin HCl [Flomax] 0.4 mg PO DAILY 12/16/16 Atorvastatin Ca [Lipitor] 10 mg PO HS 12/20/16 Donepezil HCl [Aricept -] 5 mg PO DAILY 12/20/16 Mirtazapine [Remeron -] 15 mg PO HS 12/20/16 Bacitracin - [Bacitracin Topical Ointment -] 1 applic TP BID 02/04/17 Docusate Sodium [Colace -] 200 mg PO BID 02/04/17 Levofloxacin [Levaquin -] 500 mg PO DAILY 02/04/17 Polyethylene Glycol 3350 [Miralax (For Daily Use) -] 17 gm PO BID 02/04/17 Sennosides [Senna] 2 tab PO DAILY 02/04/17 Physical Exam Vital Signs: Vital Signs Temperature 98.4 F 02/10/17 06:00 Pulse Rate 92 H 02/10/17 06:00 Respiratory Rate 18 02/10/17 06:00 Blood Pressure 151/90 02/10/17 06:00 O2 Sat by Pulse Oximetry (%) 95 02/09/17 22:00 Constitutional: Yes: Calm Eyes: Yes: WNL HENT: Yes: WNL Neck: Yes: WNL Gastrointestinal: Yes: Normal Bowel Sounds, Soft Renal/: Yes: WNL (bladder not palpable) Labs: CBC, BMP 02/08/17 06:40 02/08/17 06:40 Assessment/Plan imp bph s/p left stent s/p laser lithotripsy plan continue with flomax will follow-up as outpatient
[2017-02-10] MEDS: SENNOSIDES 8.6MG TABLET (FP) PO SCH (09:05)
[2017-02-10] MEDS: DOCUSATE SODIUM 100 MG CAPSULE (FP) PO SCH ×2 (09:05→21:54)
[2017-02-10] MEDS: MEMANTINE HCL 5 MG TABLET (UD) PO SCH ×2 (09:05→21:55)
[2017-02-10] MEDS: METOPROLOL TARTRATE 50 MG TABLET (FP) PO SCH (09:05)
--- NOTE | 2017-02-10 10:48 | DS ---
Physical Examination Vital Signs: Vital Signs Temperature 97.8 F 02/10/17 10:00 Pulse Rate 90 02/10/17 10:00 Respiratory Rate 18 02/10/17 10:00 Blood Pressure 146/88 02/10/17 10:00 O2 Sat by Pulse Oximetry (%) 95 02/09/17 22:00 Findings/Remarks: pt sitting in chair comfortable poor historian davis removed passing urine off abx Constitutional: Yes: No Distress, Calm Neck: Yes: Supple Cardiovascular: Yes: Regular Rate and Rhythm Respiratory: Yes: CTA Bilaterally Gastrointestinal: Yes: Soft Edema: No Neurological: No: Alert (not oriented) Labs: CBC, BMP 02/08/17 06:40 02/08/17 06:40 Discharge Summary Reason For Visit: SYNCOPE,FALL Current Active Problems Anemia (Acute) Dementia (Acute) Fall (Acute) Syncope (Acute) Hospital Course: 86M w/ hx of dementia, UTI, BPH, nephrolithiasis s/p recent ureteral stent (), DM, CVA, BPH, HTN, anemia, and HLD presenting from [facility] after syncopal episode. admitted to tele cardiology followed work up +ve for uti- treated with uti davis removed pt also anemic guaic -ve gi work up as out pt if needed per his pmd decubitus care now stable for d/c family request different usp discussed with nursing staff/ pillowcase cutter meds reconcilled need urology f/u as out pt with Dr. Mike Zimmerman d/c time 35 min in examining/ documenting and coordinate care Condition: Stable - Instructions Referrals: Sean Riddle MD [Primary Care Provider] - Disposition: CARE HOME FACILITY - Home Medications Comprehensive Discharge Medication List: Ambulatory Orders Metoprolol Tartrate [Lopressor -] 50 mg PO DAILY 09/05/12 Memantine HCl [Namenda -] 5 mg PO BID #30 tab 12/13/16 Acetaminophen [Tylenol] 650 mg PO Q6H PRN 12/16/16 Tamsulosin HCl [Flomax] 0.4 mg PO DAILY 12/16/16 Atorvastatin Ca [Lipitor] 10 mg PO HS 12/20/16 Donepezil HCl [Aricept -] 5 mg PO DAILY 12/20/16 Mirtazapine [Remeron -] 15 mg PO HS 12/20/16 Bacitracin - [Bacitracin Topical Ointment -] 1 applic TP BID 02/04/17 Docusate Sodium [Colace -] 200 mg PO BID 02/04/17 Polyethylene Glycol 3350 [Miralax 119 gm Btl -] 17 gm PO BID 02/04/17 Sennosides [Senna -] 2 tab PO DAILY 02/04/17 Alprazolam [Xanax] 0.25 mg PO Q8H PRN #30 tablet MDD 3 02/10/17 Heparin - 5,000 unit SQ TID vial 02/10/17
[2017-02-10] MEDS: POLYETHYLENE GLYCOL 3350 119 GM BTL PO SCH ×3 (11:29→22:20)
[2017-02-10] MEDS: CLOTRIMAZOLE 1% CREAM 15 GM TUBE TP SCH ×2 (13:54→21:55)
[2017-02-10] MEDS ORDERED: PT OWN MED DRAWER 7, Y5N ONE (20:54)
[2017-02-10] MEDS: ATORVASTATIN CA 10 MG TABLET (FP) PO SCH (21:55)
[2017-02-10] MEDS: MIRTAZAPINE 15 MG TABLET (FP) PO SCH (21:55)
[2017-02-10] MEDS: DONEPEZIL HCL 5 MG TABLET (FP) PO SCH (21:55)
[2017-02-11 00:06] LABS: ALPHA-1-GLOBULINS 0.3 g/dL (0.0-0.4); ALPHA-2-GLOBULINS 0.9 g/dL (0.4-1.0); BETA GLOBULINS 0.5 g/dL (0.7-1.3); GAMMA GLOBULINS 1.4 g/dL (0.4-1.8)
[2017-02-11] MEDS: HEPARIN NA (PORCINE) 5,000 UNITS/ML 1ML VIAL SQ SCH ×2 (07:03→15:00)
--- NOTE | 2017-02-11 10:17 | PN ---
Progress Note (short form) - Note Progress Note: patient seen and examined comfortable No new issues Short-term rehabilitation has been denied--- by insurance Recommended to go home with VNS Vital Signs Temp 97.9 F 02/11/17 05:56 Pulse 95 H 02/11/17 05:56 Resp 20 02/11/17 05:56 BP 107/66 02/11/17 05:56 Pulse Ox 95 02/10/17 21:00 Intake & Output 02/10/17 02/10/17 02/11/17 11:59 23:59 11:59 Intake Total 330 400 100 Balance 330 400 100 Intake: Oral 330 400 100 Other: Voiding Method Diaper Diaper Diaper # Unmeasured Voids Singh 2 2 1 Bowel Movement No Yes Yes # Bowel Movements 1 2 Active Medications Alprazolam (Xanax -) 0.25 mg PO Q8H PRN PRN Reason: ANXIETY Last Admin: 02/10/17 08:20 Dose: 0.25 mg Atorvastatin Calcium (Lipitor -) 10 mg PO [facility] Last Admin: 02/10/17 21:55 Dose: 10 mg Clotrimazole (Lotrimin 1% Cream -) 1 applic TP BID [facility] Last Admin: 02/10/17 21:55 Dose: 1 applic Docusate Sodium (Colace -) 200 mg PO BID [facility] Last Admin: 02/10/17 21:54 Dose: 200 mg Donepezil HCl (Aricept -) 5 mg PO [facility] Last Admin: 02/10/17 21:55 Dose: 5 mg Heparin Sodium (Porcine) (Heparin -) 5,000 unit SQ TID [facility] Last Admin: 02/11/17 07:03 Dose: 5,000 unit Memantine (Namenda -) 5 mg PO BID [facility] Last Admin: 02/10/17 21:55 Dose: 5 mg Metoprolol Tartrate (Lopressor -) 50 mg PO DAILY [facility] Last Admin: 02/10/17 09:05 Dose: 50 mg Mirtazapine (Remeron -) 15 mg PO HS [facility] Last Admin: 02/10/17 21:55 Dose: 15 mg Polyethylene Glycol (Miralax (For Daily Use) -) 17 gm PO BID [facility] Last Admin: 02/10/17 22:20 Dose: Not Given Senna (Senna -) 2 tab PO DAILY [facility] Last Admin: 02/10/17 09:05 Dose: 2 tab Tamsulosin HCl (Flomax -) 0.4 mg PO DAILY@0830 [facility] Last Admin: 02/10/17 08:20 Dose: 0.4 mg CBC, BMP 02/08/17 06:40 02/08/17 06:40 Physical Exam. awake/ comfortable. lungs- clear cvs- s1, s2 rrr abd - soft/ non tender ext- no edema neuro- awake. not oriented. ASSESSMENT/PLAN: clinically stable discussed with manager case management Will do pier to pier-- if patient can get short-term rehabilitation--- then better Problem List - Problems (1) Dementia Code(s): F03.90 - UNSPECIFIED DEMENTIA WITHOUT BEHAVIORAL DISTURBANCE (2) Fall Code(s): W19.XXXA - UNSPECIFIED FALL, INITIAL ENCOUNTER Qualifiers: Encounter type: initial encounter Qualified Code(s): W19.XXXA - Unspecified fall, initial encounter (3) Syncope Code(s): R55 - SYNCOPE AND COLLAPSE Qualifiers: Syncope type: unspecified Qualified Code(s): R55 - Syncope and collapse (4) Diabetes mellitus Code(s): E11.9 - TYPE 2 DIABETES MELLITUS WITHOUT COMPLICATIONS (5) Urinary retention due to benign prostatic hyperplasia Code(s): N40.1 - BENIGN PROSTATIC HYPERPLASIA WITH LOWER URINARY TRACT SYMP; R33.8 - OTHER RETENTION OF URINE
[2017-02-11] MEDS ORDERED: PT OWN MED DRAWER 7, Y5N ONE ×2 (11:00→19:28)
[2017-02-11] MEDS: METOPROLOL TARTRATE 50 MG TABLET (FP) PO SCH (11:01)
[2017-02-11] MEDS: MEMANTINE HCL 5 MG TABLET (UD) PO SCH ×2 (11:01→22:50)
[2017-02-11] MEDS: TAMSULOSIN HCL 0.4 MG CAP.ER.24H (FP) PO SCH (11:01)
[2017-02-11] MEDS: POLYETHYLENE GLYCOL 3350 119 GM BTL PO SCH ×2 (11:14→23:31)
[2017-02-11] MEDS: SENNOSIDES 8.6MG TABLET (FP) PO SCH (11:14)
[2017-02-11] MEDS: DOCUSATE SODIUM 100 MG CAPSULE (FP) PO SCH ×2 (11:14→23:31)
--- NOTE | 2017-02-11 13:07 | PN ---
Progress Note (short form) - Note Progress Note: seen and examined ROS unobtainable. but says he is "good" O/E: Eyes: Yes: WNL, Conjunctiva Clear, EOM Intact HENT: Yes: WNL, Atraumatic, Normocephalic Neck: Yes: WNL, Supple, Trachea Midline Cardiovascular: Yes: WNL, Regular Rate and Rhythm Respiratory: Yes: WNL, Regular, CTA Bilaterally Gastrointestinal: Yes: WNL, Normal Bowel Sounds Genitourinary: Yes: WNL Musculoskeletal: Yes: WNL Extremities: Yes: WNL Last Vital Signs Temp Pulse Resp BP Pulse Ox 99.1 F 103 H 30 H 123/73 95 02/11/17 10:57 02/11/17 10:57 02/11/17 10:57 02/11/17 10:57 02/10/17 21:00 CBC, BMP 02/08/17 06:40 02/08/17 06:40 Current Medications Generic Name Dose Route Start Last Admin Trade Name Freq PRN Reason Stop Dose Admin Alprazolam 0.25 mg 02/09/17 11:17 02/10/17 08:20 Xanax - PO 0.25 mg Q8H PRN Administration ANXIETY Atorvastatin Calcium 10 mg 02/05/17 22:00 02/10/17 21:55 Lipitor - PO 10 mg HS [facility] Administration Clotrimazole 1 applic 02/10/17 22:00 02/10/17 21:55 Lotrimin 1% Cream - TP 1 applic BID [facility] Administration Docusate Sodium 200 mg 02/05/17 10:00 02/11/17 11:14 Colace - PO Not Given BID [facility] Donepezil HCl 5 mg 02/05/17 22:00 02/10/17 21:55 Aricept - PO 5 mg HS [facility] Administration Heparin Sodium (Porcine) 5,000 unit 02/05/17 06:00 02/11/17 07:03 Heparin - SQ 5,000 unit TID [facility] Administration Memantine 5 mg 02/05/17 10:00 02/11/17 11:01 Namenda - PO 5 mg BID [facility] Administration Metoprolol Tartrate 50 mg 02/05/17 10:00 02/11/17 11:01 Lopressor - PO 50 mg DAILY [facility] Administration Mirtazapine 15 mg 02/05/17 22:00 02/10/17 21:55 Remeron - PO 15 mg HS [facility] Administration Polyethylene Glycol 17 gm 02/05/17 10:00 02/11/17 11:14 Miralax (For Daily Use) - PO Not Given BID [facility] Senna 2 tab 02/05/17 10:00 02/11/17 11:14 Senna - PO Not Given DAILY [facility] Tamsulosin HCl 0.4 mg 02/05/17 08:30 02/11/17 11:01 Flomax - PO 0.4 mg DAILY@0830 [facility] Administration Elderly male, [place] resident, dementia, presnents with syncopal epsiode, likely attributable to URI (Pseudomonas in urine) and dehydration. ferritin getting better will need to repeat again post discharge SPEP reviewed, ration wnl and also no M spike reported monitor Vitals
[2017-02-11] MEDS: CLOTRIMAZOLE 1% CREAM 15 GM TUBE TP SCH ×2 (15:50→23:32)
--- NOTE | 2017-02-11 22:10 | HOSP ---
Subjective - Review of Symptoms Events since last encounter: nurse called to report pt noted hypoxic on routine vital signs. C/o chest pain earlier but then denied it. Nurse reports pt is a poor historian. Subjective: pt denies any SOB, respiratory distress or chest pain on exam. Physical Examination Vital Signs: Vital Signs Temperature 97.6 F 02/11/17 18:00 Pulse Rate 89 02/11/17 18:00 Respiratory Rate 22 02/11/17 18:00 Blood Pressure 109/65 02/11/17 18:00 O2 Sat by Pulse Oximetry (%) 95 02/11/17 11:00 pulse oximetry 90% on 3LNC Pulse 96 RR 24 BP 93/49 Constitutional: Yes: Cachectic, Other (lethargic, arousable with tactile stimuli ) Eyes: Yes: Conjunctiva Clear (PALE) Cardiovascular: Yes: Regular Rate and Rhythm Respiratory: Yes: CTA Bilaterally, Tachypnea, Other (diminished bilat bases). No: Accessory Muscle Use Gastrointestinal: Yes: Normal Bowel Sounds, Soft Labs: CBC, BMP 02/08/17 06:40 02/08/17 06:40 Hospitalist Encounter Assessment: hypoxia - unclear etiology, no history of respiratory issues noted upon chart review - CBC,BMP stat, ABG stat, CXR and ECG stat - pt does not appear to be in acute distress. - oxygen @4LNC
[2017-02-11 22:28] LABS: ARTERIAL BLD GAS O2 SATURATION 91.3 % (90-98.9); ARTERIAL BLOOD GAS BASE EXCESS 0.5 meq/l (-2-2); ARTERIAL BLOOD GAS PO2 57.6 mmHg (68-100); ARTERIAL BLOOD GAS pH 7.51 (7.35-7.45)
[2017-02-11] MEDS: ATORVASTATIN CA 10 MG TABLET (FP) PO SCH (22:50)
[2017-02-11] MEDS: DONEPEZIL HCL 5 MG TABLET (FP) PO SCH (22:50)
[2017-02-11] MEDS: MIRTAZAPINE 15 MG TABLET (FP) PO SCH (22:50)
[2017-02-11 23:29] LABS: BASO % 0.1 % (0-2.0); HEMATOCRIT 22.3 % (35.4-49); MCH 26.4 pg (25.7-33.7); MCHC 31.2 g/dl (32.0-35.9); MEAN CELL VOLUME 84.8 fl (80-96); MEAN PLT VOLUME 8.2 fl (7.5-11.1); NEUT % 87.9 % (42.8-82.8); PLATELET COUNT 360 K/MM3 (134-434); RBC 2.63 M/mm3 (4.00-5.60); RDW 15.5 % (11.9-15.9); WHITE BLOOD COUNT 12.6 K/mm3 (4.0-10.0)
[2017-02-11 23:50] LABS: ANION GAP 10 (8-16); BLOOD UREA NITROGEN 76 mg/dL (7-18); CALCIUM 8.6 mg/dL (8.5-10.1); CHLORIDE 122 mmol/L (98-107); CO2 24 mmol/L (21-32); CREATININE 2.4 mg/dL (0.7-1.3); GLUCOSE,RANDOM 130 mg/dL (74-106); POTASSIUM 3.9 mmol/L (3.5-5.1); SODIUM 156 mmol/L (136-145)
[2017-02-12] MEDS ORDERED: SODIUM CHLORIDE 250 ML IV STA (00:19)
[2017-02-12] MEDS: SODIUM CHLORIDE 0.45% 1,000 ML IV SCH ×2 (01:48→12:06)
[2017-02-12] MEDS: TAMSULOSIN HCL 0.4 MG CAP.ER.24H (FP) PO SCH (09:00)
[2017-02-12 09:13] LABS: BASO % 0.2 % (0-2.0); HEMATOCRIT 20.7 % (35.4-49); MCH 26.7 pg (25.7-33.7); MCHC 31.3 g/dl (32.0-35.9); MEAN CELL VOLUME 85.2 fl (80-96); MONO % 3.6 % (3.8-10.2); NEUT % 83.2 % (42.8-82.8); PLATELET COUNT 341 K/MM3 (134-434); RBC 2.43 M/mm3 (4.00-5.60); RDW 15.7 % (11.9-15.9); WHITE BLOOD COUNT 12.8 K/mm3 (4.0-10.0)
[2017-02-12 09:15] LABS: HEMOGLOBIN 6.5 GM/dL (11.7-16.9)
[2017-02-12 09:20] LABS: ANION GAP 9 (8-16); BLOOD UREA NITROGEN 85 mg/dL (7-18); CALCIUM 8.3 mg/dL (8.5-10.1); CHLORIDE 124 mmol/L (98-107); CO2 25 mmol/L (21-32); CREATININE 2.2 mg/dL (0.7-1.3); GLUCOSE,RANDOM 139 mg/dL (74-106); POTASSIUM 3.9 mmol/L (3.5-5.1); SODIUM 158 mmol/L (136-145)
--- NOTE | 2017-02-12 10:58 | EKG ---
Test Reason : Blood Pressure : / mmHG Vent. Rate : 091 BPM Atrial Rate : 091 BPM P-R Int : 164 ms QRS Dur : 076 ms QT Int : 300 ms P-R-T Axes : 020 -17 235 degrees QTc Int : 369 ms SINUS RHYTHM WITH PREMATURE ATRIAL COMPLEXES ABNORMAL ECG WHEN COMPARED WITH ECG OF 04-FEB-2017 13:42, PREMATURE ATRIAL COMPLEXES ARE NOW PRESENT ST NOW DEPRESSED IN ANTEROLATERAL LEADS T WAVE INVERSION NOW EVIDENT IN INFERIOR LEADS T WAVE INVERSION NOW EVIDENT IN ANTERIOR LEADS QT HAS SHORTENED CLINICAL CORRELATION IS RECOMMENDED Confirmed by WOJCIECH OCAMPO, CAYDEN ([id number]) on 02/12/2017 10:58:23 AM Referred By: Confirmed By:CAYDEN JEFFREY MD
--- NOTE | 2017-02-12 11:20 | PN ---
Progress Note (short form) - Note Progress Note: pt seen/ examined events noted weak today soft/ dark stool today guiac +ve heparin d/aidee also in acute renal failure started on i/v fluids Vital Signs Temp 97.8 F 02/12/17 06:00 Pulse 82 02/12/17 06:00 Resp 22 02/12/17 06:00 BP 123/77 02/12/17 06:00 Pulse Ox 98 02/11/17 21:00 Intake & Output 02/11/17 02/11/17 02/12/17 11:59 23:59 11:59 Intake Total 300 110 975 Balance 300 110 975 Intake: IV 875 1/2 Normal Saline 1,000 625 ml @ 125 mls/hr IV ASDIR [facility] Rx#:[id number] Normal Saline - 250 ml @ 250 500 mls/hr IV ASDIR STA Rx#:[id number] Oral 300 110 100 Other: Voiding Method Diaper Diaper # Unmeasured Voids Singh 1 2 1 Bowel Movement Yes Yes: watery # Bowel Movements 2 3 Active Medications Atorvastatin Calcium (Lipitor -) 10 mg PO HS [facility] Last Admin: 02/11/17 22:50 Dose: 10 mg Clotrimazole (Lotrimin 1% Cream -) 1 applic TP BID [facility] Last Admin: 02/11/17 23:32 Dose: 1 applic Donepezil HCl (Aricept -) 5 mg PO HS [facility] Last Admin: 02/11/17 22:50 Dose: 5 mg Sodium Chloride (1/2 Normal Saline) 1,000 mls @ 125 mls/hr IV ASDIR [facility] Last Admin: 02/12/17 01:48 Dose: 125 mls/hr Memantine (Namenda -) 5 mg PO BID [facility] Last Admin: 02/11/17 22:50 Dose: 5 mg Metoprolol Tartrate (Lopressor -) 50 mg PO DAILY [facility] Last Admin: 02/11/17 11:01 Dose: 50 mg Mirtazapine (Remeron -) 15 mg PO HS [facility] Last Admin: 02/11/17 22:50 Dose: 15 mg Polyethylene Glycol (Miralax (For Daily Use) -) 17 gm PO BID [facility] Last Admin: 02/11/17 23:31 Dose: Not Given Senna (Senna -) 2 tab PO DAILY [facility] Last Admin: 02/11/17 11:14 Dose: Not Given Tamsulosin HCl (Flomax -) 0.4 mg PO DAILY@0830 [facility] Last Admin: 02/11/17 11:01 Dose: 0.4 mg CBC, BMP 02/12/17 07:30 02/12/17 07:30 Physical Exam. looks weak lungs- clear cvs- s1, s2 rrr abd - soft/ non tender ext- no edema neuro- drowsy but arousable. ASSESSMENT/PLAN: GI Bleed Acute renal failure dementia Plan transfuse fluids stool for c diff gi consult - Discussed with Dr. Cooper discussed with nursing staff monitor labs d/c laxatives will follow called pts js José to give update- left voice mail . Problem List - Problems (1) Dementia Code(s): F03.90 - UNSPECIFIED DEMENTIA WITHOUT BEHAVIORAL DISTURBANCE (2) Fall Code(s): W19.XXXA - UNSPECIFIED FALL, INITIAL ENCOUNTER Qualifiers: Encounter type: initial encounter Qualified Code(s): W19.XXXA - Unspecified fall, initial encounter (3) Syncope Code(s): R55 - SYNCOPE AND COLLAPSE Qualifiers: Syncope type: unspecified Qualified Code(s): R55 - Syncope and collapse (4) Diabetes mellitus Code(s): E11.9 - TYPE 2 DIABETES MELLITUS WITHOUT COMPLICATIONS (5) Urinary retention due to benign prostatic hyperplasia Code(s): N40.1 - BENIGN PROSTATIC HYPERPLASIA WITH LOWER URINARY TRACT SYMP; R33.8 - OTHER RETENTION OF URINE
[2017-02-12] MEDS ORDERED: PANTOPRAZOLE SODIUM 40 MG VIAL IVPUSH SCH (11:45)
[2017-02-12] MEDS ORDERED: PT OWN MED DRAWER 7, Y5N ONE ×2 (11:49→22:54)
--- NOTE | 2017-02-12 12:01 | CON.GI ---
Consult Consult Specialty:: Gastroenterology Referred by:: Dr Delmy Riddle Reason for Consultation:: Anemia, GI bleed - History of Present Illness Chief Complaint: Unable to offer complaints History of Present Illness: 86M with OMS is transferred from the [place] after a syncopal spell while in [place]. He had apparently fallen earlier. He developed melena today and his Hb has dropped from 9 to 6.5. No hematemesis reported. Japser is constantly moaning but offers no verbal responses to questions. I called his niece but could only leave a message for her to call back. He apparently had a ureteral stent recently placed and laser lithotripsy for left sided stones. 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 Cardio/Vascular: Yes: Aneurysm (AAA and iliac), HTN, Hyperlipdemia Gastrointestinal: Yes: Constipation, Other (dysphagia requiring puree diet) Renal/: Yes: Renal Inusuff, BPH, Renal Calculi - Past Surgical History Additional Surgical History: Right colon surgery - Alcohol/Substance Use Hx Alcohol Use: No - Smoking History Smoking history: Never smoked Have you smoked in the past 12 months: No - Social History Usual Living Arrangement: [facility] ADL: Support Services Home Medications - Allergies Allergies/Adverse Reactions: Allergies Allergy/AdvReac Type Severity Reaction Status Date / Time No Known Allergies Allergy Verified 02/04/17 12:22 - Home Medications Home Medications: Ambulatory Orders Metoprolol Tartrate [Lopressor -] 50 mg PO DAILY 09/05/12 Memantine HCl [Namenda -] 5 mg PO BID #30 tab 12/13/16 Acetaminophen [Tylenol] 650 mg PO Q6H PRN 12/16/16 Tamsulosin HCl [Flomax] 0.4 mg PO DAILY 12/16/16 Atorvastatin Ca [Lipitor] 10 mg PO HS 12/20/16 Donepezil HCl [Aricept -] 5 mg PO DAILY 12/20/16 Mirtazapine [Remeron -] 15 mg PO HS 12/20/16 Bacitracin - [Bacitracin Topical Ointment -] 1 applic TP BID 02/04/17 Docusate Sodium [Colace -] 200 mg PO BID 02/04/17 Polyethylene Glycol 3350 [Miralax 119 gm Btl -] 17 gm PO BID 02/04/17 Sennosides [Senna -] 2 tab PO DAILY 02/04/17 Alprazolam [Xanax] 0.25 mg PO Q8H PRN #30 tablet MDD 3 02/10/17 Heparin - 5,000 unit SQ TID vial 02/10/17 Family Disease History - Family Disease History Family History: Unable to Obtain Physical Exam-GI Vital Signs: Vital Signs Temperature 97.8 F 02/12/17 06:00 Pulse Rate 82 02/12/17 06:00 Respiratory Rate 22 02/12/17 06:00 Blood Pressure 123/77 02/12/17 06:00 O2 Sat by Pulse Oximetry (%) 98 02/11/17 21:00 CBC,CMP WBC 12.8 K/mm3 (4.0-10.0) H 02/12/17 07:30 RBC 2.43 M/mm3 (4.00-5.60) L 02/12/17 07:30 Hgb 6.5 GM/dL (11.7-16.9) L* 02/12/17 07:30 Hct 20.7 % (35.4-49) L 02/12/17 07:30 MCV 85.2 fl (80-96) 02/12/17 07:30 MCH 26.7 pg (25.7-33.7) 02/12/17 07:30 MCHC 31.3 g/dl (32.0-35.9) L 02/12/17 07:30 RDW 15.7 % (11.9-15.9) 02/12/17 07:30 Plt Count 341 K/MM3 (134-434) 02/12/17 07:30 MPV 8.0 fl (7.5-11.1) 02/12/17 07:30 Absolute Neuts (auto) 13.7 # (42.8-82.8) L 02/04/17 13:30 Absolute Lymphs (auto) 0.6 (8-40) L 02/04/17 13:30 Absolute Monos (auto) 0.5 # (3.8-10.2) L 02/04/17 13:30 Absolute Eos (auto) 0.0 # (0-4.5) 02/04/17 13:30 Absolute Basos (auto) 0.0 # (0.1-1) L 02/04/17 13:30 Neutrophils % 83.2 % (42.8-82.8) H 02/12/17 07:30 Lymphocytes % 13.0 % (8-40) D 02/12/17 07:30 Monocytes % 3.6 % (3.8-10.2) L 02/12/17 07:30 Eosinophils % 0.0 % (0-4.5) 02/12/17 07:30 Basophils % 0.2 % (0-2.0) 02/12/17 07:30 Sodium 158 mmol/L (136-145) H 02/12/17 07:30 Potassium 3.9 mmol/L (3.5-5.1) 02/12/17 07:30 Chloride 124 mmol/L (98-107) H 02/12/17 07:30 Carbon Dioxide 25 mmol/L (21-32) 02/12/17 07:30 Anion Gap 9 (8-16) 02/12/17 07:30 BUN 85 mg/dL (7-18) H 02/12/17 07:30 Creatinine 2.2 mg/dL (0.7-1.3) H 02/12/17 07:30 Creat Clearance w eGFR > 60 (>60) 02/08/17 06:40 POC Glucometer 152 UNITS (80-120) 02/12/17 06:23 Random Glucose 139 mg/dL (74-106) H 02/12/17 07:30 Calcium 8.3 mg/dL (8.5-10.1) L 02/12/17 07:30 Phosphorus 2.6 mg/dL (2.5-4.9) 02/05/17 05:48 Magnesium 2.4 mg/dL (1.8-2.4) 02/05/17 05:48 Iron 41 ug/dL (38-169) 02/05/17 05:48 TIBC 129 ug/dL (250-450) L 02/05/17 05:48 Iron Saturation 32 % (15-55) 02/05/17 05:48 Ferritin 1917.756 ng/ml (16.4-293.9) H 02/11/17 08:11 Total Bilirubin 0.6 mg/dL (0.2-1.0) D 02/08/17 06:40 AST 27 U/L (15-37) 02/08/17 06:40 ALT 34 U/L (12-78) 02/08/17 06:40 Alkaline Phosphatase 68 U/L (45-117) 02/08/17 06:40 Creatine Kinase 32 IU/L (39-308) L 02/04/17 13:30 Troponin I < 0.02 ng/ml (0.00-0.05) 02/04/17 13:30 Prot Electrophoresis (.) 02/07/17 05:45 Serum Total Protein 5.2 g/dL (6.0-8.5) L 02/07/17 05:45 Total Protein 5.5 g/dl (6.4-8.2) L 02/08/17 06:40 Albumin 2.0 g/dl (3.4-5.0) L 02/08/17 06:40 Globulin 3.2 g/dL (2.2-3.9) 02/07/17 05:45 Albumin/Globulin Ratio 0.6 (0.7-1.7) L 02/07/17 05:45 Ldyat-4-Mvfeloksx 0.3 gm/dL (0.0-0.4) 02/07/17 05:45 Ietvf-3-Akulrbwxp 0.9 gm/dL (0.4-1.0) 02/07/17 05:45 Beta Globulins 0.5 gm/dL (0.7-1.3) L 02/07/17 05:45 Gamma Globulins 1.4 gm/dL (0.4-1.8) 02/07/17 05:45 Vitamin B12 860 pg/ml (180-914) D 02/05/17 05:48 Serum Folate 11 ng/ml (3.1-17.5) 02/05/17 05:48 TSH 0.97 uIU/ml (0.358-3.74) D 02/04/17 21:15 Current Medications Generic Name Dose Route Start Last Admin Trade Name Freq PRN Reason Stop Dose Admin Atorvastatin Calcium 10 mg 02/05/17 22:00 02/11/17 22:50 Lipitor - PO 10 mg HS SUGAR Administration Clotrimazole 1 applic 02/10/17 22:00 02/12/17 12:05 Lotrimin 1% Cream - TP 1 applic BID SUGAR Administration Donepezil HCl 5 mg 02/05/17 22:00 02/11/17 22:50 Aricept - PO 5 mg HS SUGAR Administration Sodium Chloride 1,000 mls @ 125 mls/hr 02/12/17 00:30 02/12/17 12:06 1/2 Normal Saline IV 125 mls/hr ASDIR SUGAR Administration Pantoprazole Sodium 80 mg/ 100 mls @ 10 mls/hr 02/12/17 12:00 Sodium Chloride IVPB Q10H SUGAR 8 MG/HR Memantine 5 mg 02/05/17 10:00 02/12/17 12:05 Namenda - PO 5 mg BID SUGAR Administration Metoprolol Tartrate 50 mg 02/05/17 10:00 02/12/17 12:05 Lopressor - PO 50 mg DAILY SUGAR Administration Mirtazapine 15 mg 02/05/17 22:00 02/11/17 22:50 Remeron - PO 15 mg HS SUGAR Administration Tamsulosin HCl 0.4 mg 02/05/17 08:30 02/12/17 09:00 Flomax - PO 0.4 mg DAILY@0830 SUGAR Administration Constitutional: Yes: Thin, Other (Moaning but not in any obvious pain) Eyes: Yes: Conjunctiva Clear HENT: Yes: Atraumatic Neck: Yes: Supple Cardiovascular: Yes: Regular Rate and Rhythm Respiratory: Yes: CTA Bilaterally Gastrointestinal Inspection: Yes: Scars (transverse RUQ incision) ...Auscultate: Yes: Normoactive Bowel Sounds ...Palpate: Yes: Soft, Other (nontender) ...Rectal Exam: Yes: Guaiac Positive (black flecks of stool) Labs: CBC, BMP 02/12/17 07:30 02/12/17 07:30 Laboratory Tests 02/05/17 02/08/17 02/11/17 05:48 06:40 08:11 Hgb 9.2 L 9.0 L Sodium BUN Creatinine Ferritin 1917.756 H 02/11/17 02/11/17 02/12/17 22:50 22:50 07:30 Hgb 7.0 L D 6.5 L* Sodium 156 H BUN 76 H D Creatinine 2.4 H D Ferritin 02/12/17 07:30 Hgb Sodium BUN 85 H Creatinine 2.2 H Ferritin Imaging - Results Cat Scan: Report Reviewed (Bridger Cunningham Name: JASPER SOLIS DEPARTMENT OF RADIOLOGY Phys: Nataly Condon AJIT : 1930 Age: 85 Sex: M [facility] Acct: [id number] Loc: [address] Exam Date: 12/20/16 Status: RUSSELL Suarez [id number] Unit Number: [id number] EXAM#: TYPE/EXAM: RESULT: [id number] CT/ABDOMEN PELVIS CT W/O CONTR EXAM: CT abdomen and pelvis without contrast. INDICATION: Status post fall with gross hematuria. Evaluate for traumatic injury to the kidneys. TECHNIQUE: Contiguous axial CT images of the abdomen and pelvis were obtained without oral contrast and without intravenous contrast. Coronal and sagittal reconstructions obtained. COMPARISON: No prior CT abdomen/pelvis. FINDINGS: Evaluation of the solid viscera, vessels and bowel is limited without contrast. Evaluation for renal traumatic injury is limited without IV contrast. There is however no perirenal fluid collection to suggest acute traumatic injury. Mild symmetric perinephric fat stranding is reasonably age-related change. There is a 13 x 10 mm calculus at the left ureterovesical junction with moderate distention of the left ureter and renal pelvis and mild to moderate left hydronephrosis. There is no right hydronephrosis. There is a 5 mm nonobstructing calculus in a mid pole calyx and 1-2 mm punctate nonobstructing calculus in an upper pole calyx of the right kidney. There is no right hydroureteronephrosis. The Singh catheter is malpositioned with the balloon and catheter tip terminating in the prostatic urethra. The prostate gland is enlarged, measuring just a proximally 6.0 x 6.7 cm. Please correlate with PSA and physical exam. The urinary bladder is moderately distended with wall thickening and multiple diverticula. There is nonspecific urinary bladder wall calcification superiorly on the right. There are dependent changes in both lung bases. Mild periosteophyte scarring noted in the medial right lung base. The heart is not enlarged. There is dense calcification of the aortic valve. There is coronary artery calcific atherosclerosis. Liver and spleen are normal in size. The gallbladder is contracted. There is calcified cholelithiasis with no CT evidence of acute cholecystitis. The common bile duct is not dilated. The unenhanced pancreas is grossly unremarkable. There is no mass within the adrenal glands. There is short segment fusiform aneurysmal enlargement of the infrarenal abdominal aorta measuring 3.1 x 2.8 cm. There is moderate calcific atherosclerosis along the abdominal aorta and ostia of the major visceral branch vessels. There is mild fusiform aneurysmal enlargement of bilateral common iliac arteries, each measuring approximately 1.7 cm in diameter. There are anastomotic sutures in the right colon. There are dropped surgical clips in Morison's pouch. There are no dilated loops of large or small bowel to suggest obstruction. The rectum is moderately distended with stool, with suggestion of rectal wall thickening and perirectal fat stranding. There is no gross free intraperitoneal air or ascites. There is osseous demineralization with no evidence of acute fracture in the visualized osseous structures. There are moderate osteoarthritic changes in both hips. There is thoracolumbar spondylosis with multilevel mild canal and neural foraminal stenosis, most significant at L4-L5 where there is severe left neural foraminal stenosis with mass effect on the exiting left L4 nerve. There is a 2.0 x 1.4 cm sclerotic lesion in the left sacral ala. There are also subcentimeter sclerotic lesions in the left iliac bone, left superior pubic ramus and right sacral body IMPRESSION: 1. No evidence of acute traumatic solid visceral injury in the abdomen or pelvis, within the limitations of no IV contrast. 2. Malpositioned Singh catheter with the balloon and catheter tip terminating in the prostatic urethra. Recommended advancement of the Singh catheter. Marked enlargement of the prostate gland. Correlate with PSA and physical exam. 3. A 13 x 10 mm left ureterovesical junction calculus with moderate distention of the left ureter and renal pelvis and mild to moderate left hydronephrosis. Nonobstructing right renal calculi measuring up to 5 mm. No right hydronephrosis. 4. Distended urinary bladder with numerous diverticula which are likely secondary to chronic outlet obstruction. Mild perivesical fat stranding is nonspecific. Please correlate with urinalysis to assess for cystitis. 5. Distended rectum with impacted stool, wall thickening and perirectal fat stranding, attributed to stercoral proctitis. Fecal disimpaction is recommended. 6. Cholelithiasis. No CT evidence of acute cholecystitis or common bile duct dilatation. 7. Fusiform aneurysmal enlargement of the infrarenal abdominal aorta measuring up to 3.1 cm in diameter. 8. Dense calcification of the aortic valve. Please correlate clinically for aortic stenosis. Findings were discussed with AJIT Condon at 10:30 AM on 12/20/2016. Reported By: Vega Banuelos MD 1048 Nataly Condon Technologist: Bina Araujo Transcribed Date /Time: 12/20/16 1048 Electronics Teacher: Vega Banuelos MD Printed Date/Time: [ rep prt dt last] [ rep prt tm last] By: [ rep prt user last] Signed by: Vega Banuelos Signed on: 20-Dec-2016 10:48) Problem List - Problems (1) Gastrointestinal hemorrhage with melena Assessment/Plan: Melena suggests an upper GI source of bleeding. I have empirically started a PPI drip and ordered serial CBCs. Will hold the next beta maine dosage until he receives transfusions. The most likely causes of bleeding in this setting are peptic ulcer disease, erosive gastritis/duodenitis, vascular ectasias and GERD. I have contacted the niece listed as his next of kin to discuss intervention EGD and await a return call to elicit an informed consent. I discussed the case with Dr Riddle. If brisk bleeding ensues an NG tube will be inserted to confirm UGI bleeding within reach of an EGD which may need to be done emergently with a 2 physician consent. His electrolyte imbalance needs to be corrected before undertaking anesthesia. Code(s): K92.1 - MELENA (2) Anemia Assessment/Plan: Acute Hb drop reflects GI bleeding possibly superimposed on anemia of chronic disease and CKD. Code(s): D64.9 - ANEMIA, UNSPECIFIED Qualifiers: Other causes of anemia: acute posthemorrhagic Assessment/Plan PPI drip Transfuse Correct electrolyte imbalance EGD as needed, NG tube if brisk bleeding ensues Will hold beta maine today
[2017-02-12] MEDS: CLOTRIMAZOLE 1% CREAM 15 GM TUBE TP SCH ×2 (12:05→21:34)
[2017-02-12] MEDS: MEMANTINE HCL 5 MG TABLET (UD) PO SCH ×2 (12:05→21:34)
[2017-02-12] MEDS: METOPROLOL TARTRATE 50 MG TABLET (FP) PO SCH ×2 (12:05→12:12)
[2017-02-12] MEDS: POLYETHYLENE GLYCOL 3350 119 GM BTL PO SCH (12:06)
[2017-02-12] MEDS: DOCUSATE SODIUM 100 MG CAPSULE (FP) PO SCH (12:06)
[2017-02-12] MEDS: SENNOSIDES 8.6MG TABLET (FP) PO SCH (12:07)
[2017-02-12] MEDS: PANTOPRAZOLE SODIUM 80 MG in SODIUM CHLORIDE 100 ML IVPB SCH ×2 (12:10→21:34)
--- NOTE | 2017-02-12 13:45 | PN ---
Progress Note (short form) - Note Progress Note: GI Addendum: Jasper's niece called me back. I informed her of his condition including the bleeding. I discussed EGD and the potential of sucg risks as perforation and hemorrhage as well as anesthesia risks. She has granted an informed consent. I discussed the possible need for a subsequent colonoscopy. She tells me that he was never and has no children. She is not aware of his abdominal surgery circumstances. She did tell me that he is a [facility] survivor. I asked her to also call Dr Riddle who has been trying to reach her. Problem List - Problems (1) Gastrointestinal hemorrhage with melena Code(s): K92.1 - MELENA (2) Anemia Code(s): D64.9 - ANEMIA, UNSPECIFIED Qualifiers: Other causes of anemia: acute posthemorrhagic
[2017-02-12] MEDS: DONEPEZIL HCL 5 MG TABLET (FP) PO SCH (21:34)
[2017-02-12] MEDS: MIRTAZAPINE 15 MG TABLET (FP) PO SCH (21:34)
[2017-02-12] MEDS: ACETAMINOPHEN 325 MG TABLET (FP) PO PRN (21:34)
[2017-02-12] MEDS: ATORVASTATIN CA 10 MG TABLET (FP) PO SCH (21:34)
[2017-02-13] MEDS: SODIUM CHLORIDE 0.45% 1,000 ML IV SCH ×2 (06:34→22:29)
[2017-02-13] MEDS: PANTOPRAZOLE SODIUM 80 MG in SODIUM CHLORIDE 100 ML IVPB SCH ×2 (07:13→17:49)
[2017-02-13 07:53] LABS: BASO % 0.4 % (0-2.0); EOS % 0.2 % (0-4.5); HEMATOCRIT 23.8 % (35.4-49); HEMOGLOBIN 7.6 GM/dL (11.7-16.9); LYMPH % 8.5 % (8-40); MCH 27.4 pg (25.7-33.7); MCHC 31.9 g/dl (32.0-35.9); MEAN CELL VOLUME 85.9 fl (80-96); MEAN PLT VOLUME 7.9 fl (7.5-11.1); MONO % 2.4 % (3.8-10.2); NEUT % 88.5 % (42.8-82.8); PLATELET COUNT 326 K/MM3 (134-434); RBC 2.78 M/mm3 (4.00-5.60); RDW 14.6 % (11.9-15.9); WHITE BLOOD COUNT 11.9 K/mm3 (4.0-10.0)
[2017-02-13] MEDS: TAMSULOSIN HCL 0.4 MG CAP.ER.24H (FP) PO SCH (09:15)
[2017-02-13 09:42] LABS: ALBUMIN 1.8 g/dl (3.4-5.0); ANION GAP 9 (8-16); BLOOD UREA NITROGEN 71 mg/dL (7-18); CALCIUM 7.7 mg/dL (8.5-10.1); CHLORIDE 127 mmol/L (98-107); CO2 24 mmol/L (21-32); GLUCOSE,RANDOM 102 mg/dL (74-106); POTASSIUM 3.8 mmol/L (3.5-5.1); SODIUM 160 mmol/L (136-145)
[2017-02-13 09:47] LABS: ALK PHOS 53 U/L (45-117); BILIRUBIN,TOTAL 0.9 mg/dL (0.2-1.0); CREATININE 1.8 mg/dL (0.7-1.3); SGOT/AST 79 U/L (15-37); SGPT/ALT 46 U/L (12-78); TOT PROT 5.5 g/dl (6.4-8.2)
[2017-02-13] MEDS: MEMANTINE HCL 5 MG TABLET (UD) PO SCH ×2 (10:58→22:25)
[2017-02-13] MEDS: CLOTRIMAZOLE 1% CREAM 15 GM TUBE TP SCH ×2 (10:58→22:15)
[2017-02-13] MEDS: METOPROLOL TARTRATE 50 MG TABLET (FP) PO SCH (10:59)
--- NOTE | 2017-02-13 13:08 | PN ---
Progress Note (short form) - Note Progress Note: pt seen/ examined much more alert and awake denies pain. +ve dark stools last night. got 2 units prbcs yesterday on protonix drip Vital Signs Temp 98.6 F 02/13/17 10:00 Pulse 93 H 02/13/17 10:00 Resp 20 02/13/17 10:00 BP 121/59 02/13/17 10:00 Pulse Ox 99 02/13/17 09:00 Intake & Output 02/12/17 02/13/17 02/13/17 23:59 11:59 23:59 Intake Total 1640 1250 Balance 1640 1250 Intake: IV 700 300 1/2 Normal Saline 1,000 700 300 ml @ 125 mls/hr IV ASDIR [facility] Rx#:[id number] IVPB 300 0 Oral 300 360 Oral Supplement 240 Packed Cells 340 350 Other: Voiding Method Incontinent Incontinent # Unmeasured Voids Singh 1 1 Bowel Movement No No Active Medications Acetaminophen (Tylenol -) 650 mg PO Q6H PRN PRN Reason: FEVER OR PAIN Last Admin: 02/12/17 21:34 Dose: 650 mg Atorvastatin Calcium (Lipitor -) 10 mg PO HS [facility] Last Admin: 02/12/17 21:34 Dose: 10 mg Clotrimazole (Lotrimin 1% Cream -) 1 applic TP BID [facility] Last Admin: 02/13/17 10:58 Dose: 1 applic Donepezil HCl (Aricept -) 5 mg PO HS [facility] Last Admin: 02/12/17 21:34 Dose: 5 mg Sodium Chloride (1/2 Normal Saline) 1,000 mls @ 125 mls/hr IV ASDIR [facility] Last Admin: 02/13/17 06:34 Dose: 125 mls/hr Pantoprazole Sodium 80 mg/ (Sodium Chloride) 100 mls @ 10 mls/hr IVPB Q10H SUGAR PRN Reason: 8 MG/HR Last Admin: 02/13/17 07:13 Dose: 10 mls/hr Memantine (Namenda -) 5 mg PO BID [facility] Last Admin: 02/13/17 10:58 Dose: 5 mg Metoprolol Tartrate (Lopressor -) 50 mg PO DAILY [facility] Last Admin: 02/13/17 10:59 Dose: 50 mg Mirtazapine (Remeron -) 15 mg PO HS [facility] Last Admin: 02/12/17 21:34 Dose: 15 mg Tamsulosin HCl (Flomax -) 0.4 mg PO DAILY@0830 [facility] Last Admin: 02/13/17 09:15 Dose: 0.4 mg CBC, BMP 02/13/17 06:45 02/13/17 08:24 Physical Exam. awake/ comfortable lungs- clear cvs- s1, s2 rrr abd - soft/ non tender ext- no edema neuro- more awake- back to baseline ASSESSMENT/PLAN: GI Bleed Acute renal failure- better dementia Plan transfuse another unit today got 2 units yesterday fluids to continue stool for c diff- pending f/u labs discussed with nursing staff scd stockings heparin on hold will follow discussed with pts js José yesterday Problem List - Problems (1) Dementia Code(s): F03.90 - UNSPECIFIED DEMENTIA WITHOUT BEHAVIORAL DISTURBANCE (2) Fall Code(s): W19.XXXA - UNSPECIFIED FALL, INITIAL ENCOUNTER Qualifiers: Encounter type: initial encounter Qualified Code(s): W19.XXXA - Unspecified fall, initial encounter (3) Syncope Code(s): R55 - SYNCOPE AND COLLAPSE Qualifiers: Syncope type: unspecified Qualified Code(s): R55 - Syncope and collapse (4) Diabetes mellitus Code(s): E11.9 - TYPE 2 DIABETES MELLITUS WITHOUT COMPLICATIONS (5) Urinary retention due to benign prostatic hyperplasia Code(s): N40.1 - BENIGN PROSTATIC HYPERPLASIA WITH LOWER URINARY TRACT SYMP; R33.8 - OTHER RETENTION OF URINE
[2017-02-13 14:15] LABS: BASO % 0.3 % (0-2.0); EOS % 0.1 % (0-4.5); HEMATOCRIT 23.7 % (35.4-49); HEMOGLOBIN 7.6 GM/dL (11.7-16.9); LYMPH % 11.3 % (8-40); MCH 27.8 pg (25.7-33.7); MCHC 32.3 g/dl (32.0-35.9); MEAN CELL VOLUME 86.2 fl (80-96); MEAN PLT VOLUME 7.6 fl (7.5-11.1); MONO % 2.6 % (3.8-10.2); NEUT % 85.7 % (42.8-82.8); PLATELET COUNT 340 K/MM3 (134-434); RBC 2.75 M/mm3 (4.00-5.60); RDW 14.8 % (11.9-15.9); WHITE BLOOD COUNT 10.5 K/mm3 (4.0-10.0)
--- NOTE | 2017-02-13 17:59 | PN ---
GI Progress Note Subjective: GI Note: Had a small BM this AM but none since, Hg still < 8. Receiving his 3rd unit PRBCs. He is more alert and interactive today. I explained that he is bleeding and will need an EGD and that I have obtained consent from his niece. Na up to 160. Still behind on fluids. - Objective Vital Signs: Vital Signs Temperature 100.0 F H 02/13/17 15:08 Pulse Rate 89 02/13/17 15:08 Respiratory Rate 18 02/13/17 15:08 Blood Pressure 115/55 02/13/17 15:08 O2 Sat by Pulse Oximetry (%) 99 02/13/17 09:00 Laboratory Tests 02/08/17 02/11/17 02/12/17 06:40 22:50 07:30 Hgb 9.0 L 7.0 L D 6.5 L* 02/13/17 02/13/17 06:45 14:05 Hgb 7.6 L D 7.6 L Constitutional: Calm ...Auscultate: Yes: Normoactive Bowel Sounds ...Palpate: Yes: Soft, Other (nontender) Labs: CBC, BMP 02/13/17 14:05 02/13/17 08:24 Laboratory Tests 02/13/17 08:24 Sodium 160 H Potassium 3.8 Chloride 127 H Carbon Dioxide 24 BUN 71 H Creatinine 1.8 H Assessment/Plan Continue PPI drip Transfuse then IV fluids Correct electrolyte imbalance EGD as needed, NG tube if brisk bleeding ensues Problem List - Problems (1) Gastrointestinal hemorrhage with melena Assessment/Plan: Suspect an upper GI source of bleeding. Continue PPI drip and serial CBCs. His electrolyte imbalance needs to be corrected before undertaking anesthesia. Code(s): K92.1 - MELENA (2) Anemia Code(s): D64.9 - ANEMIA, UNSPECIFIED Qualifiers: Other causes of anemia: acute posthemorrhagic
[2017-02-13] MEDS: MIRTAZAPINE 15 MG TABLET (FP) PO SCH (22:24)
[2017-02-13] MEDS: DONEPEZIL HCL 5 MG TABLET (FP) PO SCH (22:24)
[2017-02-13] MEDS: ATORVASTATIN CA 10 MG TABLET (FP) PO SCH (22:24)
[2017-02-13] MEDS: ACETAMINOPHEN 325 MG TABLET (FP) PO PRN (22:28)
[2017-02-14] MEDS: PANTOPRAZOLE SODIUM 80 MG in SODIUM CHLORIDE 100 ML IVPB SCH ×2 (04:09→14:56)
[2017-02-14] MEDS: SODIUM CHLORIDE 0.45% 1,000 ML IV SCH (06:53)
[2017-02-14 09:03] LABS: BASO % 0.4 % (0-2.0); EOS % 0.8 % (0-4.5); HEMATOCRIT 22.8 % (35.4-49); HEMOGLOBIN 7.5 GM/dL (11.7-16.9); LYMPH % 13.6 % (8-40); MCH 28.2 pg (25.7-33.7); MCHC 33.1 g/dl (32.0-35.9); MEAN CELL VOLUME 85.4 fl (80-96); MONO % 3.3 % (3.8-10.2); NEUT % 81.9 % (42.8-82.8); PLATELET COUNT 307 K/MM3 (134-434); RBC 2.67 M/mm3 (4.00-5.60); WHITE BLOOD COUNT 7.2 K/mm3 (4.0-10.0)
[2017-02-14] MEDS: TAMSULOSIN HCL 0.4 MG CAP.ER.24H (FP) PO SCH (09:10)
[2017-02-14 09:22] LABS: INR 1.24 (0.82-1.09)
[2017-02-14 09:25] LABS: ALBUMIN 1.6 g/dl (3.4-5.0); ALK PHOS 58 U/L (45-117); ANION GAP 7 (8-16); BILIRUBIN,TOTAL 0.3 mg/dL (0.2-1.0); BLOOD UREA NITROGEN 58 mg/dL (7-18); CHLORIDE 127 mmol/L (98-107); CO2 25 mmol/L (21-32); CREATININE 1.6 mg/dL (0.7-1.3); GLUCOSE,RANDOM 90 mg/dL (74-106); POTASSIUM 4.2 mmol/L (3.5-5.1); SGOT/AST 177 U/L (15-37); SGPT/ALT 97 U/L (12-78); SODIUM 159 mmol/L (136-145); TOT PROT 5.2 g/dl (6.4-8.2)
[2017-02-14] MEDS ORDERED: PT OWN MED DRAWER 7, Y5N ONE (09:58)
[2017-02-14] MEDS: MEMANTINE HCL 5 MG TABLET (UD) PO SCH ×2 (10:14→22:19)
[2017-02-14] MEDS: METOPROLOL TARTRATE 50 MG TABLET (FP) PO SCH (10:15)
[2017-02-14] MEDS: CLOTRIMAZOLE 1% CREAM 15 GM TUBE TP SCH ×2 (10:16→22:20)
--- NOTE | 2017-02-14 14:29 | PN ---
Progress Note (short form) - Note Progress Note: pt continue to improve more awake- back to baseline denies pain. getting transfusion. no jean bleeding +ve dark stool last night. gi f/u noted cr better sodium still 159. Vital Signs Temp 99 F 02/14/17 13:00 Pulse 84 02/14/17 13:00 Resp 20 02/14/17 13:00 BP 118/60 02/14/17 13:00 Pulse Ox 99 02/13/17 21:00 Intake & Output 02/13/17 02/14/17 02/14/17 23:59 11:59 23:59 Intake Total 2089 1959 Balance 2089 1959 Intake: IV 700 1650 1/2 Normal Saline 1,000 700 ml @ 125 mls/hr IV ASDIR [facility] Rx#:[id number] 1/2 Normal Saline 1,000 1650 ml @ 150 mls/hr IV ASDIR [facility] Rx#:[id number] IVPB 100 110 Oral 940 200 Packed Cells 350 Other: Voiding Method Incontinent Diaper # Unmeasured Voids Singh 2 Bowel Movement No Active Medications Acetaminophen (Tylenol -) 650 mg PO Q6H PRN PRN Reason: FEVER OR PAIN Last Admin: 02/13/17 22:28 Dose: 650 mg Atorvastatin Calcium (Lipitor -) [address] [facility] Last Admin: 02/13/17 22:24 Dose: 10 mg Clotrimazole (Lotrimin 1% Cream -) 1 applic TP BID [facility] Last Admin: 02/14/17 10:16 Dose: 1 applic Donepezil HCl (Aricept -) [address] [facility] Last Admin: 02/13/17 22:24 Dose: 5 mg Pantoprazole Sodium 80 mg/ (Sodium Chloride) 100 mls @ 10 mls/hr IVPB Q10H [facility] PRN Reason: 8 MG/HR Last Admin: 02/14/17 04:09 Dose: 10 mls/hr Sodium Chloride (1/2 Normal Saline) 1,000 mls @ 150 mls/hr IV ASDIR [facility] Last Admin: 02/14/17 06:53 Dose: 150 mls/hr Memantine (Namenda -) 5 mg PO BID [facility] Last Admin: 02/14/17 10:14 Dose: 5 mg Metoprolol Tartrate (Lopressor -) 50 mg PO DAILY [facility] Last Admin: 02/14/17 10:15 Dose: Not Given Mirtazapine (Remeron -) 15 mg PO HS [facility] Last Admin: 02/13/17 22:24 Dose: 15 mg Tamsulosin HCl (Flomax -) 0.4 mg PO DAILY@0830 [facility] Last Admin: 02/14/17 09:10 Dose: 0.4 mg CBC, BMP 02/14/17 07:45 02/14/17 07:45 Microbiology 02/12/17 07:10 Clostridium difficile Antigen (SEBASTIAN) - Final Stool Clostridium difficile Toxin Assay - Final Physical Exam. awake/ comfortable lungs- clear cvs- s1, s2 rrr abd - soft/ non tender ext- no edema neuro- more awake- back to baseline. ASSESSMENT/PLAN: GI Bleed Acute renal failure- better hypernatremia dementia Plan transfuse another unit today fluids to continue stool for c diff- -ve f/u labs discussed with nursing staff scd stockings heparin on hold will follow change diet to thickened puree Problem List - Problems (1) Dementia Code(s): F03.90 - UNSPECIFIED DEMENTIA WITHOUT BEHAVIORAL DISTURBANCE (2) Fall Code(s): W19.XXXA - UNSPECIFIED FALL, INITIAL ENCOUNTER Qualifiers: Encounter type: initial encounter Qualified Code(s): W19.XXXA - Unspecified fall, initial encounter (3) Syncope Code(s): R55 - SYNCOPE AND COLLAPSE Qualifiers: Syncope type: unspecified Qualified Code(s): R55 - Syncope and collapse (4) Diabetes mellitus Code(s): E11.9 - TYPE 2 DIABETES MELLITUS WITHOUT COMPLICATIONS (5) Urinary retention due to benign prostatic hyperplasia Code(s): N40.1 - BENIGN PROSTATIC HYPERPLASIA WITH LOWER URINARY TRACT SYMP; R33.8 - OTHER RETENTION OF URINE
[2017-02-14] MEDS: ALBUTEROL SO4 0.083% IH SOL 2.5 MG/3 ML VIAL.NEB. NEB PRN (15:15)
--- NOTE | 2017-02-14 16:38 | PN ---
GI Progress Note Subjective: GI NOte: More alert. Denies pain. Needed another unit PRBCs today but had no BMs. Met his niece in person last night who signed the EGD consent. - Objective Vital Signs: Vital Signs Temperature 98.6 F 02/14/17 14:24 Pulse Rate 92 H 02/14/17 14:58 Respiratory Rate 20 02/14/17 14:58 Blood Pressure 103/60 02/14/17 14:58 O2 Sat by Pulse Oximetry (%) 99 02/13/17 21:00 Constitutional: No Distress ...Auscultate: Yes: Normoactive Bowel Sounds ...Palpate: Yes: Soft, Other (nontender) Labs: CBC, BMP 02/14/17 07:45 02/14/17 07:45 INR, PTT INR 1.24 (0.82-1.09) H 02/14/17 07:45 Assessment/Plan Continue PPI drip Resume hydration after transfusion EGD when electrolyte abnormalities are corrected Problem List - Problems (1) Gastrointestinal hemorrhage with melena Assessment/Plan: Continue to suspect an upper GI source of bleeding which has hopefully stopped. Continue PPI drip and serial CBCs. His electrolyte imbalance needs to be corrected before undertaking EGD with anesthesia. Code(s): K92.1 - MELENA (2) Anemia Code(s): D64.9 - ANEMIA, UNSPECIFIED Qualifiers: Other causes of anemia: acute posthemorrhagic (3) Hypernatremia Code(s): E87.0 - HYPEROSMOLALITY AND HYPERNATREMIA (4) Dehydration with hypernatremia Code(s): E87.0 - HYPEROSMOLALITY AND HYPERNATREMIA (5) Acute prerenal azotemia Code(s): R79.89 - OTHER SPECIFIED ABNORMAL FINDINGS OF BLOOD CHEMISTRY
[2017-02-14] MEDS ORDERED: DEXTROSE 5%-WATER - 1,000 ML IV SCH (16:45)
[2017-02-14] MEDS: DEXTROSE 5%-WATER - 1,000 ML IV SCH (18:18)
--- NOTE | 2017-02-14 18:59 | HOSP ---
Physical Examination Vital Signs: Vital Signs Temperature 98.6 F 02/14/17 14:24 Pulse Rate 92 H 02/14/17 14:58 Respiratory Rate 20 02/14/17 14:58 Blood Pressure 103/60 02/14/17 14:58 O2 Sat by Pulse Oximetry (%) 96 02/14/17 10:00 Findings/Remarks: Received call from RN re: chest x-ray with bibasilar atelectasis/infiltrative changes. Discussed with primary, Dr. Riddle. The patient has WBC wnl, afebrile. Per Dr. Riddle, will hold off on abx for now and primary will monitor tomorrow Labs: CBC, BMP 02/14/17 07:45 02/14/17 07:45
[2017-02-14] MEDS: AZITHROMYCIN IVPB 500 MG in DEXTROSE 5%-WATER - 250 ML IVPB SCH (20:05)
[2017-02-14] MEDS: CEFTRIAXONE 1 G/50 ML PREMIX 50 ML IVPB SCH (20:28)
[2017-02-14] MEDS: ATORVASTATIN CA 10 MG TABLET (FP) PO SCH (22:19)
[2017-02-14] MEDS: DONEPEZIL HCL 5 MG TABLET (FP) PO SCH (22:19)
[2017-02-14] MEDS: MIRTAZAPINE 15 MG TABLET (FP) PO SCH (22:19)
[2017-02-15] MEDS: PANTOPRAZOLE SODIUM 80 MG in SODIUM CHLORIDE 100 ML IVPB SCH (02:37)
[2017-02-15] MEDS: DEXTROSE 5%-WATER - 1,000 ML IV SCH ×3 (02:38→17:00)
[2017-02-15] MEDS: TAMSULOSIN HCL 0.4 MG CAP.ER.24H (FP) PO SCH (08:06)
[2017-02-15 08:25] LABS: BASO % 0.4 % (0-2.0); EOS % 1.9 % (0-4.5); HEMATOCRIT 24.3 % (35.4-49); HEMOGLOBIN 7.9 GM/dL (11.7-16.9); LYMPH % 18.5 % (8-40); MCH 27.6 pg (25.7-33.7); MCHC 32.7 g/dl (32.0-35.9); MEAN CELL VOLUME 84.6 fl (80-96); MEAN PLT VOLUME 8.2 fl (7.5-11.1); MONO % 5.4 % (3.8-10.2); NEUT % 73.8 % (42.8-82.8); PLATELET COUNT 288 K/MM3 (134-434); RBC 2.87 M/mm3 (4.00-5.60); RDW 15.7 % (11.9-15.9)
[2017-02-15 09:02] LABS: ALBUMIN 1.5 g/dl (3.4-5.0); ANION GAP 5 (8-16); BLOOD UREA NITROGEN 40 mg/dL (7-18); CALCIUM 7.5 mg/dL (8.5-10.1); CHLORIDE 119 mmol/L (98-107); CO2 27 mmol/L (21-32); GLUCOSE,RANDOM 107 mg/dL (74-106); POTASSIUM 4.5 mmol/L (3.5-5.1); SODIUM 151 mmol/L (136-145)
[2017-02-15 09:06] LABS: ALK PHOS 59 U/L (45-117); BILIRUBIN,TOTAL 0.5 mg/dL (0.2-1.0); CREATININE 1.4 mg/dL (0.7-1.3); SGOT/AST 189 U/L (15-37); SGPT/ALT 119 U/L (12-78); TOT PROT 4.9 g/dl (6.4-8.2)
[2017-02-15] MEDS: MEMANTINE HCL 5 MG TABLET (UD) PO SCH ×2 (09:54→22:39)
[2017-02-15] MEDS: METOPROLOL TARTRATE 50 MG TABLET (FP) PO SCH (09:54)
[2017-02-15] MEDS: CEFTRIAXONE 1 G/50 ML PREMIX 50 ML IVPB SCH ×2 (10:00→19:03)
[2017-02-15] MEDS: AZITHROMYCIN IVPB 500 MG in DEXTROSE 5%-WATER - 250 ML IVPB SCH ×2 (10:00→22:40)
--- NOTE | 2017-02-15 10:34 | PN ---
Progress Note (short form) - Note Progress Note: pt seen / examined i started on abx yesterday as pt does have moist cough cxr- atelactasis/ pneumonia- reviewed Vital Signs Temp 97.9 F 02/15/17 09:12 Pulse 77 02/15/17 09:12 Resp 20 02/15/17 09:12 BP 114/58 02/15/17 09:12 Pulse Ox 96 02/14/17 21:00 Intake & Output 02/14/17 02/14/17 02/15/17 11:59 23:59 11:59 Intake Total 1959 2269 1869 Balance 1959 2269 1869 Intake: IV 1650 1170 1370 1/2 Normal Saline 1,000 1650 950 ml @ 150 mls/hr IV ASDIR [facility] Rx#:[id number] D5w - 1,000 ml @ 125 mls/ 100 1250 hr IV ASDIR [facility] Rx#: [id number] protoniix gtt at 10 cc/hr 120 120 IVPB 110 350 Oral 200 750 150 Packed Cells 350 Other: Voiding Method Diaper Incontinent Incontinent # Unmeasured Voids Singh 3 2 Bowel Movement No No Active Medications Acetaminophen (Tylenol -) 650 mg PO Q6H PRN PRN Reason: FEVER OR PAIN Last Admin: 02/13/17 22:28 Dose: 650 mg Albuterol Sulfate (Ventolin 0.083% Nebulizer Soln -) 1 amp NEB Q4H PRN PRN Reason: SHORT OF BREATH/WHEEZING Last Admin: 02/14/17 15:15 Dose: 1 amp Atorvastatin Calcium (Lipitor -) 10 mg PO [facility] Last Admin: 02/14/17 22:19 Dose: 10 mg Clotrimazole (Lotrimin 1% Cream -) 1 applic TP BID [facility] Last Admin: 02/14/17 22:20 Dose: 1 applic Donepezil HCl (Aricept -) 5 mg PO HS [facility] Last Admin: 02/14/17 22:19 Dose: 5 mg Pantoprazole Sodium 80 mg/ (Sodium Chloride) 100 mls @ 10 mls/hr IVPB Q10H [facility] PRN Reason: 8 MG/HR Last Admin: 02/15/17 02:37 Dose: 10 mls/hr Dextrose (D5w -) 1,000 mls @ 125 mls/hr IV ASDIR [facility] Last Admin: 02/15/17 02:38 Dose: 125 mls/hr Azithromycin 500 mg/ Dextrose 250 mls @ 250 mls/hr IVPB DAILY [facility] Last Admin: 02/14/17 20:05 Dose: 250 mls/hr CEFTRIAXONE 1 G/50 ML PREMIX (Ceftriaxone 1 Gm-D5w Bag) 50 mls @ 100 mls/hr IVPB DAILY [facility] Last Admin: 02/14/17 20:28 Dose: 100 mls/hr Memantine (Namenda -) 5 mg PO BID [facility] Last Admin: 02/15/17 09:54 Dose: Not Given Metoprolol Tartrate (Lopressor -) 50 mg PO DAILY [facility] Last Admin: 02/15/17 09:54 Dose: Not Given Mirtazapine (Remeron -) 15 mg PO HS [facility] Last Admin: 02/14/17 22:19 Dose: 15 mg Tamsulosin HCl (Flomax -) 0.4 mg PO DAILY@0830 [facility] Last Admin: 02/15/17 08:06 Dose: Not Given CBC, BMP 02/15/17 06:30 02/15/17 06:30 chest x-ray--- bi basilar infiltrate Physical Exam. awake/ comfortable. no distress. Chronic ill appearance lungs- Diminished at bases cvs- s1, s2 rrr abd - soft/ non tender ext- no edema neuro- awake- ASSESSMENT/PLAN: GI Bleed pneumonia Acute renal failure- better hypernatremia dementia Plan antibiotics Continue present care Scheduled for EGD today will follow Problem List - Problems (1) Dementia Code(s): F03.90 - UNSPECIFIED DEMENTIA WITHOUT BEHAVIORAL DISTURBANCE (2) Fall Code(s): W19.XXXA - UNSPECIFIED FALL, INITIAL ENCOUNTER Qualifiers: Encounter type: initial encounter Qualified Code(s): W19.XXXA - Unspecified fall, initial encounter (3) Syncope Code(s): R55 - SYNCOPE AND COLLAPSE Qualifiers: Syncope type: unspecified Qualified Code(s): R55 - Syncope and collapse (4) Diabetes mellitus Code(s): E11.9 - TYPE 2 DIABETES MELLITUS WITHOUT COMPLICATIONS (5) Urinary retention due to benign prostatic hyperplasia Code(s): N40.1 - BENIGN PROSTATIC HYPERPLASIA WITH LOWER URINARY TRACT SYMP; R33.8 - OTHER RETENTION OF URINE
[2017-02-15] MEDS ORDERED: PT OWN MED DRAWER 7, Y5N ONE (10:56)
[2017-02-15] MEDS: CLOTRIMAZOLE 1% CREAM 15 GM TUBE TP SCH ×2 (12:00→22:39)
[2017-02-15] MEDS: ALBUTEROL SO4 0.083% IH SOL 2.5 MG/3 ML VIAL.NEB. NEB PRN ×2 (13:41→22:20)
--- NOTE | 2017-02-15 15:48 | PN ---
Progress Note, VACUUM CASTER - Note Progress Note: Consultation received for speech and swallow evaluation (02/14/17). Current diet: puree / nectar thicken liquids. master printer Cliff reported that pt was coughing during meals and just recently diagnosed with PNA. Pt is currently NPO secondary to endoscopy procedure this afternoon. VACUUM CASTER will defer CBE until after procedure is completed. master printer notified and pcp notified via chart.
--- NOTE | 2017-02-15 18:04 | PN ---
GI Progress Note Subjective: GI NOte: NO overt bleeding. Hb has finally stablizied and Na down to 151. More mentally interactive. Denies pain. LFTs rising. - Objective Vital Signs: Vital Signs Temperature 98 F 02/15/17 14:33 Pulse Rate 70 02/15/17 14:33 Respiratory Rate 18 02/15/17 14:33 Blood Pressure 125/59 02/15/17 14:33 O2 Sat by Pulse Oximetry (%) 96 02/14/17 21:00 Laboratory Tests 02/15/17 02/15/17 06:30 06:30 Hgb 7.9 L Hct 24.3 L Sodium 151 H BUN 40 H D Creatinine 1.4 H Total Bilirubin 0.5 D AST 189 H ALT 119 H D Alkaline Phosphatase 59 Albumin 1.5 L Constitutional: Calm ...Auscultate: Yes: Normoactive Bowel Sounds ...Palpate: Yes: Soft, Other (nontender) ...Percussion: Yes: Tympanitic Labs: CBC, BMP 02/15/17 06:30 02/15/17 06:30 INR, PTT INR 1.24 (0.82-1.09) H 02/14/17 07:45 Assessment/Plan EGD tomorrow Liver sonogram Hepatitis studies Continue IV fluids Problem List - Problems (1) Gastrointestinal hemorrhage with melena Assessment/Plan: Bleeding has appeared to stop. Will proceed with EGD tomorrow Code(s): K92.1 - MELENA (2) Anemia Code(s): D64.9 - ANEMIA, UNSPECIFIED Qualifiers: Other causes of anemia: acute posthemorrhagic (3) Hypernatremia Assessment/Plan: Responding to fluids Code(s): E87.0 - HYPEROSMOLALITY AND HYPERNATREMIA (4) Dehydration with hypernatremia Assessment/Plan: Continue IV fluids Code(s): E87.0 - HYPEROSMOLALITY AND HYPERNATREMIA (5) Acute prerenal azotemia Code(s): R79.89 - OTHER SPECIFIED ABNORMAL FINDINGS OF BLOOD CHEMISTRY (6) Hepatitis Assessment/Plan: Etiology of elevated LFTs is inclear but will screen for chromic liver diseases and get a liver sonogram Code(s): K75.9 - INFLAMMATORY LIVER DISEASE, UNSPECIFIED
[2017-02-15] MEDS: PANTOPRAZOLE 40 MG TABLET (FP) PO SCH (22:38)
[2017-02-15] MEDS: MIRTAZAPINE 15 MG TABLET (FP) PO SCH (22:39)
[2017-02-15] MEDS: DONEPEZIL HCL 5 MG TABLET (FP) PO SCH (22:39)
[2017-02-15] MEDS: ATORVASTATIN CA 10 MG TABLET (FP) PO SCH (22:39)
[2017-02-16] MEDS: ALBUTEROL SO4 0.083% IH SOL 2.5 MG/3 ML VIAL.NEB. NEB PRN (06:30)
--- NOTE | 2017-02-16 08:55 | PN ---
Progress Note (short form) - Note Progress Note: pt more awake/ comfortable. denies pain. afebrile egd was postponed yesterday - scheduled for today no over bleeding overnight Vital Signs Temp 97.8 F 02/16/17 06:00 Pulse 74 02/16/17 06:00 Resp 20 02/16/17 06:00 BP 112/58 02/16/17 06:00 Pulse Ox 98 02/15/17 11:05 Intake & Output 02/15/17 02/15/17 02/16/17 11:59 23:59 11:59 Intake Total 1870 2775 900 Balance 1870 2775 900 Intake: IV 1370 2005 700 D5w - 1,000 ml @ 100 mls/ 700 700 hr IV ASDIR [facility] Rx#: [id number] D5w - 1,000 ml @ 125 mls/ 1250 1250 hr IV ASDIR [facility] Rx#: [id number] protoniix gtt at 10 cc/hr 120 55 IVPB 350 300 Oral 150 200 200 Oral Supplement 270 Other: Voiding Method Diaper Incontinent Diaper # Unmeasured Voids Singh 2 3 2 Void 2 2 Bowel Movement No No No Active Medications Acetaminophen (Tylenol -) 650 mg PO Q6H PRN PRN Reason: FEVER OR PAIN Last Admin: 02/13/17 22:28 Dose: 650 mg Albuterol Sulfate (Ventolin 0.083% Nebulizer Soln -) 1 amp NEB Q4H PRN PRN Reason: SHORT OF BREATH/WHEEZING Last Admin: 02/16/17 06:30 Dose: 1 amp Atorvastatin Calcium (Lipitor -) 10 mg PO HS [facility] Last Admin: 02/15/17 22:39 Dose: 10 mg Clotrimazole (Lotrimin 1% Cream -) 1 applic TP BID [facility] Last Admin: 02/15/17 22:39 Dose: 1 applic Collagenase (Santyl -) 1 applic TP DAILY [facility] Donepezil HCl (Aricept -) 5 mg PO HS [facility] Last Admin: 02/15/17 22:39 Dose: 5 mg Azithromycin 500 mg/ Dextrose 250 mls @ 250 mls/hr IVPB DAILY [facility] Last Admin: 02/15/17 22:40 Dose: 250 mls/hr CEFTRIAXONE 1 G/50 ML PREMIX (Ceftriaxone 1 Gm-D5w Bag) 50 mls @ 100 mls/hr IVPB DAILY [facility] Last Admin: 02/15/17 19:03 Dose: 100 mls/hr Dextrose (D5w -) 1,000 mls @ 100 mls/hr IV ASDIR [facility] Last Admin: 02/15/17 17:00 Dose: 100 mls/hr Memantine (Namenda -) 5 mg PO BID [facility] Last Admin: 02/15/17 22:39 Dose: 5 mg Metoprolol Tartrate (Lopressor -) 50 mg PO DAILY [facility] Last Admin: 02/15/17 09:54 Dose: Not Given Mirtazapine (Remeron -) 15 mg PO HS [facility] Last Admin: 02/15/17 22:39 Dose: 15 mg Pantoprazole Sodium (Protonix -) 40 mg PO BID [facility] Last Admin: 02/15/17 22:38 Dose: 40 mg Tamsulosin HCl (Flomax -) 0.4 mg PO DAILY@0830 [facility] Last Admin: 02/15/17 08:06 Dose: Not Given todays labs - pending. Physical Exam. awake/ comfortable. no distress. lungs- Diminished at bases cvs- s1, s2 rrr abd - soft/ non tender ext- no edema neuro- awake- ASSESSMENT/PLAN: GI Bleed pneumonia Acute renal failure- better hypernatremia dementia Plan antibiotics Continue present care Scheduled for EGD today u/s liver today f/u labs / lft s will follow Problem List - Problems (1) Dementia Code(s): F03.90 - UNSPECIFIED DEMENTIA WITHOUT BEHAVIORAL DISTURBANCE (2) Fall Code(s): W19.XXXA - UNSPECIFIED FALL, INITIAL ENCOUNTER Qualifiers: Encounter type: initial encounter Qualified Code(s): W19.XXXA - Unspecified fall, initial encounter (3) Syncope Code(s): R55 - SYNCOPE AND COLLAPSE Qualifiers: Syncope type: unspecified Qualified Code(s): R55 - Syncope and collapse (4) Diabetes mellitus Code(s): E11.9 - TYPE 2 DIABETES MELLITUS WITHOUT COMPLICATIONS (5) Urinary retention due to benign prostatic hyperplasia Code(s): N40.1 - BENIGN PROSTATIC HYPERPLASIA WITH LOWER URINARY TRACT SYMP; R33.8 - OTHER RETENTION OF URINE
[2017-02-16 09:22] LABS: ALBUMIN 1.5 g/dl (3.4-5.0); ALK PHOS 66 U/L (45-117); BILIRUBIN,DIRECT < 0.2 mg/dL (0.0-0.2); BILIRUBIN,TOTAL 0.3 mg/dL (0.2-1.0); SGOT/AST 187 U/L (15-37); SGPT/ALT 131 U/L (12-78)
[2017-02-16 09:28] LABS: BASO % 0.4 % (0-2.0); EOS % 2.2 % (0-4.5); HEMOGLOBIN 8.1 GM/dL (11.7-16.9); LYMPH % 17.8 % (8-40); MCH 27.6 pg (25.7-33.7); MCHC 32.2 g/dl (32.0-35.9); MEAN CELL VOLUME 85.6 fl (80-96); MEAN PLT VOLUME 8.5 fl (7.5-11.1); MONO % 3.7 % (3.8-10.2); NEUT % 75.9 % (42.8-82.8); PLATELET COUNT 285 K/MM3 (134-434); RBC 2.92 M/mm3 (4.00-5.60); RDW 15.5 % (11.9-15.9); WHITE BLOOD COUNT 5.1 K/mm3 (4.0-10.0)
[2017-02-16 09:44] LABS: CHLORIDE 114 mmol/L (98-107); POTASSIUM 3.8 mmol/L (3.5-5.1); SODIUM 146 mmol/L (136-145)
[2017-02-16] MEDS ORDERED: PT OWN MED DRAWER 7, Y5N ONE (09:45)
[2017-02-16 09:54] LABS: ALBUMIN 1.5 g/dl (3.4-5.0); ALK PHOS 62 U/L (45-117); ANION GAP 6 (8-16); BILIRUBIN,TOTAL 0.5 mg/dL (0.2-1.0); BLOOD UREA NITROGEN 27 mg/dL (7-18); CALCIUM 7.2 mg/dL (8.5-10.1); CO2 26 mmol/L (21-32); CREATININE 1.2 mg/dL (0.7-1.3); GLUCOSE,RANDOM 117 mg/dL (74-106); SGOT/AST 175 U/L (15-37); SGPT/ALT 130 U/L (12-78); TOT PROT 4.9 g/dl (6.4-8.2)
[2017-02-16] MEDS: CLOTRIMAZOLE 1% CREAM 15 GM TUBE TP SCH ×2 (10:16→23:05)
[2017-02-16] MEDS: PANTOPRAZOLE 40 MG TABLET (FP) PO SCH ×2 (10:16→23:05)
[2017-02-16] MEDS: TAMSULOSIN HCL 0.4 MG CAP.ER.24H (FP) PO SCH (10:16)
[2017-02-16] MEDS: CEFTRIAXONE 1 G/50 ML PREMIX 50 ML IVPB SCH (10:16)
[2017-02-16] MEDS: METOPROLOL TARTRATE 50 MG TABLET (FP) PO SCH (10:16)
[2017-02-16] MEDS: MEMANTINE HCL 5 MG TABLET (UD) PO SCH ×2 (10:17→23:05)
[2017-02-16] MEDS: DEXTROSE 5%-WATER - 1,000 ML IV SCH ×3 (10:19→20:09)
[2017-02-16] MEDS: AZITHROMYCIN IVPB 500 MG in DEXTROSE 5%-WATER - 250 ML IVPB SCH (10:21)
[2017-02-16] MEDS: COLLAGENASE CLOSTRIDIUM HIST. 30 GRAMS TUBE TP SCH ×2 (10:22→20:08)
[2017-02-16] MEDS ORDERED: PROPOFOL 20 ML ONE ×2 (12:42)
[2017-02-16] MEDS ORDERED: LIDOCAINE HCL/PF 2% SDV 5ML VIAL ONE (12:42)
[2017-02-16] MEDS ORDERED: ePHEDrine SULFATE 50 MG/1 ML AMPULE ONE (12:42)
--- NOTE | 2017-02-16 13:21 | PN ---
Progress Note (short form) - Note Progress Note: EGD complete: report placed in procedural section of physical chart and to be scanned into [facility]
--- NOTE | 2017-02-16 16:39 | CONSULT ---
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: Yes: Dementia Cardiovascular: Yes: Aneurysm (AAA and iliac), HTN, Hyperlipdemia Gastrointestinal: Yes: Constipation, Other (dysphagia requiring puree diet) Renal/: Yes: Renal Inusuff, BPH, Renal Calculi Endocrine: Yes: Diabetes Mellitus (NIIDM) - Smoking History Smoking history: Never smoked Have you smoked in the past 12 months: No - Alcohol/Substance Use Hx Alcohol Use: No - Social History ADL: Support Services History - Admission Reason For Visit: SYNCOPE,FALL - Hearing Hearing: Impaired Speech Evaluation - Communication Primary Language: HEBREW Communication: Yes: Simple Responses, Language Barrier Oral Expression Ability: Yes: Moderate Impairment - Speech Production Apraxia: No Able to Make Needs Known: Yes: Moderately Impaired Intelligibility: Yes: Moderately Impaired - Speech Characteristics Voice Loudness: Moderately Soft/Quiet Voice Pitch: Yes: Limited Variation Voice Phonatory-based Quality: Yes: Breathy Speech Pattern: Impaired Speech Clarity: < 50% Nasal Resonance: Normal Articulation: Yes: Precise Rate of Speech: Too Slow - Language/Auditory Comprehension Follows: Yes: 1 Stage Simple Commands (WFL) Observation: Able to respond to yes/no queries: Yes, Yes/No Confusion: No, Comprehends Conversational Speech: Yes, Benefits from Slow Speech: Yes, Benefits from Repetiton: Yes - Language/Verbal Expression Able to Respond to Simple Queries: Yes: WNL Able to Communicate Wants and Needs: Yes: Moderately Impaired Functional Communication Status: Yes: Mildly Impaired Aware of Errors: No Attempts to Correct Errors: No Use of Gestures: Yes Attention: Yes: Intact - Memory/Perception half-way Memory: Yes: Moderately Impaired Short Term Memory: Yes: Mildly Impaired - Swallow Evaluation/Bedside Assessment Current Nutritional Intake: Dysphagia Pureed, Brusly Textured Liquids Oral Secretions: Yes: WFL Tracheostomy Present: No Patient on Ventilator: No Dentition: Yes: Edentulous, Missing Teeth Facial Symmetry at Rest: Symmetrical Facial Symmetry on Retraction: Symmetrical Facial Movement: Controlled Sensation: Normal Facial Comment: WFL for speech and swallowing purposes. Jaw Position: Closed at Rest Against Resistance Opening: Weak Against Resistance Closing: Weak Smile: Normal Lips, Comment: WFL for speech and swallowing purposes. Lingual Speed of Movement: Reduced Lingual Movement Strgth Against Opposition: Reduced Lingual Movement Characteristics: Spasms, Writhing Lingual Comment: Writhing pattern but functional for speech Soft Palate Description: Normal Color Hard Palate Description: Normal Color Gag Reflex: Weak Bite Reflex: Present Velopharyngeal Movement: Normal Laryngeal Elevation: WFL Laryngeal Movement: Able to Palpate Needs Assistance: Yes Rate of Intake: WFL Bolus Size: WFL Labial Seal: WFL Chewing: Impaired Oral Prep Time: WFL A-P Transit: WFL Timing of Swallow: WFL Odynophagia: Oral Other Findings/Remarks: 86 yo male seen at bedside for swallow eval to rule out dysphagia. Pt is verbal , A&Ox2 cooperative. Pt presents with hx dementia, BPH DM CVA HTA anemia HLD KIMBERLY. Pt was able to perform limited oral motor examination. Adequate airway protection, reduced vocal quality. Pt was NPO yesterday and earlier this day for endoscopy procedure Pt given po trials of puree and soft solids with total assistance revealed good acceptance, increased bolus formation and transfer times with soft solids. Pharyngeal swallows appears timely with bolus residue observe on tongue and teeth after the swallow. No cough or changes in respiration. Pt given po trials of ice chips, thin and thicken liquids with some assistance revealed good acceptance, adequate bolus control and transfer. Pharyngeal swallows appears timely. Positive s/s of aspiration with ice chips and small sips of thin liquids No cough or changes in respiration with thicken fluids at this time. Recommendations - Speech Evaluation, Impression/Plan Impression: 86 year old male present with mild oral phase dysphagia for soft solids. No aspiration seen with puree and thicken liquids at this time. Long-Term Goals: tolerate the least restrictive diet without s/s of aspiration. Short Term Goals: tolerate pureed and nectar thicken liquids without s/s of aspiration. - Dysphagia Impressions/Plan Swallowing Skills: Impaired Dysphagia Impressions: Mild Impairment, Risk of Aspiration (with thin liquids) *Silent aspiration: cannot be R/O at bedside Dysphagia Treatment Plan: Small Bites, Safe Rate, 1/2 tsp. at a time, Elevate HOB during feed Dysphagia Evaluation Summary: Pt is able to tolerate pureed and nectar thicken liquids without s/s of aspiration at this time. Continue current diet as tolerate. Crush meds in apple sauce or pureed. Observe standard aspiration precautions. Monitor pulmonary status and nutritional intake. Results given verbally to rn hemodialysis charge Liya and to pcp via chart. MODELING TEACHER to follow up for diet tolerance - Recommendations Diet Consistency: Dysphagia Pureed Medication Administration: Crushed with applesauce Liquids: Brusly Thick
[2017-02-16] MEDS: PANTOPRAZOLE SODIUM 80 MG in SODIUM CHLORIDE 100 ML IVPB SCH (20:09)
[2017-02-16] MEDS: ATORVASTATIN CA 10 MG TABLET (FP) PO SCH (23:04)
[2017-02-16] MEDS: DONEPEZIL HCL 5 MG TABLET (FP) PO SCH (23:04)
[2017-02-16] MEDS: MIRTAZAPINE 15 MG TABLET (FP) PO SCH (23:05)
[2017-02-17 10:52] LABS: BASO % 0.5 % (0-2.0); EOS % 1.9 % (0-4.5); HEMATOCRIT 27.4 % (35.4-49); HEMOGLOBIN 8.8 GM/dL (11.7-16.9); LYMPH % 15.2 % (8-40); MCH 27.1 pg (25.7-33.7); MCHC 32.1 g/dl (32.0-35.9); MEAN CELL VOLUME 84.4 fl (80-96); MEAN PLT VOLUME 7.9 fl (7.5-11.1); MONO % 4.2 % (3.8-10.2); NEUT % 78.2 % (42.8-82.8); PLATELET COUNT 312 K/MM3 (134-434); RBC 3.25 M/mm3 (4.00-5.60); RDW 14.9 % (11.9-15.9); WHITE BLOOD COUNT 5.8 K/mm3 (4.0-10.0)
[2017-02-17] MEDS: CEFTRIAXONE 1 G/50 ML PREMIX 50 ML IVPB SCH (10:54)
[2017-02-17] MEDS: METOPROLOL TARTRATE 50 MG TABLET (FP) PO SCH (10:54)
[2017-02-17] MEDS: MEMANTINE HCL 5 MG TABLET (UD) PO SCH ×2 (10:54→21:38)
[2017-02-17] MEDS: PANTOPRAZOLE 40 MG TABLET (FP) PO SCH ×2 (10:54→21:38)
[2017-02-17] MEDS: TAMSULOSIN HCL 0.4 MG CAP.ER.24H (FP) PO SCH (10:54)
[2017-02-17] MEDS: CLOTRIMAZOLE 1% CREAM 15 GM TUBE TP SCH ×2 (10:54→21:37)
[2017-02-17] MEDS: AZITHROMYCIN IVPB 500 MG in DEXTROSE 5%-WATER - 250 ML IVPB SCH (10:54)
[2017-02-17] MEDS: COLLAGENASE CLOSTRIDIUM HIST. 30 GRAMS TUBE TP SCH (10:55)
--- NOTE | 2017-02-17 11:18 | PATH ---
Surgical Pathology Report Patient Name: DAVID SOLIS [facility]. Rec. #: [id number] /Age/Gender: 1930 (Age: 86) / M Account: [id number] Location: [address] [place] [address] Taken: 02/16/2017 Received: 02/16/2017 Reported: 02/17/2017 Physicians: Marybel Roa D.O. Pushpinder Singh, M.D. Specimen(s) Received A: BX DUODENUM B: BX ANTRUM C: BX GE JUNCTION Clinical History Preoperative diagnosis: Melena, anemia Postoperative diagnosis: Antral ulcer, duodenitis Final Diagnosis A. DUODENUM, FIRST PORTION, BIOPSY: DUODENAL MUCOSA WITH MILD NONSPECIFIC CHRONIC DUODENITIS. NO ADENOMATOUS CHANGE IDENTIFIED. NO HISTOLOGIC EVIDENCE OF GLUTEN SENSITIVE ENTEROPATHY (CELIAC SPRUE) IDENTIFIED. B. STOMACH, ANTRUM, BIOPSY: GASTRIC ANTRAL AND DUODENAL TYPE MUCOSA WITH FOCAL ULCERATION AND ASSOCIATED CHRONIC INFLAMMATION. NO DYSPLASIA IDENTIFIED. IMMUNOSTAIN FOR H. PYLORI IS NEGATIVE. C. GE JUNCTION, BIOPSY: GASTRIC MUCOSA WITH CHRONIC INFLAMMATION. NO INTESTINAL METAPLASIA IDENTIFIED (NO ARCHULETA'S IDENTIFIED). Electronically Signed Demetrius Ernandez M.D. Gross Description A. Received in formalin, labeled "biopsy first portion of duodenum" are 3 cagle, irregular portions of soft tissue with ranging from 0.1-0.2 cm. in greatest dimension. The specimens are submitted in toto in one cassette. B. Received in formalin, labeled "biopsy antrum/antral ulcer" are 4 cagle, irregular portions of soft tissue ranging from 0.1-0.2 cm. in greatest dimension. The specimens are submitted in toto in one cassette. C. Received in formalin, labeled "biopsy GE junction" is a cagle, irregular portion of soft tissue measuring 0.3 cm. in greatest dimension. The specimen is submitted in toto in one cassette. 02/16/201702/16/2017
[2017-02-17 11:19] LABS: ALBUMIN 1.7 g/dl (3.4-5.0); ANION GAP 7 (8-16); BILIRUBIN,TOTAL 0.5 mg/dL (0.2-1.0); BLOOD UREA NITROGEN 19 mg/dL (7-18); CALCIUM 7.9 mg/dL (8.5-10.1); CHLORIDE 114 mmol/L (98-107); CO2 25 mmol/L (21-32); CREATININE 1.2 mg/dL (0.7-1.3); GLUCOSE,RANDOM 88 mg/dL (74-106); SGOT/AST 85 U/L (15-37); SGPT/ALT 96 U/L (12-78); SODIUM 146 mmol/L (136-145)
[2017-02-17 11:20] LABS: ALK PHOS 73 U/L (45-117); TOT PROT 5.7 g/dl (6.4-8.2)
[2017-02-17] MEDS: DEXTROSE 5%-WATER - 1,000 ML IV SCH ×2 (11:20→21:34)
--- NOTE | 2017-02-17 12:33 | PN ---
Progress Note (short form) - Note Progress Note: awake/ comfortable no complains s/p egd eating ok Vital Signs Temp 98.3 F 02/17/17 10:00 Pulse 93 H 02/17/17 10:00 Resp 20 02/17/17 10:00 BP 127/72 02/17/17 10:00 Pulse Ox 98 02/17/17 09:00 Intake & Output 02/16/17 02/17/17 02/17/17 23:59 11:59 23:59 Intake Total 565 Balance 565 Intake: IV 200 Oral 365 Other: Voiding Method Incontinent Incontinent # Unmeasured Voids Void 3 2 Bowel Movement Yes Yes Active Medications Acetaminophen (Tylenol -) 650 mg PO Q6H PRN PRN Reason: FEVER OR PAIN Last Admin: 02/13/17 22:28 Dose: 650 mg Albuterol Sulfate (Ventolin 0.083% Nebulizer Soln -) 1 amp NEB Q4H PRN PRN Reason: SHORT OF BREATH/WHEEZING Last Admin: 02/16/17 06:30 Dose: 1 amp Atorvastatin Calcium (Lipitor -) 10 mg PO [facility] Last Admin: 02/16/17 23:04 Dose: 10 mg Clotrimazole (Lotrimin 1% Cream -) 1 applic TP BID [facility] Last Admin: 02/17/17 10:54 Dose: 1 applic Collagenase (Santyl -) 1 applic TP DAILY [facility] Last Admin: 02/17/17 10:55 Dose: Not Given Donepezil HCl (Aricept -) 5 mg PO [facility] Last Admin: 02/16/17 23:04 Dose: 5 mg Azithromycin 500 mg/ Dextrose 250 mls @ 250 mls/hr IVPB DAILY [facility] Last Admin: 02/17/17 10:54 Dose: 250 mls/hr CEFTRIAXONE 1 G/50 ML PREMIX (Ceftriaxone 1 Gm-D5w Bag) 50 mls @ 100 mls/hr IVPB DAILY [facility] Last Admin: 02/17/17 10:54 Dose: 100 mls/hr Dextrose (D5w -) 1,000 mls @ 100 mls/hr IV ASDIR [facility] Last Admin: 02/17/17 11:20 Dose: 100 mls/hr Memantine (Namenda -) 5 mg PO BID [facility] Last Admin: 02/17/17 10:54 Dose: 5 mg Metoprolol Tartrate (Lopressor -) 50 mg PO DAILY [facility] Last Admin: 02/17/17 10:54 Dose: 50 mg Mirtazapine (Remeron -) 15 mg PO HS [facility] Last Admin: 02/16/17 23:05 Dose: 15 mg Pantoprazole Sodium (Protonix -) 40 mg PO BID [facility] Last Admin: 02/17/17 10:54 Dose: 40 mg Tamsulosin HCl (Flomax -) 0.4 mg PO DAILY@0830 [facility] Last Admin: 02/17/17 10:54 Dose: 0.4 mg CBC, BMP 02/17/17 10:25 02/17/17 10:25 u/s - liver - noted Physical Exam. awake/ comfortable. no distress. lungs- Diminished at bases cvs- s1, s2 rrr abd - soft/ non tender ext- no edema neuro- awake- ASSESSMENT/PLAN: GI Bleed pneumonia Acute renal failure- better hypernatremia dementia Plan antibiotics Continue present care monitor labs monitor for gi bleed will follow reddness on back- decubitis precautions no santyl frequent change of position Problem List - Problems (1) Dementia Code(s): F03.90 - UNSPECIFIED DEMENTIA WITHOUT BEHAVIORAL DISTURBANCE (2) Fall Code(s): W19.XXXA - UNSPECIFIED FALL, INITIAL ENCOUNTER Qualifiers: Encounter type: initial encounter Qualified Code(s): W19.XXXA - Unspecified fall, initial encounter (3) Syncope Code(s): R55 - SYNCOPE AND COLLAPSE Qualifiers: Syncope type: unspecified Qualified Code(s): R55 - Syncope and collapse (4) Diabetes mellitus Code(s): E11.9 - TYPE 2 DIABETES MELLITUS WITHOUT COMPLICATIONS (5) Urinary retention due to benign prostatic hyperplasia Code(s): N40.1 - BENIGN PROSTATIC HYPERPLASIA WITH LOWER URINARY TRACT SYMP; R33.8 - OTHER RETENTION OF URINE
--- NOTE | 2017-02-17 16:10 | PN ---
GI Progress Note Subjective: GI NOte: NO adverse reactions to EGD during which a duodenal ulcer was found to be the source of his bleeding and likely the syncope. Denies pain - Objective Vital Signs: Vital Signs Temperature 98.3 F 02/17/17 10:00 Pulse Rate 93 H 02/17/17 10:00 Respiratory Rate 20 02/17/17 10:00 Blood Pressure 127/72 02/17/17 10:00 O2 Sat by Pulse Oximetry (%) 98 02/17/17 09:00 Laboratory Tests 02/16/17 02/17/17 06:00 10:25 Hgb 8.1 L 8.8 L Constitutional: No Distress ...Auscultate: Yes: Normoactive Bowel Sounds ...Palpate: Yes: Soft, Other (nontender) Labs: CBC, BMP 02/17/17 10:25 02/17/17 10:25 INR, PTT INR 1.24 (0.82-1.09) H 02/14/17 07:45 Assessment/Plan Continue PPI Maalox q6h Avoid NSAIDs Problem List - Problems (1) Gastrointestinal hemorrhage with melena Code(s): K92.1 - MELENA (2) Anemia Code(s): D64.9 - ANEMIA, UNSPECIFIED Qualifiers: Other causes of anemia: acute posthemorrhagic (3) Hypernatremia Code(s): E87.0 - HYPEROSMOLALITY AND HYPERNATREMIA (4) Dehydration with hypernatremia Code(s): E87.0 - HYPEROSMOLALITY AND HYPERNATREMIA (5) Acute prerenal azotemia Code(s): R79.89 - OTHER SPECIFIED ABNORMAL FINDINGS OF BLOOD CHEMISTRY (6) Hepatitis Code(s): K75.9 - INFLAMMATORY LIVER DISEASE, UNSPECIFIED (7) Duodenal ulcer Code(s): K26.9 - DUODENAL ULCER, UNSP ACUTE OR CHRONIC, W/O HEMOR OR PERF
[2017-02-17] MEDS ORDERED: MAG HYDROX/AL HYDROX/SIMETH 30 ML UNIT-DOSE CUP PO SCH (16:15)
[2017-02-17] MEDS: MAG HYDROX/AL HYDROX/SIMETH 30 ML UNIT-DOSE CUP PO SCH (17:59)
[2017-02-17] MEDS: DONEPEZIL HCL 5 MG TABLET (FP) PO SCH (21:35)
[2017-02-17] MEDS: ATORVASTATIN CA 10 MG TABLET (FP) PO SCH (21:36)
[2017-02-17] MEDS ORDERED: PT OWN MED DRAWER 7, Y5N ONE (21:37)
[2017-02-17] MEDS: MIRTAZAPINE 15 MG TABLET (FP) PO SCH (21:38)
[2017-02-17] MEDS: ALBUTEROL SO4 0.083% IH SOL 2.5 MG/3 ML VIAL.NEB. NEB PRN (22:47)
[2017-02-18] MEDS: MAG HYDROX/AL HYDROX/SIMETH 30 ML UNIT-DOSE CUP PO SCH ×4 (01:06→18:35)
[2017-02-18 06:06] LABS: HBSAG SCREEN Negative (Negative); HEP A AB, IGM Negative (Negative); HEP B CORE AB, TOT Negative (Negative)
[2017-02-18 08:45] LABS: BASO % 0.4 % (0-2.0); EOS % 1.7 % (0-4.5); HEMATOCRIT 24.5 % (35.4-49); LYMPH % 16.8 % (8-40); MCH 27.6 pg (25.7-33.7); MCHC 32.8 g/dl (32.0-35.9); MEAN CELL VOLUME 84.1 fl (80-96); MONO % 4.9 % (3.8-10.2); NEUT % 76.2 % (42.8-82.8); PLATELET COUNT 282 K/MM3 (134-434); RBC 2.92 M/mm3 (4.00-5.60); RDW 15.1 % (11.9-15.9); WHITE BLOOD COUNT 5.7 K/mm3 (4.0-10.0)
[2017-02-18] MEDS: TAMSULOSIN HCL 0.4 MG CAP.ER.24H (FP) PO SCH (09:03)
[2017-02-18 09:05] LABS: CHLORIDE 109 mmol/L (98-107); POTASSIUM 3.7 mmol/L (3.5-5.1); SODIUM 143 mmol/L (136-145)
[2017-02-18] MEDS ORDERED: PT OWN MED DRAWER 7, Y5N ONE (09:21)
[2017-02-18] MEDS: PANTOPRAZOLE 40 MG TABLET (FP) PO SCH ×2 (09:31→09:38)
[2017-02-18] MEDS: MEMANTINE HCL 5 MG TABLET (UD) PO SCH ×2 (09:31→21:27)
[2017-02-18] MEDS: METOPROLOL TARTRATE 50 MG TABLET (FP) PO SCH (09:31)
[2017-02-18] MEDS: CLOTRIMAZOLE 1% CREAM 15 GM TUBE TP SCH ×2 (09:31→21:27)
[2017-02-18] MEDS: CEFTRIAXONE 1 G/50 ML PREMIX 50 ML IVPB SCH (09:31)
[2017-02-18 09:39] LABS: ALBUMIN 1.7 g/dl (3.4-5.0); ALK PHOS 67 U/L (45-117); ANION GAP 8 (8-16); BILIRUBIN,TOTAL 0.4 mg/dL (0.2-1.0); BLOOD UREA NITROGEN 13 mg/dL (7-18); CALCIUM 7.7 mg/dL (8.5-10.1); CO2 26 mmol/L (21-32); GLUCOSE,RANDOM 113 mg/dL (74-106); SGOT/AST 45 U/L (15-37); SGPT/ALT 64 U/L (12-78); TOT PROT 5.5 g/dl (6.4-8.2)
[2017-02-18] MEDS: DEXTROSE 5%-WATER - 1,000 ML IV SCH (10:18)
--- NOTE | 2017-02-18 10:28 | PN ---
Progress Note (short form) - Note Progress Note: patient seen and examined comfortable No distress LFTs--improving No obvious bleeding--- still some dark stools Afebrile follow-up chest x-ray--- Shows improvement Vital Signs Temp 98 F 02/18/17 09:27 Pulse 24 L 02/18/17 09:27 Resp 89 H 02/18/17 09:27 BP 118/58 02/18/17 09:27 Pulse Ox 98 02/17/17 21:00 Intake & Output 02/17/17 02/17/17 02/18/17 11:59 23:59 11:59 Intake Total 1715 1250 Balance 1715 1250 Intake: IV 1000 1200 D5w - 1,000 ml @ 100 mls/ 1000 1200 hr IV [facility] Rx#: [id number] IVPB 350 50 Oral 365 Other: Voiding Method Incontinent Incontinent # Unmeasured Voids Void 2 1 2 Bowel Movement Yes Yes Yes # Bowel Movements 3 1 Active Medications Acetaminophen (Tylenol -) 650 mg PO Q6H PRN PRN Reason: FEVER OR PAIN Last Admin: 02/13/17 22:28 Dose: 650 mg Al Hydroxide/Mg Hydroxide (Mylanta Oral Suspension -) 30 ml PO Q6HPO [facility] Last Admin: 02/18/17 06:15 Dose: 30 ml Albuterol Sulfate (Ventolin 0.083% Nebulizer Soln -) 1 amp NEB Q4H PRN PRN Reason: SHORT OF BREATH/WHEEZING Last Admin: 02/17/17 22:47 Dose: 1 amp Atorvastatin Calcium (Lipitor -) 10 mg PO [facility] Last Admin: 02/17/17 21:36 Dose: Not Given Clotrimazole (Lotrimin 1% Cream -) 1 applic TP BID [facility] Last Admin: 02/18/17 09:31 Dose: 1 applic Donepezil HCl (Aricept -) 5 mg PO [facility] Last Admin: 02/17/17 21:35 Dose: Not Given Azithromycin 500 mg/ Dextrose 250 mls @ 250 mls/hr IVPB DAILY [facility] Last Admin: 02/17/17 10:54 Dose: 250 mls/hr CEFTRIAXONE 1 G/50 ML PREMIX (Ceftriaxone 1 Gm-D5w Bag) 50 mls @ 100 mls/hr IVPB DAILY [facility] Last Admin: 02/18/17 09:31 Dose: 100 mls/hr Dextrose (D5w -) 1,000 mls @ 100 mls/hr IV [facility] Last Admin: 02/18/17 10:18 Dose: 100 mls/hr Memantine (Namenda -) 5 mg PO BID [facility] Last Admin: 02/18/17 09:31 Dose: 5 mg Metoprolol Tartrate (Lopressor -) 50 mg PO DAILY [facility] Last Admin: 02/18/17 09:31 Dose: 50 mg Mirtazapine (Remeron -) 15 mg PO HS [facility] Last Admin: 02/17/17 21:38 Dose: Not Given Pantoprazole Sodium (Protonix -) 40 mg PO BID [facility] Last Admin: 02/18/17 09:38 Dose: Not Given Tamsulosin HCl (Flomax -) 0.4 mg PO DAILY@0830 [facility] Last Admin: 02/18/17 09:03 Dose: 0.4 mg CBC, BMP 02/18/17 07:05 02/18/17 07:05 Physical Exam. awake/ comfortable. no distress. lungs- Diminished at bases cvs- s1, s2 rrr abd - soft/ non tender ext- no edema neuro- awake- ASSESSMENT/PLAN: GI Bleed pneumonia Acute renal failure- better--back to baseline hypernatremia---resolved dementia Plan antibiotics Continue present care monitor labs monitor for gi bleed will follow eating better Discontinue fluids GI to follow Discharge planning If remains stable--anticipate discharge in 1-2 days on by mouth antibiotics Problem List - Problems (1) Dementia Code(s): F03.90 - UNSPECIFIED DEMENTIA WITHOUT BEHAVIORAL DISTURBANCE (2) Fall Code(s): W19.XXXA - UNSPECIFIED FALL, INITIAL ENCOUNTER Qualifiers: Encounter type: initial encounter Qualified Code(s): W19.XXXA - Unspecified fall, initial encounter (3) Syncope Code(s): R55 - SYNCOPE AND COLLAPSE Qualifiers: Syncope type: unspecified Qualified Code(s): R55 - Syncope and collapse (4) Diabetes mellitus Code(s): E11.9 - TYPE 2 DIABETES MELLITUS WITHOUT COMPLICATIONS (5) Urinary retention due to benign prostatic hyperplasia Code(s): N40.1 - BENIGN PROSTATIC HYPERPLASIA WITH LOWER URINARY TRACT SYMP; R33.8 - OTHER RETENTION OF URINE
[2017-02-18] MEDS: AZITHROMYCIN IVPB 500 MG in DEXTROSE 5%-WATER - 250 ML IVPB SCH (10:46)
[2017-02-18] MEDS: PANTOPRAZOLE SOD 40 MG SUSPENSION PACKET PO SCH ×2 (11:38→21:26)
--- NOTE | 2017-02-18 13:57 | PN ---
GI Progress Note Subjective: GI Note: A bit more confused today. Hb down to 8 but stool is finally brown. LFTs are normalizing. - Objective Vital Signs: Vital Signs Temperature 98 F 02/18/17 09:27 Pulse Rate 89 02/18/17 09:27 Respiratory Rate 24 02/18/17 09:27 Blood Pressure 118/58 02/18/17 09:27 O2 Sat by Pulse Oximetry (%) 98 02/17/17 21:00 Laboratory Tests 02/16/17 02/16/17 02/17/17 06:00 06:00 10:25 Hgb 8.8 L AST 187 H ALT 131 H Hepatitis C Antibody 0.1 02/17/17 02/18/17 10:25 07:05 Hgb 8.0 L AST 85 H D ALT 96 H D Hepatitis C Antibody Laboratory Tests 02/05/17 02/11/17 02/16/17 05:48 08:11 06:00 Iron Saturation 32 Ferritin 1917.756 H Total Bilirubin 0.3 D AST 187 H ALT 131 H Alkaline Phosphatase 66 Albumin Hep A IgM Ab Confirm Hepatitis A Ab Total Hep Bs Antigen Hep Bs Antibody Hep B Core Total Ab Hepatitis C Antibody 02/16/17 02/17/17 02/18/17 06:00 10:25 07:05 Iron Saturation Ferritin Total Bilirubin 0.4 AST 85 H D 45 H D ALT 96 H D 64 D Alkaline Phosphatase 73 67 Albumin 1.7 L Hep A IgM Ab Confirm Negative Hepatitis A Ab Total Positive H Hep Bs Antigen Negative Hep Bs Antibody Non reactive Hep B Core Total Ab Negative Hepatitis C Antibody 0.1 Constitutional: No Distress ...Auscultate: Yes: Normoactive Bowel Sounds ...Palpate: Yes: Soft, Other (nontender) Labs: CBC, BMP 02/18/17 07:05 02/18/17 07:05 INR, PTT INR 1.24 (0.82-1.09) H 02/14/17 07:45 Problem List - Problems (1) Gastrointestinal hemorrhage with melena Assessment/Plan: Duodenal ulcer bleeding has appeared to stop. Continue PPI Code(s): K92.1 - MELENA (2) Anemia Code(s): D64.9 - ANEMIA, UNSPECIFIED Qualifiers: Other causes of anemia: acute posthemorrhagic (3) Hypernatremia Code(s): E87.0 - HYPEROSMOLALITY AND HYPERNATREMIA (4) Dehydration with hypernatremia Code(s): E87.0 - HYPEROSMOLALITY AND HYPERNATREMIA (5) Acute prerenal azotemia Code(s): R79.89 - OTHER SPECIFIED ABNORMAL FINDINGS OF BLOOD CHEMISTRY (6) Hepatitis Assessment/Plan: Etiology of elevated LFTs remains unclear. NO obvious chronic liver diseases. Await liver sonogram Code(s): K75.9 - INFLAMMATORY LIVER DISEASE, UNSPECIFIED (7) Duodenal ulcer Code(s): K26.9 - DUODENAL ULCER, UNSP ACUTE OR CHRONIC, W/O HEMOR OR PERF
--- NOTE | 2017-02-18 19:37 | PN ---
Progress Note, Physician Chief Complaint: Pt is more confused today; he does not follow commands; mumbles incoherent verbal replies. History of Present Illness: The patient is an 86 year old white male with a history of dementia, UTI, BBH, CVA, HTN, Anemia who presents from [facility] for evaluation following a syncopal episode. The patient is a poor historian and the shelter was contacted for the history. The patient had a ureteral stent placed on 01/31/17. They report that the patient had an unwitnessed fall earlier today at 3am. They report that the patient then had a syncopal episode after an hour of PT prompting his presentation to the ED today. It is unclear if the patient experienced any head trauma. The patient denies any complaints at this time besides some mild generalized weakness and does not recall the event. He denies fevers, chills, headache, SOB, chest pain, abdominal pain. - Current Medication List Current Medications: Active Medications Acetaminophen (Tylenol -) 650 mg PO Q6H PRN PRN Reason: FEVER OR PAIN Last Admin: 02/13/17 22:28 Dose: 650 mg Al Hydroxide/Mg Hydroxide (Mylanta Oral Suspension -) 30 ml PO Q6HPO [facility] Last Admin: 02/18/17 18:35 Dose: 30 ml Albuterol Sulfate (Ventolin 0.083% Nebulizer Soln -) 1 amp NEB Q4H PRN PRN Reason: SHORT OF BREATH/WHEEZING Last Admin: 02/17/17 22:47 Dose: 1 amp Atorvastatin Calcium (Lipitor -) 10 mg PO HS [facility] Last Admin: 02/17/17 21:36 Dose: Not Given Clotrimazole (Lotrimin 1% Cream -) 1 applic TP BID [facility] Last Admin: 02/18/17 09:31 Dose: 1 applic Donepezil HCl (Aricept -) 5 mg PO HS [facility] Last Admin: 02/17/17 21:35 Dose: Not Given Azithromycin 500 mg/ Dextrose 250 mls @ 250 mls/hr IVPB DAILY [facility] Last Admin: 02/18/17 10:46 Dose: 250 mls/hr CEFTRIAXONE 1 G/50 ML PREMIX (Ceftriaxone 1 Gm-D5w Bag) 50 mls @ 100 mls/hr IVPB DAILY [facility] Last Admin: 02/18/17 09:31 Dose: 100 mls/hr Memantine (Namenda -) 5 mg PO BID [facility] Last Admin: 02/18/17 09:31 Dose: 5 mg Metoprolol Tartrate (Lopressor -) 50 mg PO DAILY [facility] Last Admin: 02/18/17 09:31 Dose: 50 mg Mirtazapine (Remeron -) 15 mg PO HS [facility] Last Admin: 02/17/17 21:38 Dose: Not Given Pantoprazole Sodium (Protonix Packets For Oral Suspension -) 40 mg PO BID [facility] Last Admin: 02/18/17 11:38 Dose: 40 mg Tamsulosin HCl (Flomax -) 0.4 mg PO DAILY@0830 [facility] Last Admin: 02/18/17 09:03 Dose: 0.4 mg - Objective Vital Signs: Vital Signs Temperature 98.2 F 02/18/17 14:59 Pulse Rate 88 02/18/17 14:59 Respiratory Rate 20 02/18/17 14:59 Blood Pressure 122/66 02/18/17 14:59 O2 Sat by Pulse Oximetry (%) 98 02/17/17 21:00 Constitutional: Yes: Anxious Eyes: Yes: WNL HENT: Yes: WNL Neck: Yes: WNL Cardiovascular: Yes: Murmur, S1, S2 Respiratory: Yes: Regular Gastrointestinal: Yes: Soft Genitourinary: No: Anuria Breast(s): Yes: WNL Musculoskeletal: Yes: Muscle Weakness Extremities: Yes: Cool Edema: No Peripheral Pulses WNL: No Peripheral Pulses: Left Doralis Pedis: 1+, Right Dorsalis Pedis: 1+ Neurological: Yes: Weakness Psychiatric: Yes: Other (dementia) Labs: CBC, BMP 02/18/17 07:05 02/18/17 07:05 INR, PTT INR 1.24 (0.82-1.09) H 02/14/17 07:45 Abnormal Lab Results 02/18/17 02/18/17 07:05 07:05 RBC 2.92 L Hgb 8.0 L Hct 24.5 L Chloride 109 H Random Glucose 113 H D Calcium 7.7 L AST 45 H D Total Protein 5.5 L Albumin 1.7 L - ....Imaging Chest X-ray: Image Reviewed (small left pleural effusion) Problem List - Problems (1) Dementia Assessment/Plan: f/u with psychiatry,neurology. periods of further confusion. Code(s): F03.90 - UNSPECIFIED DEMENTIA WITHOUT BEHAVIORAL DISTURBANCE (2) Anemia Assessment/Plan: no further bleeding from EGD-diagnosed duodenal ulcer, but fall in Hb today. F/ u with GI, hematology. Code(s): D64.9 - ANEMIA, UNSPECIFIED Qualifiers: Other causes of anemia: acute posthemorrhagic (3) Fall Code(s): W19.XXXA - UNSPECIFIED FALL, INITIAL ENCOUNTER Qualifiers: Encounter type: initial encounter Qualified Code(s): W19.XXXA - Unspecified fall, initial encounter (4) Syncope Assessment/Plan: orthostatic VS EKG: normal study. CXR: no acute changes. Normal LVEF on ECHO; no significant . Maintain hydration. Carotid US: no significant disease. Ct head: no acute pathology. Hx dementia. Duodenal ulcer with periods of bleeding-->anemia may be etiology. Code(s): R55 - SYNCOPE AND COLLAPSE Qualifiers: Syncope type: unspecified Qualified Code(s): R55 - Syncope and collapse (5) Diabetes mellitus Code(s): E11.9 - TYPE 2 DIABETES MELLITUS WITHOUT COMPLICATIONS (6) Hypoalbuminemia Assessment/Plan: poor nutritional status. Code(s): E88.09 - OTH DISORDERS OF PLASMA-PROTEIN METABOLISM, NEC (7) Duodenal ulcer Assessment/Plan: bleeding under control, per GI. Code(s): K26.9 - DUODENAL ULCER, UNSP ACUTE OR CHRONIC, W/O HEMOR OR PERF (8) Elevated LFTs Assessment/Plan: GI w/u in progress; etiology as yet uncertain. Code(s): R79.89 - OTHER SPECIFIED ABNORMAL FINDINGS OF BLOOD CHEMISTRY
--- NOTE | 2017-02-18 19:37 | PN ---
Progress Note, Physician - Current Medication List Current Medications: Active Medications Acetaminophen (Tylenol -) 650 mg PO Q6H PRN PRN Reason: FEVER OR PAIN Last Admin: 02/13/17 22:28 Dose: 650 mg Al Hydroxide/Mg Hydroxide (Mylanta Oral Suspension -) 30 ml PO Q6HPO [facility] Last Admin: 02/18/17 18:35 Dose: 30 ml Albuterol Sulfate (Ventolin 0.083% Nebulizer Soln -) 1 amp NEB Q4H PRN PRN Reason: SHORT OF BREATH/WHEEZING Last Admin: 02/17/17 22:47 Dose: 1 amp Atorvastatin Calcium (Lipitor -) 10 mg PO HS [facility] Last Admin: 02/17/17 21:36 Dose: Not Given Clotrimazole (Lotrimin 1% Cream -) 1 applic TP BID [facility] Last Admin: 02/18/17 09:31 Dose: 1 applic Donepezil HCl (Aricept -) 5 mg PO [facility] Last Admin: 02/17/17 21:35 Dose: Not Given Azithromycin 500 mg/ Dextrose 250 mls @ 250 mls/hr IVPB DAILY [facility] Last Admin: 02/18/17 10:46 Dose: 250 mls/hr CEFTRIAXONE 1 G/50 ML PREMIX (Ceftriaxone 1 Gm-D5w Bag) 50 mls @ 100 mls/hr IVPB DAILY [facility] Last Admin: 02/18/17 09:31 Dose: 100 mls/hr Memantine (Namenda -) 5 mg PO BID [facility] Last Admin: 02/18/17 09:31 Dose: 5 mg Metoprolol Tartrate (Lopressor -) 50 mg PO DAILY [facility] Last Admin: 02/18/17 09:31 Dose: 50 mg Mirtazapine (Remeron -) 15 mg PO [facility] Last Admin: 02/17/17 21:38 Dose: Not Given Pantoprazole Sodium (Protonix Packets For Oral Suspension -) 40 mg PO BID [facility] Last Admin: 02/18/17 11:38 Dose: 40 mg Tamsulosin HCl (Flomax -) 0.4 mg PO DAILY@0830 [facility] Last Admin: 02/18/17 09:03 Dose: 0.4 mg - Objective Vital Signs: Vital Signs Temperature 98.2 F 02/18/17 14:59 Pulse Rate 88 02/18/17 14:59 Respiratory Rate 20 02/18/17 14:59 Blood Pressure 122/66 02/18/17 14:59 O2 Sat by Pulse Oximetry (%) 98 02/17/17 21:00 Labs: CBC, BMP 02/18/17 07:05 02/18/17 07:05 INR, PTT INR 1.24 (0.82-1.09) H 02/14/17 07:45 Problem List - Problems (1) Dementia Code(s): F03.90 - UNSPECIFIED DEMENTIA WITHOUT BEHAVIORAL DISTURBANCE (2) Anemia Code(s): D64.9 - ANEMIA, UNSPECIFIED Qualifiers: Other causes of anemia: acute posthemorrhagic (3) Fall Code(s): W19.XXXA - UNSPECIFIED FALL, INITIAL ENCOUNTER Qualifiers: Encounter type: initial encounter Qualified Code(s): W19.XXXA - Unspecified fall, initial encounter (4) Syncope Code(s): R55 - SYNCOPE AND COLLAPSE Qualifiers: Syncope type: unspecified Qualified Code(s): R55 - Syncope and collapse (5) Diabetes mellitus Code(s): E11.9 - TYPE 2 DIABETES MELLITUS WITHOUT COMPLICATIONS
--- NOTE | 2017-02-18 20:38 | PN ---
Progress Note, Physician - Current Medication List Current Medications: Active Medications Acetaminophen (Tylenol -) 650 mg PO Q6H PRN PRN Reason: FEVER OR PAIN Last Admin: 02/13/17 22:28 Dose: 650 mg Al Hydroxide/Mg Hydroxide (Mylanta Oral Suspension -) 30 ml PO Q6HPO [facility] Last Admin: 02/18/17 18:35 Dose: 30 ml Albuterol Sulfate (Ventolin 0.083% Nebulizer Soln -) 1 amp NEB Q4H PRN PRN Reason: SHORT OF BREATH/WHEEZING Last Admin: 02/17/17 22:47 Dose: 1 amp Atorvastatin Calcium (Lipitor -) 10 mg PO HS [facility] Last Admin: 02/17/17 21:36 Dose: Not Given Clotrimazole (Lotrimin 1% Cream -) 1 applic TP BID [facility] Last Admin: 02/18/17 09:31 Dose: 1 applic Donepezil HCl (Aricept -) 5 mg PO [facility] Last Admin: 02/17/17 21:35 Dose: Not Given Azithromycin 500 mg/ Dextrose 250 mls @ 250 mls/hr IVPB DAILY [facility] Last Admin: 02/18/17 10:46 Dose: 250 mls/hr CEFTRIAXONE 1 G/50 ML PREMIX (Ceftriaxone 1 Gm-D5w Bag) 50 mls @ 100 mls/hr IVPB DAILY [facility] Last Admin: 02/18/17 09:31 Dose: 100 mls/hr Memantine (Namenda -) 5 mg PO BID [facility] Last Admin: 02/18/17 09:31 Dose: 5 mg Metoprolol Tartrate (Lopressor -) 50 mg PO DAILY [facility] Last Admin: 02/18/17 09:31 Dose: 50 mg Mirtazapine (Remeron -) 15 mg PO [facility] Last Admin: 02/17/17 21:38 Dose: Not Given Pantoprazole Sodium (Protonix Packets For Oral Suspension -) 40 mg PO BID [facility] Last Admin: 02/18/17 11:38 Dose: 40 mg Tamsulosin HCl (Flomax -) 0.4 mg PO DAILY@0830 [facility] Last Admin: 02/18/17 09:03 Dose: 0.4 mg - Objective Vital Signs: Vital Signs Temperature 98.2 F 02/18/17 14:59 Pulse Rate 88 02/18/17 14:59 Respiratory Rate 20 02/18/17 14:59 Blood Pressure 122/66 02/18/17 14:59 O2 Sat by Pulse Oximetry (%) 96 02/18/17 10:00 Labs: CBC, BMP 02/18/17 07:05 02/18/17 07:05 INR, PTT INR 1.24 (0.82-1.09) H 02/14/17 07:45 Problem List - Problems (1) Dementia Code(s): F03.90 - UNSPECIFIED DEMENTIA WITHOUT BEHAVIORAL DISTURBANCE (2) Anemia Code(s): D64.9 - ANEMIA, UNSPECIFIED Qualifiers: Other causes of anemia: acute posthemorrhagic (3) Fall Code(s): W19.XXXA - UNSPECIFIED FALL, INITIAL ENCOUNTER Qualifiers: Encounter type: initial encounter Qualified Code(s): W19.XXXA - Unspecified fall, initial encounter (4) Syncope Code(s): R55 - SYNCOPE AND COLLAPSE Qualifiers: Syncope type: unspecified Qualified Code(s): R55 - Syncope and collapse (5) Diabetes mellitus Code(s): E11.9 - TYPE 2 DIABETES MELLITUS WITHOUT COMPLICATIONS
--- NOTE | 2017-02-18 20:41 | PN ---
Progress Note, Physician - Current Medication List Current Medications: Active Medications Acetaminophen (Tylenol -) 650 mg PO Q6H PRN PRN Reason: FEVER OR PAIN Last Admin: 02/13/17 22:28 Dose: 650 mg Al Hydroxide/Mg Hydroxide (Mylanta Oral Suspension -) 30 ml PO Q6HPO [facility] Last Admin: 02/18/17 18:35 Dose: 30 ml Albuterol Sulfate (Ventolin 0.083% Nebulizer Soln -) 1 amp NEB Q4H PRN PRN Reason: SHORT OF BREATH/WHEEZING Last Admin: 02/17/17 22:47 Dose: 1 amp Atorvastatin Calcium (Lipitor -) 10 mg PO HS [facility] Last Admin: 02/17/17 21:36 Dose: Not Given Clotrimazole (Lotrimin 1% Cream -) 1 applic TP BID [facility] Last Admin: 02/18/17 09:31 Dose: 1 applic Donepezil HCl (Aricept -) 5 mg PO [facility] Last Admin: 02/17/17 21:35 Dose: Not Given Azithromycin 500 mg/ Dextrose 250 mls @ 250 mls/hr IVPB DAILY [facility] Last Admin: 02/18/17 10:46 Dose: 250 mls/hr CEFTRIAXONE 1 G/50 ML PREMIX (Ceftriaxone 1 Gm-D5w Bag) 50 mls @ 100 mls/hr IVPB DAILY [facility] Last Admin: 02/18/17 09:31 Dose: 100 mls/hr Memantine (Namenda -) 5 mg PO BID [facility] Last Admin: 02/18/17 09:31 Dose: 5 mg Metoprolol Tartrate (Lopressor -) 50 mg PO DAILY [facility] Last Admin: 02/18/17 09:31 Dose: 50 mg Mirtazapine (Remeron -) 15 mg PO [facility] Last Admin: 02/17/17 21:38 Dose: Not Given Pantoprazole Sodium (Protonix Packets For Oral Suspension -) 40 mg PO BID [facility] Last Admin: 02/18/17 11:38 Dose: 40 mg Tamsulosin HCl (Flomax -) 0.4 mg PO DAILY@0830 [facility] Last Admin: 02/18/17 09:03 Dose: 0.4 mg - Objective Vital Signs: Vital Signs Temperature 98.2 F 02/18/17 14:59 Pulse Rate 88 02/18/17 14:59 Respiratory Rate 20 02/18/17 14:59 Blood Pressure 122/66 02/18/17 14:59 O2 Sat by Pulse Oximetry (%) 96 02/18/17 10:00 Labs: CBC, BMP 02/18/17 07:05 02/18/17 07:05 INR, PTT INR 1.24 (0.82-1.09) H 02/14/17 07:45 Problem List - Problems (1) Dementia Code(s): F03.90 - UNSPECIFIED DEMENTIA WITHOUT BEHAVIORAL DISTURBANCE (2) Anemia Code(s): D64.9 - ANEMIA, UNSPECIFIED Qualifiers: Other causes of anemia: acute posthemorrhagic (3) Fall Code(s): W19.XXXA - UNSPECIFIED FALL, INITIAL ENCOUNTER Qualifiers: Encounter type: initial encounter Qualified Code(s): W19.XXXA - Unspecified fall, initial encounter (4) Syncope Code(s): R55 - SYNCOPE AND COLLAPSE Qualifiers: Syncope type: unspecified Qualified Code(s): R55 - Syncope and collapse (5) Diabetes mellitus Code(s): E11.9 - TYPE 2 DIABETES MELLITUS WITHOUT COMPLICATIONS
[2017-02-18] MEDS: DONEPEZIL HCL 5 MG TABLET (FP) PO SCH (21:26)
[2017-02-18] MEDS: MIRTAZAPINE 15 MG TABLET (FP) PO SCH (21:26)
[2017-02-18] MEDS: ATORVASTATIN CA 10 MG TABLET (FP) PO SCH (21:26)
[2017-02-19] MEDS: MAG HYDROX/AL HYDROX/SIMETH 30 ML UNIT-DOSE CUP PO SCH ×4 (02:12→17:33)
[2017-02-19 08:24] LABS: BASO % 0.4 % (0-2.0); EOS % 2.2 % (0-4.5); HEMATOCRIT 25.4 % (35.4-49); HEMOGLOBIN 8.2 GM/dL (11.7-16.9); LYMPH % 16.6 % (8-40); MCH 27.6 pg (25.7-33.7); MCHC 32.4 g/dl (32.0-35.9); MEAN CELL VOLUME 85.2 fl (80-96); MEAN PLT VOLUME 8.1 fl (7.5-11.1); NEUT % 75.8 % (42.8-82.8); PLATELET COUNT 307 K/MM3 (134-434); RBC 2.98 M/mm3 (4.00-5.60); RDW 14.8 % (11.9-15.9); WHITE BLOOD COUNT 6.6 K/mm3 (4.0-10.0)
[2017-02-19] MEDS: TAMSULOSIN HCL 0.4 MG CAP.ER.24H (FP) PO SCH (08:30)
[2017-02-19 08:56] LABS: ALBUMIN 1.7 g/dl (3.4-5.0); ANION GAP 5 (8-16); BLOOD UREA NITROGEN 13 mg/dL (7-18); CALCIUM 7.8 mg/dL (8.5-10.1); CHLORIDE 112 mmol/L (98-107); CO2 30 mmol/L (21-32); POTASSIUM 3.9 mmol/L (3.5-5.1); SODIUM 147 mmol/L (136-145)
[2017-02-19 09:00] LABS: ALK PHOS 67 U/L (45-117); BILIRUBIN,TOTAL 0.3 mg/dL (0.2-1.0); CREATININE 1.2 mg/dL (0.7-1.3); GLUCOSE,RANDOM 85 mg/dL (74-106); SGOT/AST 32 U/L (15-37); SGPT/ALT 55 U/L (12-78); TOT PROT 5.4 g/dl (6.4-8.2)
[2017-02-19] MEDS: PANTOPRAZOLE SOD 40 MG SUSPENSION PACKET PO SCH ×2 (09:37→22:28)
[2017-02-19] MEDS: MEMANTINE HCL 5 MG TABLET (UD) PO SCH ×2 (09:38→22:28)
[2017-02-19] MEDS: AZITHROMYCIN IVPB 500 MG in DEXTROSE 5%-WATER - 250 ML IVPB SCH (09:38)
[2017-02-19] MEDS: METOPROLOL TARTRATE 50 MG TABLET (FP) PO SCH (09:38)
[2017-02-19] MEDS: CEFTRIAXONE 1 G/50 ML PREMIX 50 ML IVPB SCH (09:38)
[2017-02-19] MEDS: CLOTRIMAZOLE 1% CREAM 15 GM TUBE TP SCH ×2 (09:38→22:28)
[2017-02-19] MEDS: ALBUTEROL SO4 0.083% IH SOL 2.5 MG/3 ML VIAL.NEB. NEB PRN (11:19)
[2017-02-19] MEDS ORDERED: INSULIN (NOVOLOG) ASPART 100 UNITS/ML 10ML VIAL ONE (12:02)
--- NOTE | 2017-02-19 12:55 | PN ---
Progress Note (short form) - Note Progress Note: awake/ comfortable eating ok better denies pain lfts back to normal sodium again rise a little Vital Signs Temp 97.6 F 02/19/17 09:36 Pulse 70 02/19/17 09:36 Resp 18 02/19/17 09:36 BP 114/75 02/19/17 09:36 Pulse Ox 98 02/18/17 21:00 Intake & Output 02/18/17 02/19/17 02/19/17 23:59 11:59 23:59 Intake Total 700 100 Balance 700 100 Intake: IV 300 D5w - 1,000 ml @ 100 mls/ 300 hr IV ASDIR [facility] Rx#: [id number] Oral 400 100 Other: Voiding Method Incontinent Incontinent # Unmeasured Voids Void 1 2 Bowel Movement Yes No # Bowel Movements 1 Active Medications Acetaminophen (Tylenol -) 650 mg PO Q6H PRN PRN Reason: FEVER OR PAIN Last Admin: 02/13/17 22:28 Dose: 650 mg Al Hydroxide/Mg Hydroxide (Mylanta Oral Suspension -) 30 ml PO Q6HPO [facility] Last Admin: 02/19/17 12:04 Dose: 30 ml Albuterol Sulfate (Ventolin 0.083% Nebulizer Soln -) 1 amp NEB Q4H PRN PRN Reason: SHORT OF BREATH/WHEEZING Last Admin: 02/19/17 11:19 Dose: 1 amp Atorvastatin Calcium (Lipitor -) 10 mg PO HS [facility] Last Admin: 02/18/17 21:26 Dose: 10 mg Clotrimazole (Lotrimin 1% Cream -) 1 applic TP BID [facility] Last Admin: 02/19/17 09:38 Dose: 1 applic Donepezil HCl (Aricept -) 5 mg PO [facility] Last Admin: 02/18/17 21:26 Dose: 5 mg Azithromycin 500 mg/ Dextrose 250 mls @ 250 mls/hr IVPB DAILY [facility] Last Admin: 02/19/17 09:38 Dose: 250 mls/hr CEFTRIAXONE 1 G/50 ML PREMIX (Ceftriaxone 1 Gm-D5w Bag) 50 mls @ 100 mls/hr IVPB DAILY [facility] Last Admin: 02/19/17 09:38 Dose: 100 mls/hr Dextrose/Sodium Chloride (D5-1/3ns+20 Meq Kcl -) 20 meq in 1,000 mls @ 83 mls/ hr IV ASDIR [facility] Memantine (Namenda -) 5 mg PO BID [facility] Last Admin: 02/19/17 09:38 Dose: 5 mg Metoprolol Tartrate (Lopressor -) 50 mg PO DAILY [facility] Last Admin: 02/19/17 09:38 Dose: 50 mg Mirtazapine (Remeron -) 15 mg PO HS [facility] Last Admin: 02/18/17 21:26 Dose: 15 mg Pantoprazole Sodium (Protonix Packets For Oral Suspension -) 40 mg PO BID [facility] Last Admin: 02/19/17 09:37 Dose: 40 mg Tamsulosin HCl (Flomax -) 0.4 mg PO DAILY@0830 [facility] Last Admin: 02/19/17 08:30 Dose: 0.4 mg CBC, BMP 02/19/17 07:45 02/19/17 07:45 Physical Exam. awake/ comfortable. no distress. lungs- Diminished at bases cvs- s1, s2 rrr abd - soft/ non tender ext- no edema neuro- awake- ASSESSMENT/PLAN: GI Bleed pneumonia Acute renal failure- better--back to baseline hypernatremia---dementia Plan antibiotics Continue present care monitor labs monitor for gi bleed eating better restart on mild hydration for -1-2 days Discharge planning if stable- anticipate d/c by tuesday. will follow Problem List - Problems (1) Dementia Code(s): F03.90 - UNSPECIFIED DEMENTIA WITHOUT BEHAVIORAL DISTURBANCE (2) Fall Code(s): W19.XXXA - UNSPECIFIED FALL, INITIAL ENCOUNTER Qualifiers: Encounter type: initial encounter Qualified Code(s): W19.XXXA - Unspecified fall, initial encounter (3) Syncope Code(s): R55 - SYNCOPE AND COLLAPSE Qualifiers: Syncope type: unspecified Qualified Code(s): R55 - Syncope and collapse (4) Diabetes mellitus Code(s): E11.9 - TYPE 2 DIABETES MELLITUS WITHOUT COMPLICATIONS (5) Urinary retention due to benign prostatic hyperplasia Code(s): N40.1 - BENIGN PROSTATIC HYPERPLASIA WITH LOWER URINARY TRACT SYMP; R33.8 - OTHER RETENTION OF URINE
[2017-02-19] MEDS ORDERED: D5-1/3NS+20 MEQ KCL - 20 MEQ/1,000 ML INFUS.BAG IV SCH (13:00)
[2017-02-19] MEDS: D5-1/2NS+20 MEQ KCL - 20 MEQ/1,000 ML INFUS.BAG IV SCH (18:24)
[2017-02-19] MEDS: ATORVASTATIN CA 10 MG TABLET (FP) PO SCH (22:28)
[2017-02-19] MEDS: MIRTAZAPINE 15 MG TABLET (FP) PO SCH (22:28)
[2017-02-19] MEDS: DONEPEZIL HCL 5 MG TABLET (FP) PO SCH (22:28)
[2017-02-20] MEDS: MAG HYDROX/AL HYDROX/SIMETH 30 ML UNIT-DOSE CUP PO SCH ×4 (00:25→17:43)
[2017-02-20] MEDS: CEFTRIAXONE 1 G/50 ML PREMIX 50 ML IVPB SCH (09:26)
[2017-02-20] MEDS: AZITHROMYCIN IVPB 500 MG in DEXTROSE 5%-WATER - 250 ML IVPB SCH (09:26)
[2017-02-20] MEDS: CLOTRIMAZOLE 1% CREAM 15 GM TUBE TP SCH ×2 (09:27→22:46)
[2017-02-20] MEDS: METOPROLOL TARTRATE 50 MG TABLET (FP) PO SCH (09:27)
[2017-02-20] MEDS: MEMANTINE HCL 5 MG TABLET (UD) PO SCH ×2 (09:27→22:46)
[2017-02-20] MEDS: TAMSULOSIN HCL 0.4 MG CAP.ER.24H (FP) PO SCH (09:27)
[2017-02-20] MEDS: PANTOPRAZOLE SOD 40 MG SUSPENSION PACKET PO SCH ×2 (09:27→22:45)
--- NOTE | 2017-02-20 11:58 | PN ---
Progress Note (short form) - Note Progress Note: pt seen/ examined awake/ comfortable eating ok mild cough + denies pain Vital Signs Temp 98.3 F 02/20/17 10:00 Pulse 70 02/20/17 10:00 Resp 20 02/20/17 10:00 BP 130/68 02/20/17 10:00 Pulse Ox 97 02/19/17 22:00 Intake & Output 02/19/17 02/19/17 02/20/17 11:59 23:59 11:59 Intake Total 100 700 996 Balance 100 700 996 Intake: IV 996 D5-1/2NS+20 MEQ KCL - 20 996 meq In 1,000 ml @ 83 mls/ hr IV ASDIR [facility] Rx#: [id number] IVPB 300 Oral 100 400 Other: Voiding Method Incontinent Incontinent # Unmeasured Voids Void 2 3 2 Bowel Movement No Yes: small Yes # Bowel Movements 2 Active Medications Acetaminophen (Tylenol -) 650 mg PO Q6H PRN PRN Reason: FEVER OR PAIN Last Admin: 02/13/17 22:28 Dose: 650 mg Al Hydroxide/Mg Hydroxide (Mylanta Oral Suspension -) 30 ml PO Q6HPO [facility] Last Admin: 02/20/17 06:32 Dose: Not Given Atorvastatin Calcium (Lipitor -) 10 mg PO [facility] Last Admin: 02/19/17 22:28 Dose: 10 mg Clotrimazole (Lotrimin 1% Cream -) 1 applic TP BID [facility] Last Admin: 02/20/17 09:27 Dose: 1 applic Donepezil HCl (Aricept -) 5 mg PO [facility] Last Admin: 02/19/17 22:28 Dose: 5 mg Azithromycin 500 mg/ Dextrose 250 mls @ 250 mls/hr IVPB DAILY [facility] Last Admin: 02/20/17 09:26 Dose: 250 mls/hr CEFTRIAXONE 1 G/50 ML PREMIX (Ceftriaxone 1 Gm-D5w Bag) 50 mls @ 100 mls/hr IVPB DAILY [facility] Last Admin: 02/20/17 09:26 Dose: 100 mls/hr Potassium Chloride/Dextrose/Sod Cl (D5-1/2ns+20 Meq Kcl -) 20 meq in 1,000 mls @ 83 mls/hr IV ASDIR [facility] Last Admin: 02/19/17 18:24 Dose: 83 mls/hr Memantine (Namenda -) 5 mg PO BID [facility] Last Admin: 02/20/17 09:27 Dose: 5 mg Metoprolol Tartrate (Lopressor -) 50 mg PO DAILY [facility] Last Admin: 02/20/17 09:27 Dose: 50 mg Mirtazapine (Remeron -) 15 mg PO HS [facility] Last Admin: 02/19/17 22:28 Dose: 15 mg Pantoprazole Sodium (Protonix Packets For Oral Suspension -) 40 mg PO BID [facility] Last Admin: 02/20/17 09:27 Dose: 40 mg Tamsulosin HCl (Flomax -) 0.4 mg PO DAILY@0830 [facility] Last Admin: 02/20/17 09:27 Dose: 0.4 mg CBC, BMP 02/19/17 07:45 02/19/17 07:45 Physical Exam. awake/ comfortable. no distress. lungs- Diminished at bases cvs- s1, s2 rrr abd - soft/ non tender ext- no edema neuro- awake- ASSESSMENT/PLAN: GI Bleed pneumonia Acute renal failure- better--back to baseline hypernatremia---dementia Plan Overall better. cxr - reviewed-- worsening of consolidation Continue antibiotics f/u cxr/ labs in am Continue present care monitor for gi bleed eating better restarted on mild hydration for -1-2 days Discharge planning if stable- anticipate d/c by tomorrow. will follow Problem List - Problems (1) Dementia Code(s): F03.90 - UNSPECIFIED DEMENTIA WITHOUT BEHAVIORAL DISTURBANCE (2) Fall Code(s): W19.XXXA - UNSPECIFIED FALL, INITIAL ENCOUNTER Qualifiers: Encounter type: initial encounter Qualified Code(s): W19.XXXA - Unspecified fall, initial encounter (3) Syncope Code(s): R55 - SYNCOPE AND COLLAPSE Qualifiers: Syncope type: unspecified Qualified Code(s): R55 - Syncope and collapse (4) Diabetes mellitus Code(s): E11.9 - TYPE 2 DIABETES MELLITUS WITHOUT COMPLICATIONS (5) Urinary retention due to benign prostatic hyperplasia Code(s): N40.1 - BENIGN PROSTATIC HYPERPLASIA WITH LOWER URINARY TRACT SYMP; R33.8 - OTHER RETENTION OF URINE
[2017-02-20] MEDS ORDERED: PT OWN MED DRAWER 7, Y5N ONE (22:44)
[2017-02-20] MEDS: ATORVASTATIN CA 10 MG TABLET (FP) PO SCH (22:46)
[2017-02-20] MEDS: DONEPEZIL HCL 5 MG TABLET (FP) PO SCH (22:46)
[2017-02-20] MEDS: MIRTAZAPINE 15 MG TABLET (FP) PO SCH (22:46)
[2017-02-21] MEDS: MAG HYDROX/AL HYDROX/SIMETH 30 ML UNIT-DOSE CUP PO SCH ×5 (01:28→23:26)
[2017-02-21] MEDS: D5-1/2NS+20 MEQ KCL - 20 MEQ/1,000 ML INFUS.BAG IV SCH ×2 (01:49→18:48)
[2017-02-21 08:40] LABS: ALBUMIN 1.6 g/dl (3.4-5.0); ANION GAP 5 (8-16); BLOOD UREA NITROGEN 12 mg/dL (7-18); CALCIUM 7.7 mg/dL (8.5-10.1); CHLORIDE 112 mmol/L (98-107); CO2 28 mmol/L (21-32); CREATININE 1.2 mg/dL (0.7-1.3); GLUCOSE,RANDOM 88 mg/dL (74-106); POTASSIUM 4.5 mmol/L (3.5-5.1); SGOT/AST 26 U/L (15-37); SGPT/ALT 41 U/L (12-78); SODIUM 145 mmol/L (136-145)
[2017-02-21 08:41] LABS: ALK PHOS 68 U/L (45-117); BILIRUBIN,TOTAL 0.2 mg/dL (0.2-1.0); TOT PROT 5.4 g/dl (6.4-8.2)
[2017-02-21 08:42] LABS: BASO % 0.4 % (0-2.0); EOS % 2.3 % (0-4.5); HEMATOCRIT 23.7 % (35.4-49); HEMOGLOBIN 7.6 GM/dL (11.7-16.9); LYMPH % 19.6 % (8-40); MCH 27.2 pg (25.7-33.7); MCHC 32.2 g/dl (32.0-35.9); MEAN CELL VOLUME 84.7 fl (80-96); MEAN PLT VOLUME 8.1 fl (7.5-11.1); MONO % 5.7 % (3.8-10.2); PLATELET COUNT 313 K/MM3 (134-434); RBC 2.79 M/mm3 (4.00-5.60); RDW 15.2 % (11.9-15.9); WHITE BLOOD COUNT 6.3 K/mm3 (4.0-10.0)
--- NOTE | 2017-02-21 09:07 | PN ---
Progress Note (short form) - Note Progress Note: pt seen/ examined feels / looks better eating better no further bleeding h/h slightly decreased cxr - f/u noted-- persistent infiltrate. afebrile denies pain Vital Signs Temp 97.7 F 02/21/17 05:57 Pulse 70 02/21/17 05:57 Resp 20 02/21/17 05:57 BP 125/55 02/21/17 05:57 Pulse Ox 98 02/20/17 21:00 Intake & Output 02/20/17 02/20/17 02/21/17 11:59 23:59 11:59 Intake Total 996 2250 915 Balance 996 2250 915 Intake: IV 996 800 915 D5-1/2NS+20 MEQ KCL - 20 996 800 915 meq In 1,000 ml @ 83 mls/ hr IV ASDIR [facility] Rx#: [id number] IVPB 300 Oral 1150 Other: Voiding Method Diaper Incontinent # Unmeasured Voids Void 2 2 1 Bowel Movement Yes Yes Yes # Bowel Movements 1 1 Active Medications Acetaminophen (Tylenol -) 650 mg PO Q6H PRN PRN Reason: FEVER OR PAIN Last Admin: 02/13/17 22:28 Dose: 650 mg Al Hydroxide/Mg Hydroxide (Mylanta Oral Suspension -) 30 ml PO Q6HPO [facility] Last Admin: 02/21/17 05:47 Dose: 30 ml Atorvastatin Calcium (Lipitor -) 10 mg PO [facility] Last Admin: 02/20/17 22:46 Dose: 10 mg Clotrimazole (Lotrimin 1% Cream -) 1 applic TP BID [facility] Last Admin: 02/20/17 22:46 Dose: 1 applic Donepezil HCl (Aricept -) 5 mg PO [facility] Last Admin: 02/20/17 22:46 Dose: 5 mg Azithromycin 500 mg/ Dextrose 250 mls @ 250 mls/hr IVPB DAILY [facility] Last Admin: 02/20/17 09:26 Dose: 250 mls/hr CEFTRIAXONE 1 G/50 ML PREMIX (Ceftriaxone 1 Gm-D5w Bag) 50 mls @ 100 mls/hr IVPB DAILY [facility] Last Admin: 02/20/17 09:26 Dose: 100 mls/hr Potassium Chloride/Dextrose/Sod Cl (D5-1/2ns+20 Meq Kcl -) 20 meq in 1,000 mls @ 83 mls/hr IV ASDIR [facility] Last Admin: 02/21/17 01:49 Dose: 83 mls/hr Memantine (Namenda -) 5 mg PO BID [facility] Last Admin: 02/20/17 22:46 Dose: 5 mg Metoprolol Tartrate (Lopressor -) 50 mg PO DAILY [facility] Last Admin: 02/20/17 09:27 Dose: 50 mg Mirtazapine (Remeron -) 15 mg PO HS [facility] Last Admin: 02/20/17 22:46 Dose: 15 mg Pantoprazole Sodium (Protonix Packets For Oral Suspension -) 40 mg PO BID [facility] Last Admin: 02/20/17 22:45 Dose: 40 mg Tamsulosin HCl (Flomax -) 0.4 mg PO DAILY@0830 [facility] Last Admin: 02/20/17 09:27 Dose: 0.4 mg CBC, BMP 02/21/17 07:16 02/21/17 07:16 Physical Exam. awake/ comfortable. no distress. lungs- Diminished at bases cvs- s1, s2 rrr abd - soft/ non tender ext- no edema neuro- awake- ASSESSMENT/PLAN: GI Bleed pneumonia Acute renal failure- better--back to baseline hypernatremia---dementia Plan Overall better. cxr - reviewed-- Continue antibiotics will consider switch to po in am Continue present care monitor for gi bleed eating better will transfuse today Discharge planning if stable- anticipate d/c by tomorrow. f/u cxr in 3-4 weeks to document clearing of pneumonia Problem List - Problems (1) Dementia Code(s): F03.90 - UNSPECIFIED DEMENTIA WITHOUT BEHAVIORAL DISTURBANCE (2) Fall Code(s): W19.XXXA - UNSPECIFIED FALL, INITIAL ENCOUNTER Qualifiers: Encounter type: initial encounter Qualified Code(s): W19.XXXA - Unspecified fall, initial encounter (3) Syncope Code(s): R55 - SYNCOPE AND COLLAPSE Qualifiers: Syncope type: unspecified Qualified Code(s): R55 - Syncope and collapse (4) Diabetes mellitus Code(s): E11.9 - TYPE 2 DIABETES MELLITUS WITHOUT COMPLICATIONS (5) Urinary retention due to benign prostatic hyperplasia Code(s): N40.1 - BENIGN PROSTATIC HYPERPLASIA WITH LOWER URINARY TRACT SYMP; R33.8 - OTHER RETENTION OF URINE
[2017-02-21] MEDS ORDERED: FUROSEMIDE 40 MG/4 ML INJECTABLE VIAL IVPUSH ONE ×2 (09:11→18:45)
[2017-02-21] MEDS: CLOTRIMAZOLE 1% CREAM 15 GM TUBE TP SCH ×2 (10:58→22:51)
[2017-02-21] MEDS: CEFTRIAXONE 1 G/50 ML PREMIX 50 ML IVPB SCH (10:58)
[2017-02-21] MEDS: MEMANTINE HCL 5 MG TABLET (UD) PO SCH ×2 (10:58→22:50)
[2017-02-21] MEDS: AZITHROMYCIN IVPB 500 MG in DEXTROSE 5%-WATER - 250 ML IVPB SCH (10:58)
[2017-02-21] MEDS: PANTOPRAZOLE SOD 40 MG SUSPENSION PACKET PO SCH ×2 (10:59→22:51)
[2017-02-21] MEDS: METOPROLOL TARTRATE 50 MG TABLET (FP) PO SCH (10:59)
[2017-02-21] MEDS: TAMSULOSIN HCL 0.4 MG CAP.ER.24H (FP) PO SCH (10:59)
--- NOTE | 2017-02-21 11:42 | PN ---
Progress Note, [employer] - Note Progress Note: Selected Entries 02/19/17 02/19/17 02/19/17 06:00 09:36 14:00 Breakfast Lunch Supper Temperature 97.5 F L 97.6 F 98.0 F 02/19/17 02/19/17 02/20/17 19:00 21:00 09:18 Breakfast 100% Lunch Supper Temperature 97.4 F L 97.4 F L 02/20/17 02/20/17 02/20/17 10:00 14:19 18:48 Breakfast Lunch 100% Supper 100% Temperature 98.3 F 98.6 F 97.8 F 02/20/17 02/21/17 21:15 05:57 Breakfast Lunch Supper Temperature 97.9 F 97.7 F Laboratory Tests 02/19/17 02/21/17 07:45 07:16 WBC 6.6 6.3 Pt was on a soft diet and thin liquid at [facility]. Pt on pureed diet and nectar thick liquids.Tolerating diet well. Reassessed with responsive cough with thin liquid, c/w aspiration, and fair mastication with moistened cracker, expectorating any more solid, harder pieces. Continue puree/nectar/supplements MBS in future, before diet upgraded.
--- NOTE | 2017-02-21 12:37 | PN ---
Progress Note, Physician History of Present Illness: The patient is an 86 year old male with a history of dementia, UTI, BBH, CVA, HTN, Anemia who presents from [facility] for evaluation following a syncopal episode. The patient is a poor historian and the penitentiary was contacted for the history. The patient had a ureteral stent placed on . They report that the patient had an unwitnessed fall earlier today at 3am. They report that the patient then had a syncopal episode after an hour of PT prompting his presentation to the ED today. It is unclear if the patient experienced any head trauma. The patient denies any complaints at this time besides some mild generalized weakness and does not recall the event. He denies fevers, chills, headache, SOB, chest pain, abdominal pain. - Current Medication List Current Medications: Active Medications Acetaminophen (Tylenol -) 650 mg PO Q6H PRN PRN Reason: FEVER OR PAIN Last Admin: 02/13/17 22:28 Dose: 650 mg Al Hydroxide/Mg Hydroxide (Mylanta Oral Suspension -) 30 ml PO Q6HPO [facility] Last Admin: 02/21/17 05:47 Dose: 30 ml Atorvastatin Calcium (Lipitor -) 10 mg PO [facility] Last Admin: 02/20/17 22:46 Dose: 10 mg Clotrimazole (Lotrimin 1% Cream -) 1 applic TP BID [facility] Last Admin: 02/21/17 10:58 Dose: 1 applic Donepezil HCl (Aricept -) 5 mg PO [facility] Last Admin: 02/20/17 22:46 Dose: 5 mg Azithromycin 500 mg/ Dextrose 250 mls @ 250 mls/hr IVPB DAILY [facility] Last Admin: 02/21/17 10:58 Dose: 250 mls/hr CEFTRIAXONE 1 G/50 ML PREMIX (Ceftriaxone 1 Gm-D5w Bag) 50 mls @ 100 mls/hr IVPB DAILY [facility] Last Admin: 02/21/17 10:58 Dose: 100 mls/hr Potassium Chloride/Dextrose/Sod Cl (D5-1/2ns+20 Meq Kcl -) 20 meq in 1,000 mls @ 83 mls/hr IV ASDIR [facility] Last Admin: 02/21/17 01:49 Dose: 83 mls/hr Memantine (Namenda -) 5 mg PO BID [facility] Last Admin: 02/21/17 10:58 Dose: 5 mg Metoprolol Tartrate (Lopressor -) 50 mg PO DAILY [facility] Last Admin: 02/21/17 10:59 Dose: 50 mg Mirtazapine (Remeron -) 15 mg PO HS [facility] Last Admin: 02/20/17 22:46 Dose: 15 mg Pantoprazole Sodium (Protonix Packets For Oral Suspension -) 40 mg PO BID [facility] Last Admin: 02/21/17 10:59 Dose: 40 mg Tamsulosin HCl (Flomax -) 0.4 mg PO DAILY@0830 [facility] Last Admin: 02/21/17 10:59 Dose: 0.4 mg - Objective Vital Signs: Vital Signs Temperature 97.7 F 02/21/17 05:57 Pulse Rate 80 02/21/17 09:37 Respiratory Rate 20 02/21/17 05:57 Blood Pressure 125/55 02/21/17 05:57 O2 Sat by Pulse Oximetry (%) 99 02/21/17 09:37 Eyes: Yes: WNL, Conjunctiva Clear, EOM Intact HENT: Yes: WNL, Atraumatic, Normocephalic Neck: Yes: WNL, Supple, Trachea Midline Cardiovascular: Yes: WNL, Regular Rate and Rhythm Respiratory: Yes: WNL, Regular, CTA Bilaterally Gastrointestinal: Yes: WNL, Normal Bowel Sounds Genitourinary: Yes: WNL Musculoskeletal: Yes: WNL Extremities: Yes: WNL Edema: No Integumentary: Yes: WNL ...Motor Strength: WNL Psychiatric: Yes: WNL Labs: CBC, BMP 02/21/17 07:16 02/21/17 07:16 INR, PTT INR 1.24 (0.82-1.09) H 02/14/17 07:45 Assessment/Plan - Problems (1) Dementia Code(s): F03.90 - UNSPECIFIED DEMENTIA WITHOUT BEHAVIORAL DISTURBANCE (2) Anemia Code(s): D64.9 - ANEMIA, UNSPECIFIED (3) Fall Code(s): W19.XXXA - UNSPECIFIED FALL, INITIAL ENCOUNTER Qualifiers: Encounter type: initial encounter Qualified Code(s): W19.XXXA - Unspecified fall, initial encounter (4) Syncope Assessment/Plan: orthostatic VS Normal LVEF on ECHo; no significant . Maintain hydration. Code(s): R55 - SYNCOPE AND COLLAPSE Qualifiers: Syncope type: unspecified Qualified Code(s): R55 - Syncope and collapse (5) Diabetes mellitus Code(s): E11.9 - TYPE 2 DIABETES MELLITUS WITHOUT COMPLICATIONS
[2017-02-21 22:43] LABS: BASO % 0.3 % (0-2.0); EOS % 2.1 % (0-4.5); HEMATOCRIT 27.9 % (35.4-49); HEMOGLOBIN 9.2 GM/dL (11.7-16.9); LYMPH % 18.2 % (8-40); MCH 28.3 pg (25.7-33.7); MCHC 32.8 g/dl (32.0-35.9); MEAN CELL VOLUME 86.2 fl (80-96); MEAN PLT VOLUME 8.4 fl (7.5-11.1); MONO % 4.2 % (3.8-10.2); NEUT % 75.2 % (42.8-82.8); PLATELET COUNT 341 K/MM3 (134-434); RBC 3.24 M/mm3 (4.00-5.60); RDW 15.1 % (11.9-15.9); WHITE BLOOD COUNT 7.3 K/mm3 (4.0-10.0)
[2017-02-21] MEDS: DONEPEZIL HCL 5 MG TABLET (FP) PO SCH (22:50)
[2017-02-21] MEDS: ATORVASTATIN CA 10 MG TABLET (FP) PO SCH (22:50)
[2017-02-21] MEDS: MIRTAZAPINE 15 MG TABLET (FP) PO SCH (22:50)
[2017-02-22] MEDS: MAG HYDROX/AL HYDROX/SIMETH 30 ML UNIT-DOSE CUP PO SCH ×3 (06:31→17:21)
[2017-02-22] MEDS: D5-1/2NS+20 MEQ KCL - 20 MEQ/1,000 ML INFUS.BAG IV SCH ×3 (07:37→20:39)
[2017-02-22 08:17] LABS: BASO % 1.7 % (0-2.0); EOS % 2.2 % (0-4.5); HEMATOCRIT 27.9 % (35.4-49); HEMOGLOBIN 8.9 GM/dL (11.7-16.9); LYMPH % 17.9 % (8-40); MCH 27.7 pg (25.7-33.7); MCHC 32.1 g/dl (32.0-35.9); MEAN CELL VOLUME 86.4 fl (80-96); MEAN PLT VOLUME 8.2 fl (7.5-11.1); MONO % 5.3 % (3.8-10.2); NEUT % 72.9 % (42.8-82.8); PLATELET COUNT 327 K/MM3 (134-434); RBC 3.23 M/mm3 (4.00-5.60); RDW 15.2 % (11.9-15.9); WHITE BLOOD COUNT 6.6 K/mm3 (4.0-10.0)
--- NOTE | 2017-02-22 08:32 | DS ---
Physical Examination Vital Signs: Vital Signs Temperature 97.5 F L 02/22/17 07:07 Pulse Rate 71 02/22/17 07:07 Respiratory Rate 20 02/22/17 07:07 Blood Pressure 143/66 02/22/17 07:07 O2 Sat by Pulse Oximetry (%) 98 02/21/17 21:00 Findings/Remarks: awake and comfortable No complaints Eating well Afebrile Constitutional: Yes: No Distress, Calm Eyes: Yes: Conjunctiva Clear Neck: Yes: Supple Cardiovascular: Yes: Regular Rate and Rhythm Respiratory: Yes: CTA Bilaterally Gastrointestinal: Yes: Soft Edema: No Neurological: Yes: Alert, Other (forgetful) Psychiatric: Yes: Alert Discharge Summary Reason For Visit: SYNCOPE,FALL Current Active Problems Acute prerenal azotemia (Acute) Anemia (Acute) Dehydration with hypernatremia (Acute) Dementia (Acute) Duodenal ulcer (Acute) Elevated LFTs (Acute) Fall (Acute) Gastrointestinal hemorrhage with melena (Acute) Hepatitis (Acute) Hypernatremia (Acute) Hypoalbuminemia (Acute) Syncope (Acute) Hospital Course: 86M w/ hx of dementia, UTI, BPH, nephrolithiasis s/p recent ureteral stent (), DM, CVA, BPH, HTN, anemia, and HLD presenting from [facility] after syncopal episode. admitted to tele cardiology followed work up +ve for uti- treated with uti davis removed pt also anemic episode of GI bleed underwent EGD---findings--prepyloric ulcer Morris esophagus Follow-up EGD advised in 2 months Colonoscopy as outpatient--- whenever he would be able to prep Hospital course further complicated by pneumonia Treated with antibiotics Follow-up chest x-ray persistent infiltrate--- but patient is afebrile and clinically much better Follow-up chest x-ray in 4 weeks recommended decubitus care now stable for d/c family request different prison discussed with nursing staff/ rn case manager again today meds reconcilled patient will need urology f/u as out pt with Dr. Mike Zimmerman also d/c time 35 min in examining/ documenting and coordinate care Condition: Stable - Instructions Referrals: Sean Riddle MD [Primary Care Provider] - Disposition: CARE HOME FACILITY - Home Medications Comprehensive Discharge Medication List: Ambulatory Orders Metoprolol Tartrate [Lopressor -] 50 mg PO DAILY 09/05/12 Memantine HCl [Namenda -] 5 mg PO BID #30 tab 12/13/16 Acetaminophen [Tylenol] 650 mg PO Q6H PRN 12/16/16 Tamsulosin HCl [Flomax] 0.4 mg PO DAILY 12/16/16 Atorvastatin Ca [Lipitor] 10 mg PO HS 12/20/16 Donepezil HCl [Aricept -] 5 mg PO DAILY 12/20/16 Mirtazapine [Remeron -] 15 mg PO HS 12/20/16 Bacitracin - [Bacitracin Topical Ointment -] 1 applic TP BID 02/04/17 Docusate Sodium [Colace -] 200 mg PO BID 02/04/17 Polyethylene Glycol 3350 [Miralax 119 gm Btl -] 17 gm PO BID 02/04/17 Sennosides [Senna -] 2 tab PO DAILY 02/04/17 Alprazolam [Xanax] 0.25 mg PO Q8H PRN #30 tablet MDD 3 02/10/17 Heparin - 5,000 unit SQ TID vial 02/10/17 Acetaminophen [Tylenol .Regular Strength -] 650 mg PO Q6H PRN tablet 02/22/17 Amox-Tr/K Cl [Augmentin - 500Mg Tablet] 1 tab PO BID 5 Days #10 tab 02/22/17 Clotrimazole [Lotrimin -] 1 applic TP BID tube 02/22/17 Mag Hydrox/Al Hydrox/Simeth [Mylanta Oral Suspension -] 30 ml PO Q6HPO cup 11/01 Pantoprazole Suspension [Protonix Packets For Oral Suspension -] 40 mg PO BID packet 02/22/17
[2017-02-22 08:33] LABS: ALBUMIN 1.7 g/dl (3.4-5.0); ANION GAP 4 (8-16); BILIRUBIN,TOTAL 0.4 mg/dL (0.2-1.0); BLOOD UREA NITROGEN 12 mg/dL (7-18); CALCIUM 7.7 mg/dL (8.5-10.1); CHLORIDE 106 mmol/L (98-107); CO2 31 mmol/L (21-32); CREATININE 1.3 mg/dL (0.7-1.3); GLUCOSE,RANDOM 96 mg/dL (74-106); POTASSIUM 4.5 mmol/L (3.5-5.1); SGOT/AST 27 U/L (15-37); SGPT/ALT 43 U/L (12-78); SODIUM 141 mmol/L (136-145); TOT PROT 5.8 g/dl (6.4-8.2)
[2017-02-22 08:34] LABS: ALK PHOS 72 U/L (45-117)
[2017-02-22] MEDS: PANTOPRAZOLE SOD 40 MG SUSPENSION PACKET PO SCH ×2 (09:51→22:38)
[2017-02-22] MEDS: METOPROLOL TARTRATE 50 MG TABLET (FP) PO SCH (09:51)
[2017-02-22] MEDS: TAMSULOSIN HCL 0.4 MG CAP.ER.24H (FP) PO SCH (09:51)
[2017-02-22] MEDS: MEMANTINE HCL 5 MG TABLET (UD) PO SCH ×2 (09:51→22:38)
[2017-02-22] MEDS: CLOTRIMAZOLE 1% CREAM 15 GM TUBE TP SCH ×2 (09:52→22:39)
--- NOTE | 2017-02-22 11:21 | PN ---
Progress Note, [employer]GER - Note Progress Note: Pt was on a soft diet and thin liquid at [facility]. Selected Entries 02/21/17 02/21/17 02/21/17 05:57 14:36 18:40 Supper 100% Temperature 97.7 F 97.7 F 98.1 F 02/21/17 02/22/17 22:00 07:07 Supper Temperature 98.8 F 97.5 F L Swallowing reassessed with impulsive intake of a soft cookie, needing to take it out of his hand and encourage him to chew it and swallow. Impaired rotary mastication,and cues needed to swallow. Voice is dysphonic. Swallow is reduced in rate of onset and laryngeal excursion.Trial of 2 sips of thin water. Delayed unprotective cough, c/w aspiration. Continue puree/nectar/magic cup supplements MBS in future,as out pt, before diet upgraded.
--- NOTE | 2017-02-22 20:06 | PN ---
Progress Note, Physician Chief Complaint: Pt opens eyes; does now follow commands. History of Present Illness: The patient is an 86 year old white male with a history of dementia, UTI, BBH, CVA, HTN, Anemia who presents from [facility] for evaluation following a syncopal episode. The patient is a poor historian and the penitentiary was contacted for the history. The patient had a ureteral stent placed on 01/31/17. They report that the patient had an unwitnessed fall earlier today at 3am. They report that the patient then had a syncopal episode after an hour of PT prompting his presentation to the ED today. It is unclear if the patient experienced any head trauma. The patient denies any complaints at this time besides some mild generalized weakness and does not recall the event. He denies fevers, chills, headache, SOB, chest pain, abdominal pain. - Current Medication List Current Medications: Active Medications Acetaminophen (Tylenol -) 650 mg PO Q6H PRN PRN Reason: FEVER OR PAIN Last Admin: 02/13/17 22:28 Dose: 650 mg Al Hydroxide/Mg Hydroxide (Mylanta Oral Suspension -) 30 ml PO Q6HPO [facility] Last Admin: 02/22/17 17:21 Dose: 30 ml Atorvastatin Calcium (Lipitor -) 10 mg PO [facility] Last Admin: 02/21/17 22:50 Dose: 10 mg Clotrimazole (Lotrimin 1% Cream -) 1 applic TP BID [facility] Last Admin: 02/22/17 09:52 Dose: 1 applic Donepezil HCl (Aricept -) 5 mg PO [facility] Last Admin: 02/21/17 22:50 Dose: 5 mg Potassium Chloride/Dextrose/Sod Cl (D5-1/2ns+20 Meq Kcl -) 20 meq in 1,000 mls @ 83 mls/hr IV ASDIR [facility] Last Admin: 02/22/17 17:22 Dose: 83 mls/hr Memantine (Namenda -) 5 mg PO BID [facility] Last Admin: 02/22/17 09:51 Dose: 5 mg Metoprolol Tartrate (Lopressor -) 50 mg PO DAILY [facility] Last Admin: 02/22/17 09:51 Dose: 50 mg Mirtazapine (Remeron -) 15 mg PO [facility] Last Admin: 02/21/17 22:50 Dose: 15 mg Pantoprazole Sodium (Protonix Packets For Oral Suspension -) 40 mg PO BID [facility] Last Admin: 02/22/17 09:51 Dose: 40 mg Tamsulosin HCl (Flomax -) 0.4 mg PO DAILY@0830 [facility] Last Admin: 02/22/17 09:51 Dose: 0.4 mg - Objective Vital Signs: Vital Signs Temperature 97.7 F 02/22/17 19:00 Pulse Rate 67 02/22/17 19:00 Respiratory Rate 18 02/22/17 19:00 Blood Pressure 119/65 02/22/17 19:00 O2 Sat by Pulse Oximetry (%) 98 02/22/17 09:36 Constitutional: Yes: Calm Eyes: Yes: WNL HENT: Yes: WNL Neck: Yes: WNL Cardiovascular: Yes: S1, S2 Respiratory: Yes: Regular Gastrointestinal: Yes: Soft Genitourinary: No: Anuria Musculoskeletal: Yes: Muscle Weakness Extremities: Yes: Cool Edema: No Peripheral Pulses WNL: No Peripheral Pulses: Left Doralis Pedis: 1+, Right Dorsalis Pedis: 1+ Neurological: Yes: Confusion, Weakness Psychiatric: Yes: Other (dementia) Labs: CBC, BMP 02/22/17 07:30 02/22/17 07:30 INR, PTT INR 1.24 (0.82-1.09) H 02/14/17 07:45 Abnormal Lab Results 02/22/17 02/22/17 07:30 07:30 RBC 3.23 L Hgb 8.9 L Hct 27.9 L Anion Gap 4 L Calcium 7.7 L Total Protein 5.8 L Albumin 1.7 L Problem List - Problems (1) Dementia Assessment/Plan: f/u with psychiatry,neurology. continued periods of confusion. Code(s): F03.90 - UNSPECIFIED DEMENTIA WITHOUT BEHAVIORAL DISTURBANCE (2) Anemia Assessment/Plan: duodenal ulcer. F/u with GI, hematology. Code(s): D64.9 - ANEMIA, UNSPECIFIED Qualifiers: Other causes of anemia: acute posthemorrhagic (3) Fall Code(s): W19.XXXA - UNSPECIFIED FALL, INITIAL ENCOUNTER Qualifiers: Encounter type: initial encounter Qualified Code(s): W19.XXXA - Unspecified fall, initial encounter (4) Syncope Assessment/Plan: orthostatic VS EKG: normal study. CXR: no acute changes. Normal LVEF on ECHO; no significant . Maintain hydration. Carotid US: no significant disease. Ct head: no acute pathology. Hx dementia. Duodenal ulcer with periods of bleeding-->anemia may be etiology. Code(s): R55 - SYNCOPE AND COLLAPSE Qualifiers: Syncope type: unspecified Qualified Code(s): R55 - Syncope and collapse (5) Diabetes mellitus Code(s): E11.9 - TYPE 2 DIABETES MELLITUS WITHOUT COMPLICATIONS (6) Hypoalbuminemia Code(s): E88.09 - OTH DISORDERS OF PLASMA-PROTEIN METABOLISM, NEC (7) Duodenal ulcer Assessment/Plan: bleeding under control, per GI. Code(s): K26.9 - DUODENAL ULCER, UNSP ACUTE OR CHRONIC, W/O HEMOR OR PERF (8) Elevated LFTs Assessment/Plan: now WNL. Code(s): R79.89 - OTHER SPECIFIED ABNORMAL FINDINGS OF BLOOD CHEMISTRY (9) HTN (hypertension) Assessment/Plan: change to metoprolol ER for better 24 hour coverage. F/u EKG for HR, prior STT changes. Code(s): I10 - ESSENTIAL (PRIMARY) HYPERTENSION
[2017-02-22] MEDS: MIRTAZAPINE 15 MG TABLET (FP) PO SCH (22:38)
[2017-02-22] MEDS: DONEPEZIL HCL 5 MG TABLET (FP) PO SCH (22:38)
[2017-02-22] MEDS: ATORVASTATIN CA 10 MG TABLET (FP) PO SCH (22:38)
[2017-02-23] MEDS: MAG HYDROX/AL HYDROX/SIMETH 30 ML UNIT-DOSE CUP PO SCH ×5 (00:09→23:34)
[2017-02-23] MEDS: TAMSULOSIN HCL 0.4 MG CAP.ER.24H (FP) PO SCH (09:04)
--- NOTE | 2017-02-23 09:22 | PN ---
Progress Note (short form) - Note Progress Note: awake and comfortable No complaints periods of confusion--especially at nighttime. denies pain eating well Vital Signs Temp 98.4 F 02/23/17 06:00 Pulse 73 02/23/17 06:00 Resp 18 02/23/17 06:00 BP 133/64 02/23/17 06:00 Pulse Ox 98 02/22/17 20:42 Intake & Output 02/22/17 02/22/17 02/23/17 11:59 23:59 11:59 Intake Total 1296 1400 1236 Balance 1296 1400 1236 Intake: IV 996 1000 996 D5-1/2NS+20 MEQ KCL - 20 996 1000 996 meq In 1,000 ml @ 83 mls/ hr IV ASDIR [facility] Rx#: [id number] Oral 300 400 240 Other: Voiding Method Toilet Diaper # Unmeasured Voids Void 1 3 2 Bowel Movement Yes: small Yes Yes # Bowel Movements 1 3 Active Medications Acetaminophen (Tylenol -) 650 mg PO Q6H PRN PRN Reason: FEVER OR PAIN Last Admin: 02/13/17 22:28 Dose: 650 mg Al Hydroxide/Mg Hydroxide (Mylanta Oral Suspension -) 30 ml PO Q6HPO [facility] Last Admin: 02/23/17 06:09 Dose: 30 ml Amoxicillin/Clavulanate Potassium (Augmentin - 500mg Tablet) 1 tab PO BID@0800, 1730 [facility] Atorvastatin Calcium (Lipitor -) 10 mg PO [facility] Last Admin: 02/22/17 22:38 Dose: 10 mg Clotrimazole (Lotrimin 1% Cream -) 1 applic TP BID [facility] Last Admin: 02/22/17 22:39 Dose: 1 applic Donepezil HCl (Aricept -) 5 mg PO [facility] Last Admin: 02/22/17 22:38 Dose: 5 mg Memantine (Namenda -) 5 mg PO BID [facility] Last Admin: 02/22/17 22:38 Dose: 5 mg Metoprolol Succinate (Toprol Xl -) 50 mg PO DAILY [facility] Mirtazapine (Remeron -) 15 mg PO [facility] Last Admin: 02/22/17 22:38 Dose: 15 mg Pantoprazole Sodium (Protonix Packets For Oral Suspension -) 40 mg PO BID [facility] Last Admin: 02/22/17 22:38 Dose: 40 mg Tamsulosin HCl (Flomax -) 0.4 mg PO DAILY@0830 [facility] Last Admin: 02/23/17 09:04 Dose: 0.4 mg MANFRED BARR 02/22/17 07:30 02/22/17 07:30 Physical Exam. awake/ comfortable. lungs- Diminished at bases cvs- s1, s2 rrr abd - soft/ non tender ext- no edema neuro- awake- ASSESSMENT/PLAN: GI Bleed pneumonia Acute renal failure- better--back to baseline hypernatremia---dementia dementia Plan clinically stable Continue present care Po antibiotics and discontinue fluids Awaiting insurance authorization for rehabilitation Discussed with therapeutic case manager Medically stable for discharge Problem List - Problems (1) Dementia Code(s): F03.90 - UNSPECIFIED DEMENTIA WITHOUT BEHAVIORAL DISTURBANCE (2) Fall Code(s): W19.XXXA - UNSPECIFIED FALL, INITIAL ENCOUNTER Qualifiers: Encounter type: initial encounter Qualified Code(s): W19.XXXA - Unspecified fall, initial encounter (3) Syncope Code(s): R55 - SYNCOPE AND COLLAPSE Qualifiers: Syncope type: unspecified Qualified Code(s): R55 - Syncope and collapse (4) Diabetes mellitus Code(s): E11.9 - TYPE 2 DIABETES MELLITUS WITHOUT COMPLICATIONS (5) Urinary retention due to benign prostatic hyperplasia Code(s): N40.1 - BENIGN PROSTATIC HYPERPLASIA WITH LOWER URINARY TRACT SYMP; R33.8 - OTHER RETENTION OF URINE
[2017-02-23] MEDS: CLOTRIMAZOLE 1% CREAM 15 GM TUBE TP SCH ×2 (10:00→21:57)
[2017-02-23] MEDS: PANTOPRAZOLE SOD 40 MG SUSPENSION PACKET PO SCH ×2 (10:04→21:57)
[2017-02-23] MEDS: MEMANTINE HCL 5 MG TABLET (UD) PO SCH ×2 (10:04→21:58)
--- NOTE | 2017-02-23 10:26 | PN ---
Progress Note, Physician History of Present Illness: The patient is an 86 year old male with a history of dementia, UTI, BBH, CVA, HTN, Anemia who presents from [facility] for evaluation following a syncopal episode. The patient is a poor historian and the skilled nursing was contacted for the history. The patient had a ureteral stent placed on . They report that the patient had an unwitnessed fall earlier today at 3am. They report that the patient then had a syncopal episode after an hour of PT prompting his presentation to the ED today. It is unclear if the patient experienced any head trauma. The patient denies any complaints at this time besides some mild generalized weakness and does not recall the event. He denies fevers, chills, headache, SOB, chest pain, abdominal pain. - Current Medication List Current Medications: Active Medications Acetaminophen (Tylenol -) 650 mg PO Q6H PRN PRN Reason: FEVER OR PAIN Last Admin: 02/13/17 22:28 Dose: 650 mg Al Hydroxide/Mg Hydroxide (Mylanta Oral Suspension -) 30 ml PO Q6HPO [facility] Last Admin: 02/23/17 06:09 Dose: 30 ml Amoxicillin/Clavulanate Potassium (Augmentin - 500mg Tablet) 1 tab PO BID@0800, 1730 [facility] Atorvastatin Calcium (Lipitor -) 10 mg PO [facility] Last Admin: 02/22/17 22:38 Dose: 10 mg Clotrimazole (Lotrimin 1% Cream -) 1 applic TP BID [facility] Last Admin: 02/22/17 22:39 Dose: 1 applic Donepezil HCl (Aricept -) 5 mg PO [facility] Last Admin: 02/22/17 22:38 Dose: 5 mg Memantine (Namenda -) 5 mg PO BID [facility] Last Admin: 02/23/17 10:04 Dose: 5 mg Metoprolol Succinate (Toprol Xl -) 50 mg PO DAILY [facility] Mirtazapine (Remeron -) 15 mg PO [facility] Last Admin: 02/22/17 22:38 Dose: 15 mg Pantoprazole Sodium (Protonix Packets For Oral Suspension -) 40 mg PO BID [facility] Last Admin: 02/23/17 10:04 Dose: 40 mg Tamsulosin HCl (Flomax -) 0.4 mg PO DAILY@0830 [facility] Last Admin: 02/23/17 09:04 Dose: 0.4 mg - Objective Vital Signs: Vital Signs Temperature 98.4 F 02/23/17 06:00 Pulse Rate 73 02/23/17 06:00 Respiratory Rate 18 02/23/17 06:00 Blood Pressure 133/64 02/23/17 06:00 O2 Sat by Pulse Oximetry (%) 98 02/22/17 20:42 Eyes: Yes: WNL, Conjunctiva Clear, EOM Intact HENT: Yes: WNL, Atraumatic, Normocephalic Neck: Yes: WNL, Supple, Trachea Midline Cardiovascular: Yes: WNL, Regular Rate and Rhythm Respiratory: Yes: WNL, Regular, CTA Bilaterally Gastrointestinal: Yes: WNL, Normal Bowel Sounds Genitourinary: Yes: WNL Musculoskeletal: Yes: WNL Extremities: Yes: WNL Edema: No Integumentary: Yes: WNL Neurological: Yes: WNL, Alert, Oriented ...Motor Strength: WNL Psychiatric: Yes: WNL Labs: CBC, BMP 02/22/17 07:30 02/22/17 07:30 INR, PTT INR 1.24 (0.82-1.09) H 02/14/17 07:45 Assessment/Plan - Problems (1) Dementia Assessment/Plan: f/u with psychiatry,neurology. continued periods of confusion. Code(s): F03.90 - UNSPECIFIED DEMENTIA WITHOUT BEHAVIORAL DISTURBANCE (2) Anemia Assessment/Plan: duodenal ulcer. F/u with GI, hematology. Code(s): D64.9 - ANEMIA, UNSPECIFIED Qualifiers: Other causes of anemia: acute posthemorrhagic (3) Fall Code(s): W19.XXXA - UNSPECIFIED FALL, INITIAL ENCOUNTER Qualifiers: Encounter type: initial encounter Qualified Code(s): W19.XXXA - Unspecified fall, initial encounter (4) Syncope Assessment/Plan: orthostatic VS EKG: normal study. CXR: no acute changes. Normal LVEF on ECHO; no significant . Maintain hydration. Carotid US: no significant disease. Ct head: no acute pathology. Hx dementia. Duodenal ulcer with periods of bleeding-->anemia may be etiology. Code(s): R55 - SYNCOPE AND COLLAPSE Qualifiers: Syncope type: unspecified Qualified Code(s): R55 - Syncope and collapse (5) Diabetes mellitus Code(s): E11.9 - TYPE 2 DIABETES MELLITUS WITHOUT COMPLICATIONS (6) Hypoalbuminemia Code(s): E88.09 - OTH DISORDERS OF PLASMA-PROTEIN METABOLISM, NEC (7) Duodenal ulcer Assessment/Plan: bleeding under control, per GI. Code(s): K26.9 - DUODENAL ULCER, UNSP ACUTE OR CHRONIC, W/O HEMOR OR PERF (8) Elevated LFTs Assessment/Plan: now WNL. Code(s): R79.89 - OTHER SPECIFIED ABNORMAL FINDINGS OF BLOOD CHEMISTRY (9) HTN (hypertension) Assessment/Plan: change to metoprolol ER for better 24 hour coverage. F/u EKG for HR, prior STT changes. Code(s): I10 - ESSENTIAL (PRIMARY) HYPERTENSION
[2017-02-23] MEDS: METOPROLOL SUCCINATE 50 MG TAB.SR.24H (FP) PO SCH (10:30)
[2017-02-23] MEDS ORDERED: INSULIN (NOVOLOG) ASPART 100 UNITS/ML 10ML VIAL ONE (11:40)
[2017-02-23] MEDS ORDERED: INSULIN DETEMIR 100 UNITS/ML MDV SQ ONE (11:41)
--- NOTE | 2017-02-23 12:16 | EKG ---
Test Reason : Blood Pressure : / mmHG Vent. Rate : 081 BPM Atrial Rate : 081 BPM P-R Int : 154 ms QRS Dur : 072 ms QT Int : 378 ms P-R-T Axes : 014 -22 036 degrees QTc Int : 439 ms POOR DATA QUALITY, INTERPRETATION MAY BE ADVERSELY AFFECTED NORMAL SINUS RHYTHM NORMAL ECG WHEN COMPARED WITH ECG OF 11-FEB-2017 22:40, PREMATURE ATRIAL COMPLEXES ARE NO LONGER PRESENT ST NO LONGER DEPRESSED IN ANTEROLATERAL LEADS T WAVE INVERSION NO LONGER EVIDENT IN INFERIOR LEADS T WAVE INVERSION NO LONGER EVIDENT IN ANTERIOR LEADS QT HAS LENGTHENED Confirmed by CHACORTA ARAYA MD ([id number]) on 02/23/2017 12:16:05 PM Also confirmed by CHACORTA ARAYA MD ([id number]) on 02/23/2017 12:22:41 PM Referred By: CARLOS ANTHONY DR Confirmed By:CHACORTA ARAYA MD
[2017-02-23] MEDS ORDERED: PT OWN MED DRAWER 7, Y5N ONE (17:07)
[2017-02-23] MEDS: AMOX TR/POT CLAV 500MG/125MG TABLETS (FP) PO SCH (17:16)
[2017-02-23] MEDS: ATORVASTATIN CA 10 MG TABLET (FP) PO SCH (21:58)
[2017-02-23] MEDS: DONEPEZIL HCL 5 MG TABLET (FP) PO SCH (21:58)
[2017-02-23] MEDS: MIRTAZAPINE 15 MG TABLET (FP) PO SCH (21:58)
[2017-02-24] MEDS: MAG HYDROX/AL HYDROX/SIMETH 30 ML UNIT-DOSE CUP PO SCH ×4 (05:51→23:15)
[2017-02-24] MEDS: TAMSULOSIN HCL 0.4 MG CAP.ER.24H (FP) PO SCH (09:00)
[2017-02-24] MEDS ORDERED: PT OWN MED DRAWER 7, Y5N ONE (09:25)
[2017-02-24] MEDS: METOPROLOL SUCCINATE 50 MG TAB.SR.24H (FP) PO SCH (09:46)
[2017-02-24] MEDS: PANTOPRAZOLE SOD 40 MG SUSPENSION PACKET PO SCH (09:46)
[2017-02-24] MEDS: MEMANTINE HCL 5 MG TABLET (UD) PO SCH ×2 (09:46→22:56)
[2017-02-24] MEDS: AMOX TR/POT CLAV 500MG/125MG TABLETS (FP) PO SCH ×2 (09:46→18:19)
[2017-02-24] MEDS: CLOTRIMAZOLE 1% CREAM 15 GM TUBE TP SCH ×2 (09:47→22:56)
--- NOTE | 2017-02-24 09:50 | PN ---
Progress Note (short form) - Note Progress Note: patient comfortable No complaints Overall condition same Vital Signs Temp 98 F 02/24/17 09:17 Pulse 81 02/24/17 09:17 Resp 20 02/24/17 09:17 BP 124/60 02/24/17 09:17 Pulse Ox 98 02/23/17 21:00 Intake & Output 02/23/17 02/23/17 02/24/17 11:59 23:59 11:59 Intake Total 1236 960 100 Balance 1236 960 100 Intake: IV 996 600 D5-1/2NS+20 MEQ KCL - 20 996 600 meq In 1,000 ml @ 83 mls/ hr IV ASDIR [facility] Rx#: [id number] Oral 240 360 100 Other: Voiding Method Incontinent Incontinent Incontinent # Unmeasured Voids Void 2 2 2 Bowel Movement Yes Yes Yes # Bowel Movements 1 Active Medications Acetaminophen (Tylenol -) 650 mg PO Q6H PRN PRN Reason: FEVER OR PAIN Last Admin: 02/13/17 22:28 Dose: 650 mg Al Hydroxide/Mg Hydroxide (Mylanta Oral Suspension -) 30 ml PO Q6HPO [facility] Last Admin: 02/24/17 05:51 Dose: 30 ml Amoxicillin/Clavulanate Potassium (Augmentin - 500mg Tablet) 1 tab PO BID@0800, 1730 [facility] Last Admin: 02/24/17 09:46 Dose: 1 tab Atorvastatin Calcium (Lipitor -) 10 mg PO [facility] Last Admin: 02/23/17 21:58 Dose: 10 mg Clotrimazole (Lotrimin 1% Cream -) 1 applic TP BID [facility] Last Admin: 02/24/17 09:47 Dose: 1 applic Donepezil HCl (Aricept -) 5 mg PO [facility] Last Admin: 02/23/17 21:58 Dose: 5 mg Memantine (Namenda -) 5 mg PO BID [facility] Last Admin: 02/24/17 09:46 Dose: 5 mg Metoprolol Succinate (Toprol Xl -) 50 mg PO DAILY [facility] Last Admin: 02/24/17 09:46 Dose: 50 mg Mirtazapine (Remeron -) 15 mg PO [facility] Last Admin: 02/23/17 21:58 Dose: 15 mg Pantoprazole Sodium (Protonix Packets For Oral Suspension -) 40 mg PO BID [facility] Last Admin: 02/24/17 09:46 Dose: 40 mg Tamsulosin HCl (Flomax -) 0.4 mg PO DAILY@0830 [facility] Last Admin: 02/24/17 09:00 Dose: 0.4 mg MOMO BMP 02/22/17 07:30 02/22/17 07:30 Physical Exam. awake/ comfortable. lungs- Diminished at bases cvs- s1, s2 rrr abd - soft/ non tender ext- no edema neuro- awake- ASSESSMENT/PLAN: GI Bleed pneumonia Acute renal failure- better--back to baseline hypernatremia---dementia dementia Plan clinically stable Continue present care Po antibiotics Awaiting insurance authorization for rehabilitation Discussed with child support case officer again today daily out of bed to chair--discussed with nursing staff also. Medically stable for discharge pending authorization. Problem List - Problems (1) Dementia Code(s): F03.90 - UNSPECIFIED DEMENTIA WITHOUT BEHAVIORAL DISTURBANCE (2) Fall Code(s): W19.XXXA - UNSPECIFIED FALL, INITIAL ENCOUNTER Qualifiers: Encounter type: initial encounter Qualified Code(s): W19.XXXA - Unspecified fall, initial encounter (3) Syncope Code(s): R55 - SYNCOPE AND COLLAPSE Qualifiers: Syncope type: unspecified Qualified Code(s): R55 - Syncope and collapse (4) Diabetes mellitus Code(s): E11.9 - TYPE 2 DIABETES MELLITUS WITHOUT COMPLICATIONS (5) Urinary retention due to benign prostatic hyperplasia Code(s): N40.1 - BENIGN PROSTATIC HYPERPLASIA WITH LOWER URINARY TRACT SYMP; R33.8 - OTHER RETENTION OF URINE
--- NOTE | 2017-02-24 12:07 | PN ---
Progress Note, ICE PULLER - Note Progress Note: Pt was on a soft diet and thin liquid at [facility]. Selected Entries 02/21/17 02/21/17 02/21/17 05:57 14:36 18:40 Supper 100% Temperature 97.7 F 97.7 F 98.1 F 02/21/17 02/22/17 22:00 07:07 Supper Temperature 98.8 F 97.5 F L Selected Entries 02/23/17 02/23/17 02/23/17 06:00 10:00 14:32 Breakfast 50% Lunch 0 Supper Temperature 98.4 F 98.9 F 98.1 F 02/23/17 02/23/17 02/24/17 18:05 18:15 06:00 Breakfast Lunch Supper 75% Temperature 98.3 F 97.9 F 02/24/17 09:17 Breakfast Lunch Supper Temperature 98 F Swallow is reduced in rate of onset and laryngeal excursion.Delayed unprotective cough with thin liquid, c/w aspiration. Continue puree/nectar/magic cup supplements MBS in future,as out pt, before diet upgraded.
[2017-02-24] MEDS: PANTOPRAZOLE 40 MG TABLET (FP) PO SCH ×2 (12:43→22:56)
[2017-02-24] MEDS: ATORVASTATIN CA 10 MG TABLET (FP) PO SCH (22:56)
[2017-02-24] MEDS: DONEPEZIL HCL 5 MG TABLET (FP) PO SCH (22:56)
[2017-02-24] MEDS: MIRTAZAPINE 15 MG TABLET (FP) PO SCH (22:56)
[2017-02-25] MEDS: MAG HYDROX/AL HYDROX/SIMETH 30 ML UNIT-DOSE CUP PO SCH ×3 (05:50→17:36)
[2017-02-25] MEDS: AMOX TR/POT CLAV 500MG/125MG TABLETS (FP) PO SCH ×2 (08:00→17:36)
[2017-02-25] MEDS: TAMSULOSIN HCL 0.4 MG CAP.ER.24H (FP) PO SCH (08:30)
--- NOTE | 2017-02-25 10:30 | PN ---
Progress Note (short form) - Note Progress Note: pt seen/ examined sitting in chair comfortable denies pain. poor historian no distress no obvious bleeding Vital Signs Temp 98.8 F 02/25/17 06:00 Pulse 69 02/25/17 06:00 Resp 18 02/25/17 06:00 BP 106/69 02/25/17 06:00 Pulse Ox 98 02/24/17 21:00 Intake & Output 02/24/17 02/24/17 02/25/17 11:59 23:59 11:59 Intake Total 100 200 50 Balance 100 200 50 Intake: Oral 100 200 50 Other: Voiding Method Incontinent Incontinent # Unmeasured Voids Void 2 1 1 Bowel Movement Yes Yes Yes # Bowel Movements 1 1 Active Medications Acetaminophen (Tylenol -) 650 mg PO Q6H PRN PRN Reason: FEVER OR PAIN Last Admin: 02/13/17 22:28 Dose: 650 mg Al Hydroxide/Mg Hydroxide (Mylanta Oral Suspension -) 30 ml PO Q6HPO [facility] Last Admin: 02/25/17 05:50 Dose: Not Given Amoxicillin/Clavulanate Potassium (Augmentin - 500mg Tablet) 1 tab PO BID@0800, 1730 [facility] Last Admin: 02/24/17 18:19 Dose: 1 tab Atorvastatin Calcium (Lipitor -) 10 mg PO [facility] Last Admin: 02/24/17 22:56 Dose: 10 mg Clotrimazole (Lotrimin 1% Cream -) 1 applic TP BID [facility] Last Admin: 02/24/17 22:56 Dose: 1 applic Donepezil HCl (Aricept -) 5 mg PO [facility] Last Admin: 02/24/17 22:56 Dose: 5 mg Memantine (Namenda -) 5 mg PO BID [facility] Last Admin: 02/24/17 22:56 Dose: 5 mg Metoprolol Succinate (Toprol Xl -) 50 mg PO DAILY [facility] Last Admin: 02/24/17 09:46 Dose: 50 mg Mirtazapine (Remeron -) 15 mg PO [facility] Last Admin: 02/24/17 22:56 Dose: 15 mg Pantoprazole Sodium (Protonix -) 40 mg PO BID [facility] Last Admin: 02/24/17 22:56 Dose: 40 mg Tamsulosin HCl (Flomax -) 0.4 mg PO DAILY@0830 [facility] Last Admin: 02/24/17 09:00 Dose: 0.4 mg CBC, BMP 02/22/17 07:30 02/22/17 07:30 Labs for today - ordered. Physical Exam. awake/ comfortable. lungs- Diminished at bases cvs- s1, s2 rrr abd - soft/ non tender ext- no edema neuro- awake- ASSESSMENT/PLAN: GI Bleed pneumonia Acute renal failure- better--back to baseline hypernatremia---dementia dementia Plan clinically stable Continue present care Po antibiotics Awaiting insurance authorization for rehabilitation Discussed with director case again today daily out of bed to chair--discussed with nursing staff also. Medically stable for discharge pending authorization. should benefit from rehab as need close monitoring / monitoring for bleed / electrolytes etc . encourge fluids will follow labs Problem List - Problems (1) Dementia Code(s): F03.90 - UNSPECIFIED DEMENTIA WITHOUT BEHAVIORAL DISTURBANCE (2) Fall Code(s): W19.XXXA - UNSPECIFIED FALL, INITIAL ENCOUNTER Qualifiers: Encounter type: initial encounter Qualified Code(s): W19.XXXA - Unspecified fall, initial encounter (3) Syncope Code(s): R55 - SYNCOPE AND COLLAPSE Qualifiers: Syncope type: unspecified Qualified Code(s): R55 - Syncope and collapse (4) Diabetes mellitus Code(s): E11.9 - TYPE 2 DIABETES MELLITUS WITHOUT COMPLICATIONS (5) Urinary retention due to benign prostatic hyperplasia Code(s): N40.1 - BENIGN PROSTATIC HYPERPLASIA WITH LOWER URINARY TRACT SYMP; R33.8 - OTHER RETENTION OF URINE
[2017-02-25] MEDS: PANTOPRAZOLE 40 MG TABLET (FP) PO SCH (10:45)
[2017-02-25] MEDS: MEMANTINE HCL 5 MG TABLET (UD) PO SCH (10:45)
[2017-02-25] MEDS: METOPROLOL SUCCINATE 50 MG TAB.SR.24H (FP) PO SCH (10:45)
[2017-02-25] MEDS: CLOTRIMAZOLE 1% CREAM 15 GM TUBE TP SCH (10:46)
[2017-02-25 11:26] LABS: BASO % 0.7 % (0-2.0); EOS % 2.6 % (0-4.5); HEMATOCRIT 31.1 % (35.4-49); HEMOGLOBIN 9.9 GM/dL (11.7-16.9); LYMPH % 18.1 % (8-40); MCH 27.7 pg (25.7-33.7); MCHC 31.7 g/dl (32.0-35.9); MEAN CELL VOLUME 87.3 fl (80-96); MEAN PLT VOLUME 7.6 fl (7.5-11.1); MONO % 5.7 % (3.8-10.2); NEUT % 72.9 % (42.8-82.8); PLATELET COUNT 436 K/MM3 (134-434); RBC 3.57 M/mm3 (4.00-5.60); RDW 15.9 % (11.9-15.9); WHITE BLOOD COUNT 6.9 K/mm3 (4.0-10.0)
[2017-02-25 11:56] LABS: ANION GAP 8 (8-16); BLOOD UREA NITROGEN 14 mg/dL (7-18); CALCIUM 8.9 mg/dL (8.5-10.1); CHLORIDE 104 mmol/L (98-107); CO2 30 mmol/L (21-32); GLUCOSE,RANDOM 144 mg/dL (74-106); POTASSIUM 4.8 mmol/L (3.5-5.1); SODIUM 142 mmol/L (136-145)
[2017-02-25 12:02] LABS: ALBUMIN 2.1 g/dl (3.4-5.0); ALK PHOS 86 U/L (45-117); BILIRUBIN,TOTAL 0.3 mg/dL (0.2-1.0); CREATININE 1.6 mg/dL (0.7-1.3); SGOT/AST 19 U/L (15-37); SGPT/ALT 30 U/L (12-78); TOT PROT 7.3 g/dl (6.4-8.2)
--- NOTE | 2017-02-25 18:25 | PN ---
Progress Note, Physician Chief Complaint: Pt with eyes open; mumbles nondiscernable replies to verbal queries. History of Present Illness: The patient is an 86 year old white male with a history of dementia, UTI, BBH, CVA, HTN, Anemia who presents from [facility] for evaluation following a syncopal episode. The patient is a poor historian and the long-term was contacted for the history. The patient had a ureteral stent placed on 01/31/17. They report that the patient had an unwitnessed fall earlier today at 3am. They report that the patient then had a syncopal episode after an hour of PT prompting his presentation to the ED today. It is unclear if the patient experienced any head trauma. The patient denies any complaints at this time besides some mild generalized weakness and does not recall the event. He denies fevers, chills, headache, SOB, chest pain, abdominal pain. - Current Medication List Current Medications: Active Medications Acetaminophen (Tylenol -) 650 mg PO Q6H PRN PRN Reason: FEVER OR PAIN Last Admin: 02/13/17 22:28 Dose: 650 mg Al Hydroxide/Mg Hydroxide (Mylanta Oral Suspension -) 30 ml PO Q6HPO [facility] Last Admin: 02/25/17 17:36 Dose: 30 ml Amoxicillin/Clavulanate Potassium (Augmentin - 500mg Tablet) 1 tab PO BID@0800, 1730 [facility] Last Admin: 02/25/17 17:36 Dose: 1 tab Atorvastatin Calcium (Lipitor -) 10 mg PO HS [facility] Last Admin: 02/24/17 22:56 Dose: 10 mg Clotrimazole (Lotrimin 1% Cream -) 1 applic TP BID [facility] Last Admin: 02/25/17 10:46 Dose: 1 applic Donepezil HCl (Aricept -) 5 mg PO HS [facility] Last Admin: 02/24/17 22:56 Dose: 5 mg Memantine (Namenda -) 5 mg PO BID [facility] Last Admin: 02/25/17 10:45 Dose: 5 mg Metoprolol Succinate (Toprol Xl -) 50 mg PO DAILY [facility] Last Admin: 02/25/17 10:45 Dose: 50 mg Mirtazapine (Remeron -) 15 mg PO HS [facility] Last Admin: 02/24/17 22:56 Dose: 15 mg Pantoprazole Sodium (Protonix -) 40 mg PO BID [facility] Last Admin: 02/25/17 10:45 Dose: 40 mg Tamsulosin HCl (Flomax -) 0.4 mg PO DAILY@0830 [facility] Last Admin: 02/25/17 08:30 Dose: 0.4 mg - Objective Vital Signs: Vital Signs Temperature 97.9 F 02/25/17 14:30 Pulse Rate 78 02/25/17 14:30 Respiratory Rate 18 02/25/17 14:30 Blood Pressure 111/71 02/25/17 14:30 O2 Sat by Pulse Oximetry (%) 99 02/25/17 09:00 Constitutional: Yes: Thin Eyes: Yes: WNL HENT: Yes: WNL Neck: Yes: WNL Cardiovascular: Yes: S1, S2 Respiratory: Yes: Regular Gastrointestinal: Yes: Soft ...Rectal Exam: Yes: Deferred Genitourinary: No: Anuria Musculoskeletal: Yes: Muscle Weakness Extremities: Yes: Cool Edema: No Peripheral Pulses WNL: Yes Integumentary: Yes: WNL Neurological: Yes: Confusion, Weakness Psychiatric: Yes: Other (dementia) Labs: CBC, BMP 02/25/17 10:55 02/25/17 10:55 INR, PTT INR 1.24 (0.82-1.09) H 02/14/17 07:45 Problem List - Problems (1) Dementia Assessment/Plan: f/u with psychiatry,neurology. continued periods of confusion. Code(s): F03.90 - UNSPECIFIED DEMENTIA WITHOUT BEHAVIORAL DISTURBANCE (2) Anemia Assessment/Plan: duodenal ulcer. F/u with GI, hematology. Code(s): D64.9 - ANEMIA, UNSPECIFIED Qualifiers: Other causes of anemia: acute posthemorrhagic (3) Fall Code(s): W19.XXXA - UNSPECIFIED FALL, INITIAL ENCOUNTER Qualifiers: Encounter type: initial encounter Qualified Code(s): W19.XXXA - Unspecified fall, initial encounter (4) Syncope Assessment/Plan: orthostatic VS EKG: normal study. CXR: no acute changes. Normal LVEF on ECHO; no significant . Maintain hydration. Carotid US: no significant disease. Ct head: no acute pathology. Hx dementia. Duodenal ulcer with periods of bleeding-->anemia may be etiology. Code(s): R55 - SYNCOPE AND COLLAPSE Qualifiers: Syncope type: unspecified Qualified Code(s): R55 - Syncope and collapse (5) Diabetes mellitus Code(s): E11.9 - TYPE 2 DIABETES MELLITUS WITHOUT COMPLICATIONS (6) Hypoalbuminemia Assessment/Plan: poor nutritional status. Code(s): E88.09 - OTH DISORDERS OF PLASMA-PROTEIN METABOLISM, NEC (7) Duodenal ulcer Assessment/Plan: bleeding under control, per GI. Code(s): K26.9 - DUODENAL ULCER, UNSP ACUTE OR CHRONIC, W/O HEMOR OR PERF (8) HTN (hypertension) Assessment/Plan: changed to metoprolol ER for better 24 hour coverage. EKG: normal study (resolved ST-T changes). Code(s): I10 - ESSENTIAL (PRIMARY) HYPERTENSION
--- NOTE | 2017-02-25 18:26 | PN ---
Progress Note, Physician Chief Complaint: Pt with eyes open; does not follow commands. History of Present Illness: The patient is an 86 year old white male with a history of dementia, UTI, BBH, CVA, HTN, Anemia who presents from [facility] for evaluation following a syncopal episode. The patient is a poor historian and the [facility] was contacted for the history. The patient had a ureteral stent placed on 01/31/17. They report that the patient had an unwitnessed fall earlier today at 3am. They report that the patient then had a syncopal episode after an hour of PT prompting his presentation to the ED today. It is unclear if the patient experienced any head trauma. The patient denies any complaints at this time besides some mild generalized weakness and does not recall the event. He denies fevers, chills, headache, SOB, chest pain, abdominal pain. - Current Medication List Current Medications: Active Medications Acetaminophen (Tylenol -) 650 mg PO Q6H PRN PRN Reason: FEVER OR PAIN Last Admin: 02/13/17 22:28 Dose: 650 mg Al Hydroxide/Mg Hydroxide (Mylanta Oral Suspension -) 30 ml PO Q6HPO [facility] Last Admin: 02/25/17 17:36 Dose: 30 ml Amoxicillin/Clavulanate Potassium (Augmentin - 500mg Tablet) 1 tab PO BID@0800, 1730 [facility] Last Admin: 02/25/17 17:36 Dose: 1 tab Atorvastatin Calcium (Lipitor -) 10 mg PO HS [facility] Last Admin: 02/24/17 22:56 Dose: 10 mg Clotrimazole (Lotrimin 1% Cream -) 1 applic TP BID [facility] Last Admin: 02/25/17 10:46 Dose: 1 applic Donepezil HCl (Aricept -) 5 mg PO [facility] Last Admin: 02/24/17 22:56 Dose: 5 mg Memantine (Namenda -) 5 mg PO BID [facility] Last Admin: 02/25/17 10:45 Dose: 5 mg Metoprolol Succinate (Toprol Xl -) 50 mg PO DAILY [facility] Last Admin: 02/25/17 10:45 Dose: 50 mg Mirtazapine (Remeron -) 15 mg PO [facility] Last Admin: 02/24/17 22:56 Dose: 15 mg Pantoprazole Sodium (Protonix -) 40 mg PO BID [facility] Last Admin: 02/25/17 10:45 Dose: 40 mg Tamsulosin HCl (Flomax -) 0.4 mg PO DAILY@0830 [facility] Last Admin: 02/25/17 08:30 Dose: 0.4 mg - Objective Vital Signs: Vital Signs Temperature 97.9 F 02/25/17 14:30 Pulse Rate 78 02/25/17 14:30 Respiratory Rate 18 02/25/17 14:30 Blood Pressure 111/71 02/25/17 14:30 O2 Sat by Pulse Oximetry (%) 99 02/25/17 09:00 Constitutional: Yes: Thin Eyes: Yes: WNL HENT: Yes: WNL Neck: Yes: WNL Cardiovascular: Yes: S1, S2 Respiratory: Yes: Regular Gastrointestinal: Yes: Soft Genitourinary: No: Anuria Musculoskeletal: Yes: Muscle Weakness Extremities: Yes: Cool Edema: No Peripheral Pulses WNL: Yes Integumentary: Yes: WNL Neurological: Yes: Confusion, Weakness Psychiatric: Yes: Other Labs: CBC, BMP 02/25/17 10:55 02/25/17 10:55 INR, PTT INR 1.24 (0.82-1.09) H 02/14/17 07:45 Abnormal Lab Results 02/25/17 02/25/17 10:55 10:55 RBC 3.57 L Hgb 9.9 L D Hct 31.1 L MCHC 31.7 L Plt Count 436 H D Creatinine 1.6 H D Random Glucose 144 H D Albumin 2.1 L D Problem List - Problems (1) Dementia Assessment/Plan: f/u with psychiatry,neurology. continued periods of confusion. Code(s): F03.90 - UNSPECIFIED DEMENTIA WITHOUT BEHAVIORAL DISTURBANCE (2) Anemia Assessment/Plan: duodenal ulcer. F/u with GI, hematology. Code(s): D64.9 - ANEMIA, UNSPECIFIED Qualifiers: Other causes of anemia: acute posthemorrhagic (3) Fall Code(s): W19.XXXA - UNSPECIFIED FALL, INITIAL ENCOUNTER Qualifiers: Encounter type: initial encounter Qualified Code(s): W19.XXXA - Unspecified fall, initial encounter (4) Syncope Assessment/Plan: orthostatic VS EKG: normal study. CXR: no acute changes. Normal LVEF on ECHO; no significant . Maintain hydration. Carotid US: no significant disease. Ct head: no acute pathology. Hx dementia. Duodenal ulcer with periods of bleeding-->anemia may be etiology. Code(s): R55 - SYNCOPE AND COLLAPSE Qualifiers: Syncope type: unspecified Qualified Code(s): R55 - Syncope and collapse (5) Diabetes mellitus Code(s): E11.9 - TYPE 2 DIABETES MELLITUS WITHOUT COMPLICATIONS (6) Hypoalbuminemia Assessment/Plan: improved to 2.1 Code(s): E88.09 - OTH DISORDERS OF PLASMA-PROTEIN METABOLISM, NEC (7) Duodenal ulcer Assessment/Plan: bleeding under control, per GI. Code(s): K26.9 - DUODENAL ULCER, UNSP ACUTE OR CHRONIC, W/O HEMOR OR PERF (8) Elevated LFTs Assessment/Plan: now WNL. Code(s): R79.89 - OTHER SPECIFIED ABNORMAL FINDINGS OF BLOOD CHEMISTRY (9) HTN (hypertension) Assessment/Plan: changed to metoprolol ER for better 24 hour coverage. EKG: normal study (resolved ST-T changes). Code(s): I10 - ESSENTIAL (PRIMARY) HYPERTENSION
[2017-02-26] MEDS: MEMANTINE HCL 5 MG TABLET (UD) PO SCH ×3 (00:19→22:15)
[2017-02-26] MEDS: ATORVASTATIN CA 10 MG TABLET (FP) PO SCH ×2 (00:19→22:15)
[2017-02-26] MEDS: DONEPEZIL HCL 5 MG TABLET (FP) PO SCH ×2 (00:19→22:14)
[2017-02-26] MEDS: MAG HYDROX/AL HYDROX/SIMETH 30 ML UNIT-DOSE CUP PO SCH ×4 (00:20→18:37)
[2017-02-26] MEDS: MIRTAZAPINE 15 MG TABLET (FP) PO SCH ×2 (00:20→22:14)
[2017-02-26] MEDS: PANTOPRAZOLE 40 MG TABLET (FP) PO SCH ×3 (00:20→22:15)
[2017-02-26] MEDS ORDERED: PT OWN MED DRAWER 7, Y5N ONE ×2 (00:22→11:05)
[2017-02-26] MEDS: CLOTRIMAZOLE 1% CREAM 15 GM TUBE TP SCH ×3 (02:16→22:15)
--- NOTE | 2017-02-26 09:45 | PN ---
Progress Note, Physician History of Present Illness: The patient is an 86 year old male with a history of dementia, UTI, BBH, CVA, HTN, Anemia who presents from [facility] for evaluation following a syncopal episode. The patient is a poor historian and the detention was contacted for the history. The patient had a ureteral stent placed on . They report that the patient had an unwitnessed fall earlier today at 3am. They report that the patient then had a syncopal episode after an hour of PT prompting his presentation to the ED today. It is unclear if the patient experienced any head trauma. The patient denies any complaints at this time besides some mild generalized weakness and does not recall the event. He denies fevers, chills, headache, SOB, chest pain, abdominal pain. - Current Medication List Current Medications: Active Medications Acetaminophen (Tylenol -) 650 mg PO Q6H PRN PRN Reason: FEVER OR PAIN Last Admin: 02/13/17 22:28 Dose: 650 mg Al Hydroxide/Mg Hydroxide (Mylanta Oral Suspension -) 30 ml PO Q6HPO [facility] Last Admin: 02/26/17 06:38 Dose: 30 ml Amoxicillin/Clavulanate Potassium (Augmentin - 500mg Tablet) 1 tab PO BID@0800, 1730 [facility] Last Admin: 02/25/17 17:36 Dose: 1 tab Atorvastatin Calcium (Lipitor -) 10 mg PO [facility] Last Admin: 02/26/17 00:19 Dose: 10 mg Clotrimazole (Lotrimin 1% Cream -) 1 applic TP BID [facility] Last Admin: 02/26/17 02:16 Dose: 1 applic Donepezil HCl (Aricept -) 5 mg PO [facility] Last Admin: 02/26/17 00:19 Dose: 5 mg Memantine (Namenda -) 5 mg PO BID [facility] Last Admin: 02/26/17 00:19 Dose: 5 mg Metoprolol Succinate (Toprol Xl -) 50 mg PO DAILY [facility] Last Admin: 02/25/17 10:45 Dose: 50 mg Mirtazapine (Remeron -) 15 mg PO [facility] Last Admin: 02/26/17 00:20 Dose: 15 mg Pantoprazole Sodium (Protonix -) 40 mg PO BID [facility] Last Admin: 02/26/17 00:20 Dose: 40 mg Tamsulosin HCl (Flomax -) 0.4 mg PO DAILY@0830 [facility] Last Admin: 02/25/17 08:30 Dose: 0.4 mg - Objective Vital Signs: Vital Signs Temperature 98.1 F 02/26/17 06:00 Pulse Rate 65 02/26/17 06:00 Respiratory Rate 18 02/26/17 06:00 Blood Pressure 109/65 02/26/17 06:00 O2 Sat by Pulse Oximetry (%) 99 02/25/17 09:00 Eyes: Yes: WNL, Conjunctiva Clear, EOM Intact HENT: Yes: WNL, Atraumatic, Normocephalic Neck: Yes: WNL, Supple, Trachea Midline Cardiovascular: Yes: WNL, Regular Rate and Rhythm Respiratory: Yes: WNL, Regular, CTA Bilaterally Gastrointestinal: Yes: WNL, Normal Bowel Sounds Genitourinary: Yes: WNL Musculoskeletal: Yes: WNL Extremities: Yes: WNL Edema: No Integumentary: Yes: WNL Neurological: Yes: WNL, Alert, Oriented ...Motor Strength: WNL Psychiatric: Yes: WNL Labs: CBC, BMP 02/25/17 10:55 02/25/17 10:55 INR, PTT INR 1.24 (0.82-1.09) H 02/14/17 07:45 Assessment/Plan - Problems (1) Dementia Assessment/Plan: f/u with psychiatry,neurology. continued periods of confusion. Code(s): F03.90 - UNSPECIFIED DEMENTIA WITHOUT BEHAVIORAL DISTURBANCE (2) Anemia Assessment/Plan: duodenal ulcer. F/u with GI, hematology. Code(s): D64.9 - ANEMIA, UNSPECIFIED Qualifiers: Other causes of anemia: acute posthemorrhagic (3) Fall Code(s): W19.XXXA - UNSPECIFIED FALL, INITIAL ENCOUNTER Qualifiers: Encounter type: initial encounter Qualified Code(s): W19.XXXA - Unspecified fall, initial encounter (4) Syncope Assessment/Plan: orthostatic VS EKG: normal study. CXR: no acute changes. Normal LVEF on ECHO; no significant . Maintain hydration. Carotid US: no significant disease. Ct head: no acute pathology. Hx dementia. Duodenal ulcer with periods of bleeding-->anemia may be etiology. Code(s): R55 - SYNCOPE AND COLLAPSE Qualifiers: Syncope type: unspecified Qualified Code(s): R55 - Syncope and collapse (5) Diabetes mellitus Code(s): E11.9 - TYPE 2 DIABETES MELLITUS WITHOUT COMPLICATIONS (6) Hypoalbuminemia Assessment/Plan: improved to 2.1 Code(s): E88.09 - [facility] DISORDERS OF PLASMA-PROTEIN METABOLISM, NEC (7) Duodenal ulcer Assessment/Plan: bleeding under control, per GI. Code(s): K26.9 - DUODENAL ULCER, UNSP ACUTE OR CHRONIC, W/O HEMOR OR PERF (8) Elevated LFTs Assessment/Plan: now WNL. Code(s): R79.89 - OTHER SPECIFIED ABNORMAL FINDINGS OF BLOOD CHEMISTRY (9) HTN (hypertension) Assessment/Plan: changed to metoprolol ER for better 24 hour coverage. EKG: normal study (resolved ST-T changes). Code(s): I10 - ESSENTIAL (PRIMARY) HYPERTENSION
[2017-02-26] MEDS: TAMSULOSIN HCL 0.4 MG CAP.ER.24H (FP) PO SCH (11:06)
[2017-02-26] MEDS: METOPROLOL SUCCINATE 50 MG TAB.SR.24H (FP) PO SCH (11:06)
[2017-02-26] MEDS: AMOX TR/POT CLAV 500MG/125MG TABLETS (FP) PO SCH ×2 (11:07→18:37)
--- NOTE | 2017-02-26 14:34 | PN ---
Progress Note (short form) - Note Progress Note: comfortable no new issues remains stable Vital Signs Temp 98.6 F 02/26/17 10:00 Pulse 75 02/26/17 10:00 Resp 18 02/26/17 10:00 BP 120/72 02/26/17 10:00 Pulse Ox 99 02/25/17 09:00 Intake & Output 02/25/17 02/26/17 02/26/17 23:59 11:59 23:59 Intake Total 0 Output Total 500 Balance -500 Intake: IVPB 0 Output: Urine 500 Void 500 Other: Voiding Method Incontinent Incontinent # Unmeasured Voids Void 3 1 Bowel Movement Yes: watery Yes # Bowel Movements 3 Active Medications Acetaminophen (Tylenol -) 650 mg PO Q6H PRN PRN Reason: FEVER OR PAIN Last Admin: 02/13/17 22:28 Dose: 650 mg Al Hydroxide/Mg Hydroxide (Mylanta Oral Suspension -) 30 ml PO Q6HPO [facility] Last Admin: 02/26/17 11:06 Dose: 30 ml Amoxicillin/Clavulanate Potassium (Augmentin - 500mg Tablet) 1 tab PO BID@0800, 1730 [facility] Last Admin: 02/26/17 11:07 Dose: 1 tab Atorvastatin Calcium (Lipitor -) 10 mg PO [facility] Last Admin: 02/26/17 00:19 Dose: 10 mg Clotrimazole (Lotrimin 1% Cream -) 1 applic TP BID [facility] Last Admin: 02/26/17 11:08 Dose: 1 applic Donepezil HCl (Aricept -) 5 mg PO [facility] Last Admin: 02/26/17 00:19 Dose: 5 mg Memantine (Namenda -) 5 mg PO BID [facility] Last Admin: 02/26/17 11:07 Dose: 5 mg Metoprolol Succinate (Toprol Xl -) 50 mg PO DAILY [facility] Last Admin: 02/26/17 11:06 Dose: 50 mg Mirtazapine (Remeron -) 15 mg PO [facility] Last Admin: 02/26/17 00:20 Dose: 15 mg Pantoprazole Sodium (Protonix -) 40 mg PO BID [facility] Last Admin: 02/26/17 11:07 Dose: 40 mg Tamsulosin HCl (Flomax -) 0.4 mg PO DAILY@0830 [facility] Last Admin: 02/26/17 11:06 Dose: 0.4 mg CBC, BMP 02/25/17 10:55 02/25/17 10:55 Physical Exam. awake/ comfortable. lungs- Diminished at bases cvs- s1, s2 rrr abd - soft/ non tender ext- no edema neuro- awake-poor historian / forgetful ASSESSMENT/PLAN: GI Bleed pneumonia Acute renal failure- better--back to baseline hypernatremia---dementia dementia Plan clinically stable Continue present care Po antibiotics Awaiting insurance authorization for rehabilitation daily out of bed to chair--discussed with nursing staff also. Medically stable for discharge pending authorization. should benefit from rehab as need close monitoring / monitoring for bleed / electrolytes etc . encourge fluids labs noted. Problem List - Problems (1) Dementia Code(s): F03.90 - UNSPECIFIED DEMENTIA WITHOUT BEHAVIORAL DISTURBANCE (2) Fall Code(s): W19.XXXA - UNSPECIFIED FALL, INITIAL ENCOUNTER Qualifiers: Encounter type: initial encounter Qualified Code(s): W19.XXXA - Unspecified fall, initial encounter (3) Syncope Code(s): R55 - SYNCOPE AND COLLAPSE Qualifiers: Syncope type: unspecified Qualified Code(s): R55 - Syncope and collapse (4) Diabetes mellitus Code(s): E11.9 - TYPE 2 DIABETES MELLITUS WITHOUT COMPLICATIONS (5) Urinary retention due to benign prostatic hyperplasia Code(s): N40.1 - BENIGN PROSTATIC HYPERPLASIA WITH LOWER URINARY TRACT SYMP; R33.8 - OTHER RETENTION OF URINE
[2017-02-27] MEDS: MAG HYDROX/AL HYDROX/SIMETH 30 ML UNIT-DOSE CUP PO SCH ×5 (00:01→23:01)
[2017-02-27] MEDS ORDERED: PT OWN MED DRAWER 7, Y5N ONE ×2 (08:27→19:35)
--- NOTE | 2017-02-27 08:40 | PN ---
Progress Note, Physician History of Present Illness: The patient is an 86 year old male with a history of dementia, UTI, BBH, CVA, HTN, Anemia who presents from [facility] for evaluation following a syncopal episode. The patient is a poor historian and the skilled nursing was contacted for the history. The patient had a ureteral stent placed on . They report that the patient had an unwitnessed fall earlier today at 3am. They report that the patient then had a syncopal episode after an hour of PT prompting his presentation to the ED today. It is unclear if the patient experienced any head trauma. The patient denies any complaints at this time besides some mild generalized weakness and does not recall the event. He denies fevers, chills, headache, SOB, chest pain, abdominal pain. - Current Medication List Current Medications: Active Medications Acetaminophen (Tylenol -) 650 mg PO Q6H PRN PRN Reason: FEVER OR PAIN Last Admin: 02/13/17 22:28 Dose: 650 mg Al Hydroxide/Mg Hydroxide (Mylanta Oral Suspension -) 30 ml PO Q6HPO [facility] Last Admin: 02/27/17 06:32 Dose: Not Given Amoxicillin/Clavulanate Potassium (Augmentin - 500mg Tablet) 1 tab PO BID@0800, 1730 [facility] Last Admin: 02/26/17 18:37 Dose: 1 tab Atorvastatin Calcium (Lipitor -) 10 mg PO [facility] Last Admin: 02/26/17 22:15 Dose: 10 mg Clotrimazole (Lotrimin 1% Cream -) 1 applic TP BID [facility] Last Admin: 02/26/17 22:15 Dose: 1 applic Donepezil HCl (Aricept -) 5 mg PO [facility] Last Admin: 02/26/17 22:14 Dose: 5 mg Memantine (Namenda -) 5 mg PO BID [facility] Last Admin: 02/26/17 22:15 Dose: 5 mg Metoprolol Succinate (Toprol Xl -) 50 mg PO DAILY [facility] Last Admin: 02/26/17 11:06 Dose: 50 mg Mirtazapine (Remeron -) 15 mg PO [facility] Last Admin: 02/26/17 22:14 Dose: 15 mg Pantoprazole Sodium (Protonix -) 40 mg PO BID [facility] Last Admin: 02/26/17 22:15 Dose: 40 mg Tamsulosin HCl (Flomax -) 0.4 mg PO DAILY@0830 [facility] Last Admin: 02/26/17 11:06 Dose: 0.4 mg - Objective Vital Signs: Vital Signs Temperature 97.0 F L 02/27/17 06:00 Pulse Rate 70 02/27/17 06:00 Respiratory Rate 20 02/27/17 06:00 Blood Pressure 138/63 02/27/17 06:00 O2 Sat by Pulse Oximetry (%) 96 02/26/17 21:00 Eyes: Yes: WNL, Conjunctiva Clear, EOM Intact HENT: Yes: WNL, Atraumatic, Normocephalic Neck: Yes: WNL, Supple, Trachea Midline Cardiovascular: Yes: WNL, Regular Rate and Rhythm Respiratory: Yes: WNL, Regular, CTA Bilaterally Gastrointestinal: Yes: WNL, Normal Bowel Sounds Genitourinary: Yes: WNL Musculoskeletal: Yes: WNL Extremities: Yes: WNL Edema: No Integumentary: Yes: WNL Neurological: Yes: WNL, Alert, Oriented ...Motor Strength: WNL Psychiatric: Yes: WNL Labs: CBC, BMP 02/25/17 10:55 02/25/17 10:55 INR, PTT INR 1.24 (0.82-1.09) H 02/14/17 07:45 Assessment/Plan - Problems (1) Dementia Assessment/Plan: f/u with psychiatry,neurology. continued periods of confusion. Code(s): F03.90 - UNSPECIFIED DEMENTIA WITHOUT BEHAVIORAL DISTURBANCE (2) Anemia Assessment/Plan: duodenal ulcer. F/u with GI, hematology. Code(s): D64.9 - ANEMIA, UNSPECIFIED Qualifiers: Other causes of anemia: acute posthemorrhagic (3) Fall Code(s): W19.XXXA - UNSPECIFIED FALL, INITIAL ENCOUNTER Qualifiers: Encounter type: initial encounter Qualified Code(s): W19.XXXA - Unspecified fall, initial encounter (4) Syncope Assessment/Plan: orthostatic VS EKG: normal study. CXR: no acute changes. Normal LVEF on ECHO; no significant . Maintain hydration. Carotid US: no significant disease. Ct head: no acute pathology. Hx dementia. Duodenal ulcer with periods of bleeding-->anemia may be etiology. Code(s): R55 - SYNCOPE AND COLLAPSE Qualifiers: Syncope type: unspecified Qualified Code(s): R55 - Syncope and collapse (5) Diabetes mellitus Code(s): E11.9 - TYPE 2 DIABETES MELLITUS WITHOUT COMPLICATIONS (6) Hypoalbuminemia Assessment/Plan: improved to 2.1 Code(s): E88.09 - [facility] DISORDERS OF PLASMA-PROTEIN METABOLISM, NEC (7) Duodenal ulcer Assessment/Plan: bleeding under control, per GI. Code(s): K26.9 - DUODENAL ULCER, UNSP ACUTE OR CHRONIC, W/O HEMOR OR PERF (8) Elevated LFTs Assessment/Plan: now WNL. Code(s): R79.89 - OTHER SPECIFIED ABNORMAL FINDINGS OF BLOOD CHEMISTRY (9) HTN (hypertension) Assessment/Plan: changed to metoprolol ER for better 24 hour coverage. EKG: normal study (resolved ST-T changes). Code(s): I10 - ESSENTIAL (PRIMARY) HYPERTENSION
[2017-02-27] MEDS: TAMSULOSIN HCL 0.4 MG CAP.ER.24H (FP) PO SCH (08:42)
[2017-02-27] MEDS: AMOX TR/POT CLAV 500MG/125MG TABLETS (FP) PO SCH ×2 (09:33→17:19)
[2017-02-27] MEDS: MEMANTINE HCL 5 MG TABLET (UD) PO SCH ×2 (09:34→21:46)
[2017-02-27] MEDS: CLOTRIMAZOLE 1% CREAM 15 GM TUBE TP SCH ×2 (09:34→21:46)
[2017-02-27] MEDS: PANTOPRAZOLE 40 MG TABLET (FP) PO SCH ×2 (09:36→21:46)
[2017-02-27] MEDS: METOPROLOL SUCCINATE 50 MG TAB.SR.24H (FP) PO SCH (09:36)
--- NOTE | 2017-02-27 13:13 | PN ---
Progress Note (short form) - Note Progress Note: comfortable no new issues remains stable. denies any pain Vital Signs Temp 97.8 F 02/27/17 09:42 Pulse 74 02/27/17 09:42 Resp 20 02/27/17 09:42 BP 128/79 02/27/17 09:42 Pulse Ox 96 02/26/17 21:00 Intake & Output 02/26/17 02/27/17 02/27/17 23:59 11:59 23:59 Intake Total 1460 50 Balance 1460 50 Intake: Oral 1460 50 Other: Voiding Method Incontinent Incontinent # Unmeasured Voids Void 1 1 Bowel Movement Yes Yes # Bowel Movements 1 1 Active Medications Acetaminophen (Tylenol -) 650 mg PO Q6H PRN PRN Reason: FEVER OR PAIN Last Admin: 02/13/17 22:28 Dose: 650 mg Al Hydroxide/Mg Hydroxide (Mylanta Oral Suspension -) 30 ml PO Q6HPO [facility] Last Admin: 02/26/17 11:06 Dose: 30 ml Amoxicillin/Clavulanate Potassium (Augmentin - 500mg Tablet) 1 tab PO BID@0800, 1730 [facility] Last Admin: 02/26/17 11:07 Dose: 1 tab Atorvastatin Calcium (Lipitor -) 10 mg PO [facility] Last Admin: 02/26/17 00:19 Dose: 10 mg Clotrimazole (Lotrimin 1% Cream -) 1 applic TP BID [facility] Last Admin: 02/26/17 11:08 Dose: 1 applic Donepezil HCl (Aricept -) 5 mg PO [facility] Last Admin: 02/26/17 00:19 Dose: 5 mg Memantine (Namenda -) 5 mg PO BID [facility] Last Admin: 02/26/17 11:07 Dose: 5 mg Metoprolol Succinate (Toprol Xl -) 50 mg PO DAILY [facility] Last Admin: 02/26/17 11:06 Dose: 50 mg Mirtazapine (Remeron -) 15 mg PO [facility] Last Admin: 02/26/17 00:20 Dose: 15 mg Pantoprazole Sodium (Protonix -) 40 mg PO BID [facility] Last Admin: 02/26/17 11:07 Dose: 40 mg Tamsulosin HCl (Flomax -) 0.4 mg PO DAILY@0830 [facility] Last Admin: 02/26/17 11:06 Dose: 0.4 mg CBC, BMP 02/25/17 10:55 02/25/17 10:55 Physical Exam. awake/ comfortable. lungs- Diminished at bases cvs- s1, s2 rrr abd - soft/ non tender ext- no edema neuro- awake-poor historian / forgetful ASSESSMENT/PLAN: GI Bleed pneumonia Acute renal failure- better--back to baseline hypernatremia---dementia dementia Plan clinically stable Continue present care Po antibiotics Awaiting insurance authorization for rehabilitation daily out of bed to chair--discussed with nursing staff also. Medically stable for discharge pending authorization. should benefit from rehab as need close monitoring / monitoring for bleed / electrolytes etc . encourage fluids will follow Problem List - Problems (1) Dementia Code(s): F03.90 - UNSPECIFIED DEMENTIA WITHOUT BEHAVIORAL DISTURBANCE (2) Fall Code(s): W19.XXXA - UNSPECIFIED FALL, INITIAL ENCOUNTER Qualifiers: Encounter type: initial encounter Qualified Code(s): W19.XXXA - Unspecified fall, initial encounter (3) Syncope Code(s): R55 - SYNCOPE AND COLLAPSE Qualifiers: Syncope type: unspecified Qualified Code(s): R55 - Syncope and collapse (4) Diabetes mellitus Code(s): E11.9 - TYPE 2 DIABETES MELLITUS WITHOUT COMPLICATIONS (5) Urinary retention due to benign prostatic hyperplasia Code(s): N40.1 - BENIGN PROSTATIC HYPERPLASIA WITH LOWER URINARY TRACT SYMP; R33.8 - OTHER RETENTION OF URINE
[2017-02-27 15:39] VITALS: TEMP 97.9
[2017-02-27] MEDS: MIRTAZAPINE 15 MG TABLET (FP) PO SCH (21:46)
[2017-02-27] MEDS: DONEPEZIL HCL 5 MG TABLET (FP) PO SCH (21:46)
[2017-02-27] MEDS: ATORVASTATIN CA 10 MG TABLET (FP) PO SCH (21:46)
[2017-02-28] MEDS: MAG HYDROX/AL HYDROX/SIMETH 30 ML UNIT-DOSE CUP PO SCH (06:22)
[2017-02-28 06:31] VITALS: PULSE 65
[2017-02-28] MEDS: AMOX TR/POT CLAV 500MG/125MG TABLETS (FP) PO SCH (09:36)
[2017-02-28] MEDS: CLOTRIMAZOLE 1% CREAM 15 GM TUBE TP SCH (09:37)
[2017-02-28] MEDS: METOPROLOL SUCCINATE 50 MG TAB.SR.24H (FP) PO SCH (09:37)
[2017-02-28] MEDS: MEMANTINE HCL 5 MG TABLET (UD) PO SCH (09:37)
[2017-02-28] MEDS: TAMSULOSIN HCL 0.4 MG CAP.ER.24H (FP) PO SCH (09:37)
[2017-02-28] MEDS: PANTOPRAZOLE 40 MG TABLET (FP) PO SCH (09:37)
--- NOTE | 2017-02-28 09:53 | PN ---
Progress Note (short form) - Note Progress Note: pt comfortable no distress condition stable insurance approved for str Vital Signs Temp 97.9 F 02/28/17 06:00 Pulse 65 02/28/17 06:00 Resp 18 02/28/17 06:00 BP 127/58 02/28/17 06:00 Pulse Ox 94 L 02/27/17 21:00 Intake & Output 02/27/17 02/27/17 02/28/17 11:59 23:59 11:59 Intake Total 50 790 200 Balance 50 790 200 Intake: IV 0 Diprivan - 20 ml UD . 0 ROUTE .STK-MED ONE Rx#: [id number] new sl for blood 0 Oral 50 790 200 Other: Voiding Method Incontinent Incontinent # Unmeasured Voids Void 1 1 1 Bowel Movement Yes Yes # Bowel Movements 1 1 Active Medications Acetaminophen (Tylenol -) 650 mg PO Q6H PRN PRN Reason: FEVER OR PAIN Last Admin: 02/13/17 22:28 Dose: 650 mg Al Hydroxide/Mg Hydroxide (Mylanta Oral Suspension -) 30 ml PO Q6HPO [facility] Last Admin: 02/28/17 06:22 Dose: 30 ml Amoxicillin/Clavulanate Potassium (Augmentin - 500mg Tablet) 1 tab PO BID@0800, 1730 [facility] Last Admin: 02/28/17 09:36 Dose: 1 tab Atorvastatin Calcium (Lipitor -) 10 mg PO [facility] Last Admin: 02/27/17 21:46 Dose: 10 mg Clotrimazole (Lotrimin 1% Cream -) 1 applic TP BID [facility] Last Admin: 02/28/17 09:37 Dose: 1 applic Donepezil HCl (Aricept -) 5 mg PO [facility] Last Admin: 02/27/17 21:46 Dose: 5 mg Memantine (Namenda -) 5 mg PO BID [facility] Last Admin: 02/28/17 09:37 Dose: 5 mg Metoprolol Succinate (Toprol Xl -) 50 mg PO DAILY [facility] Last Admin: 02/28/17 09:37 Dose: 50 mg Mirtazapine (Remeron -) 15 mg PO [facility] Last Admin: 02/27/17 21:46 Dose: 15 mg Pantoprazole Sodium (Protonix -) 40 mg PO BID [facility] Last Admin: 02/28/17 09:37 Dose: 40 mg Tamsulosin HCl (Flomax -) 0.4 mg PO DAILY@0830 [facility] Last Admin: 02/28/17 09:37 Dose: 0.4 mg CBC, BMP 02/25/17 10:55 02/25/17 10:55 Physical Exam. awake/ comfortable. lungs- Diminished at bases cvs- s1, s2 rrr abd - soft/ non tender ext- no edema neuro- awake-poor historian / forgetful ASSESSMENT/PLAN: GI Bleed pneumonia Acute renal failure- better--back to baseline hypernatremia---dementia dementia Plan clinically stable Continue present care Medically stable for discharge. see detailed d/c summary of 02/22/17. . Problem List - Problems (1) Dementia Code(s): F03.90 - UNSPECIFIED DEMENTIA WITHOUT BEHAVIORAL DISTURBANCE (2) Fall Code(s): W19.XXXA - UNSPECIFIED FALL, INITIAL ENCOUNTER Qualifiers: Encounter type: initial encounter Qualified Code(s): W19.XXXA - Unspecified fall, initial encounter (3) Syncope Code(s): R55 - SYNCOPE AND COLLAPSE Qualifiers: Syncope type: unspecified Qualified Code(s): R55 - Syncope and collapse (4) Diabetes mellitus Code(s): E11.9 - TYPE 2 DIABETES MELLITUS WITHOUT COMPLICATIONS (5) Urinary retention due to benign prostatic hyperplasia Code(s): N40.1 - BENIGN PROSTATIC HYPERPLASIA WITH LOWER URINARY TRACT SYMP; R33.8 - OTHER RETENTION OF URINE
[2017-02-28 11:30] VITALS: BP 123/54
--- NOTE | 2017-02-28 11:52 | PN ---
Progress Note, Physician History of Present Illness: The patient is an 86 year old male with a history of dementia, UTI, BBH, CVA, HTN, Anemia who presents from [facility] for evaluation following a syncopal episode. The patient is a poor historian and the retirement was contacted for the history. The patient had a ureteral stent placed on . They report that the patient had an unwitnessed fall earlier today at 3am. They report that the patient then had a syncopal episode after an hour of PT prompting his presentation to the ED today. It is unclear if the patient experienced any head trauma. The patient denies any complaints at this time besides some mild generalized weakness and does not recall the event. He denies fevers, chills, headache, SOB, chest pain, abdominal pain. - Current Medication List Current Medications: Active Medications Acetaminophen (Tylenol -) 650 mg PO Q6H PRN PRN Reason: FEVER OR PAIN Last Admin: 02/13/17 22:28 Dose: 650 mg Al Hydroxide/Mg Hydroxide (Mylanta Oral Suspension -) 30 ml PO Q6HPO [facility] Last Admin: 02/28/17 06:22 Dose: 30 ml Amoxicillin/Clavulanate Potassium (Augmentin - 500mg Tablet) 1 tab PO BID@0800, 1730 [facility] Last Admin: 02/28/17 09:36 Dose: 1 tab Atorvastatin Calcium (Lipitor -) 10 mg PO HS [facility] Last Admin: 02/27/17 21:46 Dose: 10 mg Clotrimazole (Lotrimin 1% Cream -) 1 applic TP BID [facility] Last Admin: 02/28/17 09:37 Dose: 1 applic Donepezil HCl (Aricept -) [address] [facility] Last Admin: 02/27/17 21:46 Dose: 5 mg Memantine (Namenda -) 5 mg PO BID [facility] Last Admin: 02/28/17 09:37 Dose: 5 mg Metoprolol Succinate (Toprol Xl -) 50 mg PO DAILY [facility] Last Admin: 02/28/17 09:37 Dose: 50 mg Mirtazapine (Remeron -) 15 mg PO HS [facility] Last Admin: 02/27/17 21:46 Dose: 15 mg Pantoprazole Sodium (Protonix -) 40 mg PO BID [facility] Last Admin: 02/28/17 09:37 Dose: 40 mg Tamsulosin HCl (Flomax -) 0.4 mg PO DAILY@0830 [facility] Last Admin: 02/28/17 09:37 Dose: 0.4 mg - Objective Vital Signs: Vital Signs Temperature 97.9 F 02/28/17 06:00 Pulse Rate 65 02/28/17 06:00 Respiratory Rate 18 02/28/17 10:00 Blood Pressure 123/54 02/28/17 10:00 O2 Sat by Pulse Oximetry (%) 94 L 02/27/17 21:00 Eyes: Yes: WNL, Conjunctiva Clear, EOM Intact HENT: Yes: WNL, Atraumatic, Normocephalic Neck: Yes: WNL, Supple, Trachea Midline Cardiovascular: Yes: WNL, Regular Rate and Rhythm Respiratory: Yes: WNL, Regular, CTA Bilaterally Gastrointestinal: Yes: WNL, Normal Bowel Sounds Genitourinary: Yes: WNL Musculoskeletal: Yes: WNL Extremities: Yes: WNL Edema: No Integumentary: Yes: WNL Neurological: Yes: WNL, Alert, Oriented ...Motor Strength: WNL Psychiatric: Yes: WNL Labs: CBC, BMP 02/25/17 10:55 02/25/17 10:55 INR, PTT INR 1.24 (0.82-1.09) H 02/14/17 07:45 Assessment/Plan - Problems (1) Dementia Assessment/Plan: f/u with psychiatry,neurology. continued periods of confusion. Code(s): F03.90 - UNSPECIFIED DEMENTIA WITHOUT BEHAVIORAL DISTURBANCE (2) Anemia Assessment/Plan: duodenal ulcer. F/u with GI, hematology. Code(s): D64.9 - ANEMIA, UNSPECIFIED Qualifiers: Other causes of anemia: acute posthemorrhagic (3) Fall Code(s): W19.XXXA - UNSPECIFIED FALL, INITIAL ENCOUNTER Qualifiers: Encounter type: initial encounter Qualified Code(s): W19.XXXA - Unspecified fall, initial encounter (4) Syncope Assessment/Plan: orthostatic VS EKG: normal study. CXR: no acute changes. Normal LVEF on ECHO; no significant . Maintain hydration. Carotid US: no significant disease. Ct head: no acute pathology. Hx dementia. Duodenal ulcer with periods of bleeding-->anemia may be etiology. Code(s): R55 - SYNCOPE AND COLLAPSE Qualifiers: Syncope type: unspecified Qualified Code(s): R55 - Syncope and collapse (5) Diabetes mellitus Code(s): E11.9 - TYPE 2 DIABETES MELLITUS WITHOUT COMPLICATIONS (6) Hypoalbuminemia Assessment/Plan: improved to 2.1 Code(s): E88.09 - [facility] DISORDERS OF PLASMA-PROTEIN METABOLISM, NEC (7) Duodenal ulcer Assessment/Plan: bleeding under control, per GI. Code(s): K26.9 - DUODENAL ULCER, UNSP ACUTE OR CHRONIC, W/O HEMOR OR PERF (8) Elevated LFTs Assessment/Plan: now WNL. Code(s): R79.89 - OTHER SPECIFIED ABNORMAL FINDINGS OF BLOOD CHEMISTRY (9) HTN (hypertension) Assessment/Plan: changed to metoprolol ER for better 24 hour coverage. EKG: normal study (resolved ST-T changes). Code(s): I10 - ESSENTIAL (PRIMARY) HYPERTENSION
== END 2017-02-28 11:52 | DRG 682 ==
LOC: JER 12:19 → JERBED 20:39 → OBSVTOIN 21:53 → J4W 02-05 00:54 → J5S 02-08 20:07
PROVIDERS: ADMIT Internal Medicine; ATTEND Internal Medicine
PROC: 30233N1 Transfusion of Nonautologous Red Blood Cells into Peripheral Vein, Percutaneous Approach (ICD-10-PCS; 2017-02-12)
PROC: 0DD98ZX Extraction of Duodenum, Via Natural or Artificial Opening Endoscopic, Diagnostic (ICD-10-PCS; 2017-02-16)
PROC: 0DD68ZX Extraction of Stomach, Via Natural or Artificial Opening Endoscopic, Diagnostic (ICD-10-PCS; principal; 2017-02-16 13:00)
DX: N17.9 Acute kidney failure, unspecified (principal); J18.9 Pneumonia, unspecified organism; K92.2 Gastrointestinal hemorrhage, unspecified; N39.0 Urinary tract infection, site not specified; E87.0 Hyperosmolality and hypernatremia; J98.11 Atelectasis; D62 Acute posthemorrhagic anemia; R55 Syncope and collapse; E78.5 Hyperlipidemia, unspecified; F03.90 Unspecified dementia, unspecified severity, without behavioral disturbance, psychotic disturbance, mood disturbance, and anxiety; I10 Essential (primary) hypertension; N40.1 Benign prostatic hyperplasia with lower urinary tract symptoms; E11.9 Type 2 diabetes mellitus without complications; E88.09 Other disorders of plasma-protein metabolism, not elsewhere classified; K26.9 Duodenal ulcer, unspecified as acute or chronic, without hemorrhage or perforation; E86.0 Dehydration; K75.9 Inflammatory liver disease, unspecified; K29.80 Duodenitis without bleeding
CPT/HCPCS: 36415; 36430; 36511; 36600; 70450-TC; 71010-TC; 71045-TC; 76700-TC; 80048; 80053; 80076; 81003; 81015; 82272; 82550; 82607; 82728; 82746; 82803; 82962; 83540; 83550; 83735; 83883; 84100; 84155; 84165; 84443; 84484; 85025; 85044; 85610; 86038; 86704; 86706; 86708; 86803; 86850; 86900; 86901; 86922; 87040; 87086; 87186; 87324; 87340; 87449; 88305-TC; 90670; 90688; 93005; 93010; 93306-TC; 93880-TC; 94010; 94640; 97116-GP; 97161-GP; 99285-25; G0008; G0009; G0378; J1644; P9038; P9058